=== PATIENT | female | born 1935 | race Caucasian/White ===

== ENCOUNTER 2016-08-16 07:23 | Day surgery (SDC) | payer OTHER, MEDICARE ==
[2016-08-10 12:46] VITALS: BMI 26.9
[2016-08-16] MEDS: TROPICAMIDE 1% OPHTH SOLN 15 ML BOTTLE ONE ×3 (08:45→08:55)
[2016-08-16] MEDS: CYCLOPENTOLATE 2% OPHTH SOLN 2 ML BOTTLE ONE ×3 (08:45→08:55)
[2016-08-16] MEDS: PHENYLEPHRINE 2.5% OPHTH SOLN 15 ML BOTTLE ONE ×3 (08:45→08:55)
[2016-08-16] MEDS: CIPROFLOXACIN 0.3% EYE DROPS 5 ML BOTTLE ONE ×3 (08:45→08:55)
[2016-08-16] MEDS ORDERED: CARBACHOL 0.01% INTRA-OCULAR 1.5 ML VIAL ONE (09:06)
[2016-08-16] MEDS ORDERED: BSS (NA/CA/MG/K) BALANCED SALT SOLUTION OPHTH SOLN 15 ML BOTTLE ONE (09:06)
[2016-08-16] MEDS ORDERED: MIDAZOLAM HCL 2 MG/2 ML SINGLE DOSE VIAL ONE (09:18)
[2016-08-16 10:12] VITALS: TEMP 98.7
--- NOTE | 2016-08-16 10:28 | OP ---
DATE OF PROCEDURE: 08/16/2016 OPERATIVE PROCEDURE: Lens Phacoemulsification with Posterior Chamber Intraocular Lens Placement, Right Eye PREOPERATIVE DIAGNOSIS: Visually Significant Cataract of Right Eye POSTOPERATIVE DIAGNOSIS: Visually Significant Cataract of Right Eye SURGEON: Lionel Jean M.D. ANESTHESIA: [facility] [place] ANESTHESIOLOGIST: PROCEDURE: The patient was brought to the operating room and placed under monitored anesthesia care by Anesthesia. A drop of Tetracaine was then placed over the right eye. The patient was then prepped and draped in the usual sterile manner. A speculum was then placed over the right eye. The eye was then well irrigated with copious amounts of BSS (balanced salt solution). The operating microscope was then moved into position. A paracentesis was performed using a 15 degree blade. At this point 0.5 mL of 1% preservative free-lidocaine was injected into the anterior chamber. Amvisc plus was then injected into the anterior chamber. A clear corneal incision was then formed using a 2.2 mm keratome. A capsulorrhexis was then performed in a continuous circular fashion beginning with a cystotome completed with an Utratas forceps. Hydrodissection was then performed using BSS on a cannula. The phaco probe was then introduced through the corneal wound and the cataract was removed using the phaco chop technique. Approximately 3 seconds of absolute phaco time was used. The remaining cortex was then removed using irrigation and aspiration with an I/A probe. The capsule was then filled with regular Amvisc and the capsule was noted to be intact. A previously selected foldable posterior chamber intraocular lens was then injected into the capsule through the corneal wound using a lens injector. It was then dialed into position using a Sinskey hook. The Amvisc was then removed using irrigation and aspiration. Miostat was then injected through the paracentesis to constrict the pupil. The paracentesis and corneal wound were then hydrated and noted to be water tight. A drop of Maxitrol was then placed over the eye. The speculum was removed and clear shield was taped over the eye. The patient tolerated the procedure well and there were no surgical complications. The patient was asked to follow up in my office the next day. LIONEL JEAN M.D. [id number]
[2016-08-16] MEDS ORDERED: ACETAMINOPHEN 325 MG TABLET (FP) ONE (10:35)
[2016-08-16 10:51] VITALS: BP 139/84; PULSE 82
[2016-08-16] MEDS ORDERED: LACTATED RINGERS SOLUTION 1,000 ML IV SCH (11:00)
[2016-08-16] MEDS ORDERED: ACETAMINOPHEN 325 MG TABLET (FP) PO PRN (14:08)
[2016-08-16] MEDS ORDERED: ONDANSETRON 4 MG/2 ML VIAL IVPUSH PRN (14:09)
== END 2016-08-16 10:45 | disposition home or self-care (01) ==
LOC: FASU 07:23
PROVIDERS: ATTEND Ophthalmology
PROC: 08RJ3JZ Replacement of Right Lens with Synthetic Substitute, Percutaneous Approach (ICD-10-PCS; principal; 2016-08-16 09:48)
DX: H26.8 Other specified cataract (principal)

== ENCOUNTER 2016-10-11 07:05 | Day surgery (SDC) | payer OTHER, MEDICARE ==
[2016-10-06 11:20] VITALS: BMI 26.9
[2016-10-11] MEDS ORDERED: CARBACHOL 0.01% INTRA-OCULAR 1.5 ML VIAL ONE (07:28)
[2016-10-11] MEDS ORDERED: BSS (NA/CA/MG/K) BALANCED SALT SOLUTION OPHTH SOLN 15 ML BOTTLE ONE (07:28)
[2016-10-11] MEDS ORDERED: LIDOCAINE 1% P/F 10 MG/ML VIAL ONE (07:28)
[2016-10-11] MEDS: PHENYLEPHRINE 2.5% OPHTH SOLN 15 ML BOTTLE ONE ×3 (07:35→07:45)
[2016-10-11] MEDS: CIPROFLOXACIN 0.3% EYE DROPS 5 ML BOTTLE ONE ×3 (07:35→07:45)
[2016-10-11] MEDS: TROPICAMIDE 1% OPHTH SOLN 15 ML BOTTLE ONE ×3 (07:35→07:45)
[2016-10-11] MEDS: CYCLOPENTOLATE 2% OPHTH SOLN 2 ML BOTTLE ONE ×3 (07:35→07:45)
[2016-10-11] MEDS ORDERED: MIDAZOLAM HCL 2 MG/2 ML SINGLE DOSE VIAL ONE (08:25)
--- NOTE | 2016-10-11 09:49 | OP ---
DATE OF OPERATION: 10/11/2016 OPERATIVE PROCEDURE: Lens phacoemulsification with posterior chamber intraocular lens placement left eye. PREOPERATIVE DIAGNOSIS: Visually significant cataract of left eye. POSTOPERATIVE DIAGNOSIS: Visually significant cataract of left eye. SURGEON: Lionel Jean M.D. ANESTHESIA: MAC PROCEDURE: The patient was brought to the operating room and placed under monitored anesthesia care by Anesthesia. A drop of tetracaine was then placed over the left eye. The patient was then prepped and draped in the usual sterile manner. A speculum was then placed over the left eye. The eye was then well irrigated with copious amounts of BSS (balanced salt solution). The operating microscope was then moved into position. A paracentesis was performed using a 15 degree blade. At this point 0.5 mL of 1% preservative-free lidocaine was injected into the anterior chamber. Amvisc Plus was then injected into the anterior chamber. A clear corneal incision was then formed using a 2.2 mm keratome. A capsulorrhexis was then performed in a continuous circular fashion beginning with a cystotome and completed with Utrata forceps. Hydrodissection was then performed using BSS on a cannula. The phaco probe was then introduced through the corneal wound and the cataract was removed using the phaco chop technique. Approximately 3 seconds of absolute phaco time was used. The remaining cortex was then removed using irrigation and aspiration with an I/A probe. The capsule was then filled with regular Amvisc and the capsule was noted to be intact. A previously selected foldable posterior chamber intraocular lens was then injected into the capsule through the corneal wound using a lens injector. It was then dialed into position using a Sinskey hook. The Amvisc was then removed using irrigation and aspiration. Miostat was then injected through the paracentesis to constrict the pupil. The paracentesis and corneal wound were then hydrated and noted to be watertight. A drop of Maxitrol was then placed over the eye. The speculum was removed and clear shield was taped over the eye. The patient tolerated the procedure well and there were no surgical complications. The patient was asked to follow up in my office the next day. LIONEL JEAN M.D. [id number]
[2016-10-11 17:50] VITALS: BP 138/76; PULSE 74; TEMP 97.8
== END 2016-10-11 09:35 | disposition home or self-care (01) ==
LOC: FASU 07:05
PROVIDERS: ATTEND Ophthalmology
PROC: 08RK3JZ Replacement of Left Lens with Synthetic Substitute, Percutaneous Approach (ICD-10-PCS; principal; 2016-10-11 08:44)
DX: H26.8 Other specified cataract (principal)

== ENCOUNTER 2016-12-29 14:19 | Inpatient (IN) | payer OTHER, MEDICARE ==
[2016-12-29] MEDS ORDERED: ALBUTEROL SO4 2.5/IPRATROPIUM 0.5 INH SOL 3 ML VIAL.NEB. NEB ONE ×3 (14:43→15:19)
--- NOTE | 2016-12-29 14:45 | PDOC ---
History of Present Illness - General History Source: Patient Exam Limitations: No Limitations - History of Present Illness Initial Comments: 12/29/16 15:01 The patient is a 81 year old female with a significant past medical history of COPD, hypertension, asthma and GERD, who presents to the ED with complaints of shortness of breath and mouth dryness for one day. The patient reports shortness of breath with an associated dry cough. She reports back pain and chest pain associated with cough. She states she has difficulty swallowing secondary to dry mouth. The patient also reports a loss of appetite. The patient reports visiting her PMD over a week ago and just finished 10 days worth of antibiotics for COPD. She also reports started a new pack of steroids today. PMH: COPD, asthma, hypertension, GERD, seasonal allergies, chronic back pain Surgical hx: Cataract removal (2016), Uterine Lift Surgery (over 50 years ago) Social hx:The patient lives at home with her family. Denies smoking, alcohol, or drug use PMD: Dr. Roy. <Florencia Hernandez - Last Filed: 12/29/16 16:04> <Adam Worley - Last Filed: 01/10/17 07:17> - General Chief Complaint: Shortness of Breath Stated Complaint: SOB Time Seen by Provider: 12/29/16 14:27 Past History <Florencia Hernandez - Last Filed: 12/29/16 16:04> - Past Medical History Anemia: No Asthma: Yes Cancer: No Cardiac Disorders: No CVA: No COPD: No CHF: No Dementia: No Diabetes: No GI Disorders: Yes (PATIENT WITH COUGH-NO SPECIFIC REFLUX) Disorders: No HTN: Yes Hypercholesterolemia: No Liver Disease: No Suicide Attempt (Hx): No Seizures: No Thyroid Disease: No - Surgical History Abdominal Surgery: No Appendectomy: No Cardiac Surgery: No Cholecystectomy: No Lung Surgery: No Neurologic Surgery: No Orthopedic Surgery: No - Psycho/Social/Smoking Cessation Hx Anxiety: No Suicidal Ideation: No Smoking Status: No Smoking History: Never smoked Have you smoked in the past 12 months: No Number of Cigarettes Smoked Daily: 0 Hx Alcohol Use: No Drug/Substance Use Hx: No Substance Use Type: None Hx Substance Use Treatment: No <Adam Worley - Last Filed: 01/10/17 07:17> - Past Medical History Allergies/Adverse Reactions: Allergies Allergy/AdvReac Type Severity Reaction Status Date / Time influenza virus vaccine, Allergy Severe Vomiting Verified 10/11/16 07:43 specific [influenza virus vacc,specific] Home Medications: Ambulatory Orders Loratadine [Claritin -] 10 mg PO DAILY 11/08/15 Omeprazole 20 mg PO DAILY tablet 11/27/16 Levofloxacin [Levaquin] 750 mg PO DAILY #5 tab 12/31/16 Review of Systems - Review of Systems Able to Perform ROS?: Yes Comments:: 12/29/16 15:02 CONSTITUTIONAL: + loss of appetite No reported: Fever, Chills, Diaphoresis, Generalized Weakness, Malaise HEENT: +dry mouth, difficulty swallowing No reported: Rhinorrhea, Nasal Congestion, Throat Pain, Throat Swelling, Mouth Swelling, Ear Pain, Eye Pain, Visual Changes CARDIOVASCULAR: No reported: Chest Pain, Syncope, Palpitations, Irregular Heart Rate, Lightheadedness, Peripheral Edema RESPIRATORY: +cough, shortness of breath No reported: SOB with Exertion, Orthopnea, Wheezing, Stridor, Hemoptysis GASTROINTESTINAL: No reported: Abdominal pain, Abdominal Distension, Nausea, Vomiting, Diarrhea, Constipation, Melena, Hematochezia GENITOURINARY: No reported: Dysuria, Frequency, Urgency, Hesitancy, Flank Pain, Genital Pain MUSCULOSKELETAL: +chest pain, back pain No reported: Joint Swelling, Neck Pain SKIN: No reported: Rash, Itching, Pallor HEMEATOLOGIC/IMMUNOLOGIC: No reported: Easy Bleeding, Easy Bruising, Lymphadenopathy, Frequent infections ENDOCRINE: No reported: Unexplained Weight Gain, Unexplained Weight Loss, Heat Intolerance , Cold Intolerance NEUROLOGIC: No reported: Headache, Focal Weakness, Paresthesias, Vertigo, Lightheadedness, Unsteady Gait, Seizure, Mental Status Changes, Incontinence PSYCHIATRIC: No reported: Anxiety, Depression All Other Systems: Reviewed and Negative <Florencia Hernandez - Last Filed: 12/29/16 16:04> *Physical Exam - Physical Exam Comments: 12/29/16 15:03 GENERAL: Well developed, well nourished. Awake and alert. No acute distress. HEENT: Normocephalic, atraumatic. PERRLA, EOMI. No conjunctival pallor. Sclera are non- icteric. Moist mucous membranes. Oropharynx is clear. NECK: Supple. Full ROM. No JVD. Carotid pulses 2+ and symmetric, without bruits. No thyromegaly. No lymphadenopathy. CARDIOVASCULAR: Regular rate and rhythm. No murmurs, rubs, or gallops. Distal pulses are 2+ and symmetric. PULMONARY: + Rales in both bases posteriorly, no wheezes, rhonchi, tachypnea, or observable dyspnea. ABDOMINAL: Soft. Non-tender. Non-distended. No rebound or guarding. No organomegaly. Normoactive bowel sounds. MUSCULOSKELETAL Normal range of motion at all joints. No bony deformities or tenderness. No CVA tenderness. EXTREMITIES: No cyanosis. No clubbing. No edema. No calf tenderness. SKIN: Warm and dry. Normal capillary refill. No rashes. No jaundice. NEUROLOGICAL: Alert, awake, appropriate. Cranial nerves 2-12 intact. No deficits to light touch and temperature in face, upper extremities and lower extremities. No motor deficits in the in face, upper extremities and lower extremities. Normoreflexic in the upper and lower extremities. Normal speech. Toes are down- going bilaterally. Gait is normal without ataxia. PSYCHIATRIC: Cooperative. Good eye contact. Appropriate mood and affect. <Florencia Hernandez - Last Filed: 12/29/16 16:04> ED Treatment Course - LABORATORY CBC & Chemistry Diagram: 12/29/16 14:45 - RADIOLOGY Radiograph Interpretation: 12/29/16 16:04 RAD/CHEST PA & LAT Impression: 2 views of the chest have been submitted. Since 07/13/16, there are progressive bibasilar atelectatic changes with large heart and unfolded aorta. Follow-up recommended. Reported by: Keenan Londono - Medications Given in the ED: ED Medications Discontinued Medications Generic Name Dose Route Start Last Admin Trade Name Freq PRN Reason Stop Dose Admin Albuterol/Ipratropium 1 amp 12/29/16 14:44 12/29/16 14:49 Duoneb - NEB 12/29/16 14:45 1 amp ONCE ONE Administration <Florencia Hernandez - Last Filed: 12/29/16 16:04> - LABORATORY CBC & Chemistry Diagram: 12/31/16 06:15 12/31/16 06:15 <Adam Worley - Last Filed: 01/10/17 07:17> Medical Decision Making - Medical Decision Making 12/29/16 18:40 Chest x-ray shows new bibasilar infiltrates compared to old film 07/13/2016 Patient with cough, shortness of breath, and low O2 saturation of 88-90 on room air, compared to her baseline of 94-95. White blood count is also significantly elevated at 27,000. Lactic acid is negative, and patient does not appear toxic. She is admitted to the hospitalist service for further treatment of her presumed pneumonia. <Adam Worley - Last Filed: 01/10/17 07:17> *DC/Admit/Observation/Transfer - Attestations Scribe Attestion: 12/29/16 15:03 Documentation prepared by Florencia Hernandez, acting as medical technologist chief for Adam Carrasco MD <Florencia Hernandez - Last Filed: 12/29/16 16:04> - Discharge Dispostion Admit: Yes <Adam Worley - Last Filed: 01/10/17 07:17> Diagnosis at time of Disposition: Pneumonia Qualifiers: Pneumonia type: due to unspecified organism Laterality: bilateral Lung location : lower lobe of lung Qualified Code(s): J18.9 - Pneumonia, unspecified organism - Prescriptions
[2016-12-29 15:43] LABS: MCH 29.2 pg (25.7-33.7); MCHC 33.3 g/dl (32.0-36.0); MEAN CELL VOLUME 87.5 fl (80-96); MEAN PLT VOLUME 9.9 fl (7.5-11.1); PLATELET COUNT 196 K/MM3 (134-434); RDW 12.5 % (11.6-15.6); WHITE BLOOD COUNT 27.4 K/mm3 (4.0-10.8)
[2016-12-29 15:51] LABS: CPK(DFH) 41 IU/L (26-140)
[2016-12-29 15:52] LABS: ALBUMIN 3.8 g/dl (3.5-5.0); ALK PHOS 43 U/L (32-92); ANION GAP 9 (8-16); BILIRUBIN,TOTAL 1.1 mg/dl (0.2-1.0); CO2 28 mmol/L (22-28); CREATININE 0.7 mg/dl (0.6-1.3); GLUCOSE,RANDOM 161 mg/dl (74-106); SGOT/AST 30 U/L (10-42); SGPT/ALT 22 U/L (10-40); TOT PROT 6.9 g/dl (6.4-8.3)
[2016-12-29 16:52] LABS: TROPONIN I (DFP) < 0.03 ng/ml (0.03-0.50)
[2016-12-29 18:26] LABS: MCH 29.5 pg (25.7-33.7); MCHC 33.5 g/dl (32.0-36.0); MEAN PLT VOLUME 10.2 fl (7.5-11.1); PLATELET COUNT 183 K/MM3 (134-434); RDW 12.3 % (11.6-15.6)
[2016-12-29 18:27] LABS: PLATELET ESTIMATE ADEQUATE (NORMAL)
[2016-12-29] MEDS ORDERED: CEFTRIAXONE 1 GM in DEXTROSE 5%-WATER - 50 ML IVPB ONE (18:39)
[2016-12-29] MEDS ORDERED: AZITHROMYCIN IVPB 500 MG in DEXTROSE 5%-WATER - 250 ML IVPB ONE (18:40)
[2016-12-29] MEDS ORDERED: cefTRIAXone SODIUM 1 GM VIAL ONE (19:05)
[2016-12-29] MEDS ORDERED: AZITHROMYCIN 500 MG VIAL IVPB ONE (19:05)
[2016-12-29 21:28] VITALS: BMI 25.2
--- NOTE | 2016-12-29 22:02 | HP ---
CHIEF COMPLAINT: cough/chest pain PCP: [facility] HISTORY OF PRESENT ILLNESS: This is an 81 year old female with a past medical history significant for COPD, HTN, Ashtma, GERD who presented with cough, SOB and back/chest pain with cough as per ED note. Pt denies any SOB, just cough and pain. States the pain only occurs when she is coughing. Completed course of antibiotics recently for COPD exacerbation and steroids. ER course was notable for: (1) Ox sat 89-90 RA (2) given ceftriaxone and zithromax (3) Recent Travel: pt denies PAST MEDICAL HISTORY: COPD/asthma HTN GERD chronic back pain PAST SURGICAL HISTORY: cataract removal 2016 uterine lift over 50 years ago Social History: Smoking: pt denies Alcohol: pt denies Drugs: pt denies Family History: mom-ovarian ca sister- colon ca Allergies influenza virus vaccine, specific [influenza virus vacc,specific] Allergy ( Severe, Verified 10/11/16 07:43) Vomiting Home Medications 3 Medication Instructions Recorded Loratadine [Claritin -] 10 mg PO DAILY 11/08/15 Omeprazole 20 mg PO DAILY tablet 11/27/16 Norvasc 2.5mg PO DAILY Albuterol Zoloft 25mg PO DAILY HS REVIEW OF SYSTEMS CONSTITUTIONAL: Absent: fever, chills, diaphoresis, generalized weakness, malaise, loss of appetite, weight change HEENT: Absent: rhinorrhea, nasal congestion, throat pain, throat swelling, difficulty swallowing, mouth swelling, ear pain, eye pain, visual changes CARDIOVASCULAR: Present: chest pain Absent: syncope, palpitations, irregular heart rate, lightheadedness, peripheral edema RESPIRATORY: Present: cough, shortness of breath Absent: dyspnea with exertion, orthopnea, wheezing, stridor, hemoptysis GASTROINTESTINAL: Absent: abdominal pain, abdominal distension, nausea, vomiting, diarrhea, constipation, melena, hematochezia GENITOURINARY: Absent: dysuria, frequency, urgency, hesitancy, hematuria, flank pain, genital pain MUSCULOSKELETAL: Absent: myalgia, arthralgia, joint swelling, back pain, neck pain SKIN: Absent: rash, itching, pallor HEMATOLOGIC/IMMUNOLOGIC: Absent: easy bleeding, easy bruising, lymphadenopathy, frequent infections ENDOCRINE: Absent: unexplained weight gain, unexplained weight loss, heat intolerance, cold intolerance NEUROLOGIC: Absent: headache, focal weakness or paresthesias, dizziness, unsteady gait, seizure, mental status changes, bladder or bowel incontinence PSYCHIATRIC: Absent: anxiety, depression, suicidal or homicidal ideation, hallucinations. PHYSICAL EXAMINATION Vital Signs - 24 hr 3 12/29/16 12/29/16 12/29/16 12/29/16 14:19 15:57 18:25 20:08 Temperature 98.3 F 98 F 98.2 F Pulse Rate 115 H 110 H Pulse Rate [ 99 H 91 H Left] Respiratory 20 17 18 Rate Blood Pressure 150/81 138/65 Blood Pressure 111/64 [Right Arm] O2 Sat by Pulse 90 L 90 L 93 L 98 Oximetry (%) GENERAL: Awake, alert, and fully oriented, in no acute distress. HEAD: Normal with no signs of trauma. EYES: Pupils equal, round and reactive to light, extraocular movements intact, sclera anicteric, conjunctiva clear. No lid lag. EARS, NOSE, THROAT: Ears normal, nares patent, oropharynx clear without exudates. Moist mucous membranes. NECK: Normal range of motion, supple without lymphadenopathy, JVD, or masses. LUNGS: No wheezes, and no crackles. No accessory muscle use. + rhochi L base, diminished R base HEART: Regular rate and rhythm, normal S1 and S2 without murmur, rub or gallop. ABDOMEN: Soft, nontender, not distended, normoactive bowel sounds, no guarding, no rebound, no masses. No hepatomegaly or splenomegaly. MUSCULOSKELETAL: Normal range of motion at all joints. No bony deformities or tenderness. No CVA tenderness. UPPER EXTREMITIES: 2+ pulses, warm, well-perfused. No cyanosis. No clubbing. No peripheral edema. LOWER EXTREMITIES: 2+ pulses, warm, well-perfused. No calf tenderness. No peripheral edema. NEUROLOGICAL: Cranial nerves II-XII intact. Normal speech. Normal gait. PSYCHIATRIC: Cooperative. Good eye contact. Appropriate mood and affect. SKIN: Warm, dry, normal turgor, no rashes or lesions noted, normal capillary refill. Laboratory Results - last 24 hr 3 12/29/16 12/29/16 12/29/16 14:45 14:45 14:45 WBC 27.4 H D RBC 4.52 Hgb 13.2 Hct 39.5 MCV 87.5 MCHC 33.3 RDW 12.5 Plt Count 196 MPV 9.9 Neutrophils % 93.0 H Lymphocytes % 3.0 L D Monocytes % 1.0 L Band Neutrophils 3.0 Platelet Estimate Adequate Sodium 139 Potassium 4.4 Chloride 102 Carbon Dioxide 28 Anion Gap 9 BUN 18 Creatinine 0.7 Creat Clearance w eGFR > 60 Random Glucose 161 H D Lactic Acid Calcium 9.0 Total Bilirubin 1.1 H D AST 30 D ALT 22 D Alkaline Phosphatase 43 Creatine Kinase 41 Troponin I < 0.03 L Total Protein 6.9 Albumin 3.8 3 12/29/16 12/29/16 17:30 18:30 WBC 24.0 H RBC 4.32 Hgb 12.8 Hct 38.0 MCV 88.0 MCHC 33.5 RDW 12.3 Plt Count 183 MPV 10.2 Neutrophils % Y Lymphocytes % Y Monocytes % Band Neutrophils Platelet Estimate Sodium Potassium Chloride Carbon Dioxide Anion Gap BUN Creatinine Creat Clearance w eGFR Random Glucose Lactic Acid 1.695 Calcium Total Bilirubin AST ALT Alkaline Phosphatase Creatine Kinase Troponin I Total Protein Albumin CHEST PA LAT Chest: Shortness of breath. 2 views of the chest have been submitted. Since 07/13/2016, there are progressive bibasilar atelectatic changes with large heart and unfolded aorta. Follow-up recommended. ECG: Sinus tachy rate 102,QTC 450, no acute ST/T wave chanes, cannot r/o inferior infarct, age undetermined ASSESSMENT/PLAN: 81yF with PMH COPD, HTN, Ashtma, GERD, chronic back pain presented with cough with chest and back pain. She is being admitted for pneumonia. Sepsis secondary to community acquired pneumonia - cont ceftriaxone and zofran - monitor CBC, response to antibiotics, ID consult if not improving. COPD exac/hypoxia due to CAP - oxygen 2L NC to maintain sat 90-94 - defer steroids at present as no active wheezing - d/c home albuterol, start duoneb QID Chest pain - likely due to cough although not reproducible - troponin with AM labs Hypertension - cont home amlodipine, BP stable with same. GERD - home omeprazole changed to formulary protonix DVT PPX - heparin 5000u Q8H FEN - defer IVF, appears euvolemic - repeat BMP in am - low sodium diet Dispo: Pt currently requires inpatient management of her emergent condition. Visit type - Emergency Visit Emergency Visit: Yes ED Registration Date: 12/29/16 Care time: The patient presented to the Emergency Department on the above date and was hospitalized for further evaluation of their emergent condition. - New Patient This patient is new to me today: Yes Date on this admission: 12/29/16 - Critical Care Critical Care patient: No
[2016-12-29] MEDS: SERTRALINE HCL 25 MG TABLET (FP) PO SCH (22:28)
[2016-12-30] MEDS: ALBUTEROL SO4 2.5/IPRATROPIUM 0.5 INH SOL 3 ML VIAL.NEB. NEB SCH ×4 (00:07→18:42)
[2016-12-30] MEDS: HEPARIN NA (PORCINE) 5,000 UNITS/ML 1ML VIAL SQ SCH ×3 (02:04→18:42)
[2016-12-30 07:59] LABS: BASOPHIL 1.5 % (0-2.0); EOSINOPHIL 0.5 % (0-4.5); MCHC 33.8 g/dl (32.0-36.0); MEAN CELL VOLUME 88.7 fl (80-96); MEAN PLT VOLUME 9.6 fl (7.5-11.1); NEUTROPHILS 79.5 % (42.8-82.8); PLATELET COUNT 154 K/MM3 (134-434); RDW 12.1 % (11.6-15.6); WHITE BLOOD COUNT 12.4 K/mm3 (4.0-10.8)
[2016-12-30] MEDS ORDERED: CEFTRIAXONE 1 GM in DEXTROSE 5%-WATER - 50 ML IVPB SCH (10:00)
[2016-12-30] MEDS ORDERED: PATIENT'S OWN MEDICATION (NON-FORMULARY) (Omeprazole [Omeprazole] 20 MG) PO SCH (10:00)
[2016-12-30] MEDS ORDERED: AZITHROMYCIN IVPB 500 MG in DEXTROSE 5%-WATER - 250 ML IVPB SCH (10:00)
--- NOTE | 2016-12-30 10:12 | PN ---
Physical Exam: Exam conducted with assistance of [employer] Supervisor #[id number]. SUBJECTIVE: Patient seen and examined. Still complaining of productive cough, chest pain with coughing. States shortness of breath has improved, but still feels that she needs O2. OBJECTIVE: WBC trended down from 24.0 to 12.4. Vital Signs Period Temp Pulse Resp BP Sys/Carr Pulse Ox Last 24 Hr 98.2 F 77 19 137/66 97 GENERAL: The patient is awake, alert, and fully oriented, in no acute distress. EYES: PERRL, extraocular movements intact, sclera anicteric, conjunctiva clear. No ptosis. ENT: Ears normal, nares patent, oropharynx clear without exudates, moist mucous membranes. NECK: Trachea midline, full range of motion, supple. LUNGS: Breath sounds equal, clear to auscultation bilaterally, no wheezes, no crackles, no accessory muscle use. HEART: Regular rate and rhythm, S1, S2 without murmur, rub or gallop. ABDOMEN: Soft, nontender, nondistended, normoactive bowel sounds, no guarding, no rebound, no hepatosplenomegaly, no masses. EXTREMITIES: 2+ pulses, warm, well-perfused, no edema. NEUROLOGICAL: Cranial nerves II through XII grossly intact. Normal speech, gait not observed. PSYCH: Normal mood, normal affect. SKIN: Warm, dry, normal turgor, no rashes or lesions noted Laboratory Results - last 24 hr 12/30/16 07:15 WBC 12.4 H D RBC 3.87 Hgb 11.6 Hct 34.3 MCV 88.7 MCHC 33.8 RDW 12.1 Plt Count 154 MPV 9.6 Neutrophils % 79.5 Lymphocytes % 14.1 D Monocytes % 4.4 D Eosinophils % 0.5 Basophils % 1.5 Active Medications Generic Name Dose Route Start Last Admin Trade Name Freq PRN Reason Stop Dose Admin Albuterol/Ipratropium 1 amp 12/30/16 00:00 12/30/16 05:56 Duoneb - NEB 1 amp QIDR JOSELINE Administration Amlodipine Besylate 2.5 mg 12/30/16 10:00 Norvasc - PO DAILY JOSELINE Azithromycin 500 mg 12/30/16 10:00 Zithromax 500mg Ivpb (Pre-Docked) IVPB DAILY JOSELINE Ceftriaxone Sodium 1 gm 12/30/16 10:00 Rocephin 1gm Ivpb (Pre-Docked) IVPB DAILY JOSELINE Heparin Sodium (Porcine) 5,000 unit 12/30/16 02:00 12/30/16 02:04 Heparin - SQ 5,000 unit Q8H-IV JOSELINE Administration Loratadine 10 mg 12/30/16 10:00 Claritin - PO DAILY JOSELINE Pantoprazole Sodium 20 mg 12/30/16 10:00 Protonix - PO DAILY JOSELINE Sertraline HCl 25 mg 12/29/16 22:00 12/29/16 22:28 Zoloft - PO 25 mg HS JOSELINE Administration ASSESSMENT/PLAN: 81 year old female with CAP and exacerbation of COPD. 1. Sepsis secondary to Community Acquired Pneumonia (tachycardia, leukocytosis) -Continue Ceftriaxone/Azithromycin -May need to broaden if not improving as just completed outpatient course of Cefuroxime -Follow up blood cultures -Follow fever, WBC curve (leukocytosis improving, so far afebrile here) 2. Chest pain -Suspect secondary to coughing -Troponins neg x 2, >12 hrs apart -No EKG changes -Tylenol #3 prn to aid with pain, cough 3. COPD exacerbation -Has improved without steroids here -Continue DuoNebs q6h 4. HTN -BPs at goal -Continue home Norvasc 5. GERD -Patient prefers to take home omeprazole rather than formulary pantoprazole 6. F/E/N -Low sodium diet -Replete lytes as needed 7. Ppx -Sqh 5000 units q8h Dispo: Continues to require inpatient care pending weaning O2. Visit type - Emergency Visit Emergency Visit: Yes ED Registration Date: 12/29/16 Care time: The patient presented to the Emergency Department on the above date and was hospitalized for further evaluation of their emergent condition. - New Patient This patient is new to me today: Yes Date on this admission: 12/30/16 - Critical Care Critical Care patient: No - Discharge Referral Referred to [facility] Med P.C[facility] Yes Physician Referral: Huy Roy MD (Int Med)
[2016-12-30 10:14] LABS: CALCIUM 8.3 mg/dl (8.4-10.2); COCKROFT - GAULT 58.2675; CREATININE 0.7 mg/dl (0.6-1.3); MAGNESIUM 2.1 mg/dL (1.8-2.4); PHOSPHOROUS 3.5 mg/dl (2.5-4.6)
[2016-12-30] MEDS: PANTOPRAZOLE 20 MG TABLET (FP) PO SCH (10:31)
[2016-12-30] MEDS: amLODIPine BESYLATE 2.5 MG TABLET (FP) PO SCH (10:31)
[2016-12-30] MEDS: LORATADINE 10 MG TABLET PO SCH (10:31)
[2016-12-30] MEDS: cefTRIAXone 1 GM/50 ML BAG (PRE-DOCKED) IVPB SCH (10:38)
[2016-12-30] MEDS: AZITHROMYCIN IVPB 500 MG/250 ML D5W PRE-DOCKED IVPB SCH (10:38)
[2016-12-30] MEDS ORDERED: ACETAMINOPHEN WITH CODEINE 300MG/30MG TABLET PO PRN ×2 (10:54→12:20)
--- NOTE | 2016-12-30 16:15 | EKG ---
Test Reason : Blood Pressure : / mmHG Vent. Rate : 102 BPM Atrial Rate : 102 BPM P-R Int : 182 ms QRS Dur : 082 ms QT Int : 346 ms P-R-T Axes : 051 -01 031 degrees QTc Int : 450 ms SINUS TACHYCARDIA CANNOT RULE OUT INFERIOR INFARCT , AGE UNDETERMINED POOR R WAVE PROGRESSION WHEN COMPARED WITH ECG OF 30-MAR-2015 15:59, T WAVE INVERSION NO LONGER EVIDENT IN LATERAL LEADS Confirmed by MD LARRY, MICHELLE ([id number]) on 12/30/2016 4:14:51 PM Referred By: MD GUEVARA Confirmed By:MICHELLE JUAREZ MD
[2016-12-30] MEDS: SERTRALINE HCL 25 MG TABLET (FP) PO SCH (21:50)
[2016-12-31] MEDS: HEPARIN NA (PORCINE) 5,000 UNITS/ML 1ML VIAL SQ SCH ×3 (02:37→17:23)
[2016-12-31] MEDS: ALBUTEROL SO4 2.5/IPRATROPIUM 0.5 INH SOL 3 ML VIAL.NEB. NEB SCH ×5 (02:37→23:47)
[2016-12-31 08:13] LABS: MCH 30.3 pg (25.7-33.7); MCHC 33.8 g/dl (32.0-36.0); MEAN CELL VOLUME 89.4 fl (80-96); MEAN PLT VOLUME 11.1 fl (7.5-11.1); PLATELET COUNT 150 K/MM3 (134-434); RDW 12.3 % (11.6-15.6); WHITE BLOOD COUNT 10.6 K/mm3 (4.0-10.8)
[2016-12-31 08:15] LABS: ANION GAP 5 (8-16); CALCIUM 8.2 mg/dl (8.4-10.2); CO2 27 mmol/L (22-28); CREATININE 0.6 mg/dl (0.6-1.3); GLUCOSE,RANDOM 97 mg/dl (74-106)
--- NOTE | 2016-12-31 09:11 | DS ---
Physical Exam: SUBJECTIVE: Patient seen and examined. Feeling better today, still some cough, but chest pain has resolved. No shortness of breath. OBJECTIVE: WBC has trended down to 10.6 (27.4 on admission). Vital Signs Period Temp Pulse Resp BP Sys/Carr Pulse Ox Last 24 Hr 98.2 F-98.7 F 78-95 16-18 115-148/61-62 93-97 PHYSICAL EXAM GENERAL: The patient is awake, alert, and fully oriented, in no acute distress. HEAD: Normal with no signs of trauma. EYES: PERRL, extraocular movements intact, sclera anicteric, conjunctiva clear. ENT: Ears normal, nares patent, oropharynx clear without exudates, moist mucous membranes. NECK: Trachea midline, full range of motion, supple. LUNGS: Breath sounds equal, clear to auscultation bilaterally, no wheezes, no crackles, no accessory muscle use. HEART: Regular rate and rhythm, S1, S2 without murmur, rub or gallop. ABDOMEN: Soft, nontender, nondistended, normoactive bowel sounds, no guarding, no rebound, no hepatosplenomegaly, no masses. EXTREMITIES: 2+ pulses, warm, well-perfused, no edema. NEUROLOGICAL: Cranial nerves II through XII grossly intact. Normal speech, gait not observed. PSYCH: Normal mood, normal affect. SKIN: Warm, dry, normal turgor, no rashes or lesions noted. LABS Laboratory Results - last 24 hr 12/30/16 12/31/16 12/31/16 07:15 06:15 06:15 WBC 10.6 RBC 3.84 Hgb 11.6 Hct 34.3 MCV 89.4 MCHC 33.8 RDW 12.3 Plt Count 150 MPV 11.1 D Neutrophils % Y Lymphocytes % Y Sodium 135 L 134 L Potassium 3.7 3.7 Chloride 103 102 Carbon Dioxide 28 27 Anion Gap 4 L 5 L BUN 21 H 16 D Creatinine 0.7 0.6 Random Glucose 103 D 97 Calcium 8.3 L 8.2 L Phosphorus 3.5 Magnesium 2.1 Troponin I 0.00 B-Natriuretic Peptide 2222.41 H HOSPITAL COURSE: This is an 81 year old female with a history of asthma/COPD, HTN, and GERD who admitted from the ED on 12/29 with cough, shortness of breath and back/chest pain with cough. Of note, she recently completed a course of prednisone and cefuroxime for similar symptoms. ED course was notable for: WBC: 27.4 CXR with possible bibasilar infiltrates SpO2 89-90% on RA The patient was admitted and started on Ceftriaxone/Azithromycin for CAP. She was given DuoNebs and Tylenol #3. Additional steroids were not given as no wheezing was present. Troponins were negative x 2 >12 hrs apart. BNP was elevated at 2222, but there were no signs of fluid overload on exam. The patient remained afebrile. Blood cultures are negative to date. Today, SpO2 is 94% on RA. The patient denies any shortness of breath or chest pain. She will be discharged with an additional 5 days of treatment with Levaquin ( recently completed course of cephalosporin) and instructions to follow up with Dr. Roy. Return precautions reviewed. Date of Discharge: 12/31/16 Minutes to complete discharge: 35 Discharge Summary Reason For Visit: PNEUMONIA Current Active Problems Pneumonia (Acute) - Home Medications Comprehensive Discharge Medication List: Ambulatory Orders Loratadine [Claritin -] 10 mg PO DAILY 11/08/15 Omeprazole 20 mg PO DAILY tablet 11/27/16 Levofloxacin [Levaquin] 750 mg PO DAILY #5 tab 12/31/16 This patient is new to me today: Yes Date on this admission: 12/31/16 Emergency Visit: Yes ED Registration Date: 12/29/16 Care time: The patient presented to the Emergency Department on the above date and was hospitalized for further evaluation of their emergent condition. Critical Care patient: No - Discharge Referral Referred to [facility] Med [facility] Yes Physician Referral: Huy Roy MD (Int Med)
[2016-12-31] MEDS: AZITHROMYCIN IVPB 500 MG/250 ML D5W PRE-DOCKED IVPB SCH (09:19)
[2016-12-31] MEDS: cefTRIAXone 1 GM/50 ML BAG (PRE-DOCKED) IVPB SCH (09:19)
[2016-12-31] MEDS: amLODIPine BESYLATE 2.5 MG TABLET (FP) PO SCH (09:23)
[2016-12-31] MEDS: LORATADINE 10 MG TABLET PO SCH (09:23)
[2016-12-31] MEDS: PANTOPRAZOLE 20 MG TABLET (FP) PO SCH (09:23)
[2016-12-31] MEDS ORDERED: MECLIZINE HCL 25 MG TABLET (FP) PO ONE (12:07)
--- NOTE | 2016-12-31 12:11 | HOSP ---
Physical Examination Vital Signs: Vital Signs Temperature 98.4 F 12/31/16 06:15 Pulse Rate 101 H 12/31/16 12:05 Respiratory Rate 18 12/31/16 12:05 Blood Pressure 185/87 12/31/16 12:05 O2 Sat by Pulse Oximetry (%) 94 L 12/31/16 06:15 Labs: CBC, BMP 12/31/16 06:15 12/31/16 06:15 Hospitalist Encounter Assessment: Patient prepared for discharge. While sitting in chair, started coughing. Became very dizzy (describes as "room spinning"), near syncopal, developed headache. Assisted back to bed. V/s notable for BP 185/87, P 101. -EKG obtained: NSR, rate of 90, no ST or T wave changes -Will obtain CTH -Will obtain orthostatic v/s -Trial of Meclizine 25mg PO for dizziness Will keep patient in hospital overnight for continued evaluation. CTH: No acute intracranial pathology. Some abnormal findings in the c-spine which daughter states were previously known.
[2016-12-31 14:55] LABS: PLATELET ESTIMATE ADEQUATE (NORMAL)
[2016-12-31] MEDS: SERTRALINE HCL 25 MG TABLET (FP) PO SCH (22:15)
[2017-01-01] MEDS: HEPARIN NA (PORCINE) 5,000 UNITS/ML 1ML VIAL SQ SCH (01:40)
[2017-01-01] MEDS: ALBUTEROL SO4 2.5/IPRATROPIUM 0.5 INH SOL 3 ML VIAL.NEB. NEB SCH (06:22)
[2017-01-01 06:47] VITALS: BP 142/65; PULSE 79; TEMP 97.9
--- NOTE | 2017-01-01 13:57 | EKG ---
Test Reason : Blood Pressure : / mmHG Vent. Rate : 090 BPM Atrial Rate : 090 BPM P-R Int : 184 ms QRS Dur : 088 ms QT Int : 356 ms P-R-T Axes : 061 014 027 degrees QTc Int : 435 ms NORMAL SINUS RHYTHM POOR R WAVE PROGRESSION WHEN COMPARED WITH ECG OF 29-DEC-2016 19:41, NO SIGNIFICANT CHANGE WAS FOUND Confirmed by MD JUAREZ MARJORY ([id number]) on 01/01/2017 1:57:14 PM Referred By: AISHA Confirmed By:MICHELLE JUAREZ MD
== END 2017-01-01 08:50 | disposition home or self-care (01) | DRG 871 ==
LOC: FER 14:19 → FM/S 20:08
PROVIDERS: ADMIT Internal Medicine; ATTEND Nurse Practitioner Family
DX: A41.9 Sepsis, unspecified organism (principal); J18.9 Pneumonia, unspecified organism; J44.1 Chronic obstructive pulmonary disease with (acute) exacerbation; I10 Essential (primary) hypertension; K21.9 Gastro-esophageal reflux disease without esophagitis; R07.9 Chest pain, unspecified
CPT/HCPCS: 36415; 70450-TC; 71020-TC; 80048; 80053; 82550; 83605; 83735; 83880; 84100; 84484; 85025; 87040; 93005; 94640; 99283-25; J1644

== ENCOUNTER 2017-03-12 17:40 | Emergency (ER) | payer OTHER, MEDICARE ==
[2017-03-12 18:01] VITALS: BP 162/62; PULSE 81; TEMP 98.1; BMI 25.7
--- NOTE | 2017-03-12 18:05 | PDOC ---
History of Present Illness - General History Source: Patient Exam Limitations: No Limitations - History of Present Illness Initial Comments: 03/12/17 18:21 The patient is a 81 year old female, with a significant past medical history of hypertension, asthma, chronic cough, and GERD, who presents to the emergency department complaining of dizziness since earlier this morning. As per daughter , the patient was going to put away her nebulizer, when she began to feel dizzy and fell. Daughter denies that the pt reported any head trauma or LOC. Patient s dizziness resolved after the incident, but worsened early in the afternoon. Daughter describes the dizziness as if the room were spinning. Pt has been evaluated in the past for vertigo, but according to daughter, she was not diagnosed with it. 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 Pt denies any fever, chills, headache, ear pain , changes in hearing, or changes in vision. She denies any nausea, vomiting, diarrhea, or constipation. She denies any dysuria, hematuria, frequency, or urgency. She denies any chest pain, shortness, of breath, diaphoresis, or palpitations. Allergies: Influenza virus vaccine Past Surgical History: None reported Social History: Non smoker. No ETOH or drug use. <Keara Randolph - Last Filed: 03/12/17 18:21> <Martir Lawrence - Last Filed: 03/16/17 06:10> - General Chief Complaint: Lightheaded Stated Complaint: DIZZY Time Seen by Provider: 03/12/17 18:03 Past History <Keara Randolph - Last Filed: 03/12/17 18:21> - Past Medical History Anemia: No Asthma: Yes Cancer: No Cardiac Disorders: No CVA: No COPD: No CHF: No Dementia: No Diabetes: No GI Disorders: Yes (PATIENT WITH COUGH-NO SPECIFIC REFLUX) Disorders: No HTN: Yes Hypercholesterolemia: No Liver Disease: No Suicide Attempt (Hx): No Seizures: No Thyroid Disease: No - Surgical History Abdominal Surgery: No Appendectomy: No Cardiac Surgery: No Cholecystectomy: No Lung Surgery: No Neurologic Surgery: No Orthopedic Surgery: No - Psycho/Social/Smoking Cessation Hx Anxiety: No Suicidal Ideation: No Smoking Status: No Smoking History: Never smoked Have you smoked in the past 12 months: No Number of Cigarettes Smoked Daily: 0 Information on smoking cessation initiated: No Hx Alcohol Use: No Drug/Substance Use Hx: No Substance Use Type: None Hx Substance Use Treatment: No <Martir Lawrence - Last Filed: 03/16/17 06:10> - Past Medical History Allergies/Adverse Reactions: Allergies Allergy/AdvReac Type Severity Reaction Status Date / Time influenza virus vaccine, Allergy Severe Vomiting Verified 03/12/17 17:41 specific [influenza virus vacc,specific] Home Medications: Ambulatory Orders Loratadine [Claritin -] 10 mg PO DAILY 11/08/15 Omeprazole 20 mg PO DAILY tablet 11/27/16 Azithromycin [Zithromax 250mg Tablets -] 250 mg PO UTDICT #6 tab 03/12/17 Budesonide/Formeterol Fumarate [SYMBICORT 160/4.5mcg -] 1 inh PO BID 03/12/17 Gabapentin [Neurontin -] 100 mg PO DAILY 03/12/17 Meclizine HCl [Antivert -] 25 mg PO TID PRN #21 tablet 03/12/17 Meloxicam [Mobic] 7.5 mg PO DAILY 03/12/17 Review of Systems - Review of Systems Able to Perform ROS?: Yes Comments:: 03/12/17 18:21 GENERAL/CONSTITUTIONAL: No fever or chills. No weakness. HEAD, EYES, EARS, NOSE AND THROAT: No change in vision. No ear pain or discharge. No sore throat. CARDIOVASCULAR: No chest pain or shortness of breath. RESPIRATORY: Yes: +cough. No wheezing, or hemoptysis. GASTROINTESTINAL: No nausea, vomiting, diarrhea or constipation. GENITOURINARY: No dysuria, frequency, or change in urination. MUSCULOSKELETAL: No joint or muscle swelling or pain. No neck or back pain. SKIN: No rash NEUROLOGIC: Yes: +dizziness, +vertigo. No headache, loss of consciousness, or change in strength/sensation. ENDOCRINE: No increased thirst. No abnormal weight change. HEMATOLOGIC/LYMPHATIC: No anemia, easy bleeding, or history of blood clots. ALLERGIC/IMMUNOLOGIC: No hives or skin allergy. <Keara Randolph - Last Filed: 03/12/17 18:21> *Physical Exam - Vital Signs Last Vital Signs Temp Pulse Resp BP Pulse Ox 98.1 F 81 20 162/62 93 L 07/31/17 17:41 03/12/17 17:41 03/12/17 17:41 03/12/17 17:41 03/12/17 17:41 - Physical Exam Comments: 03/12/17 18:21 GENERAL: Awake, alert, and fully oriented, in no acute distress HEAD: No signs of trauma EYES: Nystagmus. PERRLA, sclera anicteric, conjunctiva clear ENT: Auricles normal inspection, hearing grossly normal, nares patent, oropharynx clear without exudates. Moist mucosa NECK: Normal ROM, supple, no lymphadenopathy, JVD, or masses LUNGS: Breath sounds equal, clear to auscultation bilaterally. No wheezes, and no crackles HEART: Regular rate and rhythm, normal S1 and S2, no murmurs, rubs or gallops ABDOMEN: Soft, nontender, normoactive bowel sounds. No guarding, no rebound. No masses EXTREMITIES: Normal range of motion, no edema. No clubbing or cyanosis. No cords, erythema, or tenderness NEUROLOGICAL: Cranial nerves II through XII grossly intact. Normal speech, normal gait SKIN: Warm, Dry, normal turgor, no rashes or lesions noted. <Keara Randolph - Last Filed: 03/12/17 18:21> - Vital Signs Last Vital Signs Temp Pulse Resp BP Pulse Ox 98.1 F 81 20 162/62 93 L 03/12/17 17:41 03/12/17 17:41 03/12/17 17:41 03/12/17 17:41 03/12/17 17:41 <Martir Lawrence - Last Filed: 03/16/17 06:10> *DC/Admit/Observation/Transfer - Attestations Scribe Attestion: 03/12/17 18:22 Documentation prepared by Keara Randolph, acting as vp medical for Martir Lawrence DO. <Keara Randolph - Last Filed: 03/12/17 18:21> - Attestations Physician Attestion: 03/16/17 06:10 I, Dr. Martir Lawrence, attest that this document has been prepared under my direction and personally reviewed by me in its entirety. I further attest, that it accurately reflects all work, treatment, procedures and medical decision -making performed by me. <Martir Lawrence - Last Filed: 03/16/17 06:10> Diagnosis at time of Disposition: Vertigo, Bronchitis - Discharge Dispostion Disposition: HOME Condition at time of disposition: Stable - Prescriptions Prescriptions: Meclizine HCl [Antivert -] 25 mg PO TID PRN #21 tablet PRN Reason: Vertigo Azithromycin [Zithromax 250mg Tablets -] 250 mg PO UTDICT #6 tab - Referrals Referrals: Huy Roy MD [Staff Physician] - 14 days - Patient Instructions Printed Discharge Instructions: DI for Vertigo Additional Instructions: continue meclizine as needed for vertigo begin Azithromycin; take as directed return to ER if you have worsening dizziness or cough followup with Dr Roy within 2 weeks followup for swallowing evaluation tomorrow as scheduled
[2017-03-12] MEDS ORDERED: MECLIZINE HCL 25 MG TABLET (FP) PO ONE (18:14)
--- NOTE | 2017-03-12 19:51 | PDOC ---
*Physical Exam - Vital Signs Last Vital Signs Temp Pulse Resp BP Pulse Ox 98.1 F 81 20 162/62 93 L 03/12/17 17:41 03/12/17 17:41 03/12/17 17:41 03/12/17 17:41 03/12/17 17:41 ED Treatment Course - Medications Given in the ED: ED Medications Discontinued Medications Generic Name Dose Route Start Last Admin Trade Name Freq PRN Reason Stop Dose Admin Meclizine HCl 25 mg 03/12/17 18:14 03/12/17 18:45 Antivert - PO 03/12/17 18:15 25 mg ONCE ONE Administration 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 - 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: Care of this patient received from Dr. Lawrence. Chest x-ray (interpreted by ) reveals bibasilar atelectasis; infiltrates could not be ruled out. Patient and her son interviewed. Cough has been present for many months without clear etiology. It may be somewhat more severe in the last few days; she denies shortness of breath/fever. Urinalysis shows no evidence of acute UTI or other abnormalities Patient will be discharged with a refill prescription for meclizine (25 mg up to 3 times a day as needed for vertigo) as well as prescription for azithromycin ([id number]). She should taper the azithromycin as prescribed. Patient should follow-up with her general medical doctor, Dr. Roy, within the next week and return to the ER if she has either severe vertigo or severe cough/ shortness of breath/high fever. *DC/Admit/Observation/Transfer Diagnosis at time of Disposition: Vertigo, Bronchitis - Discharge Dispostion Disposition: HOME Condition at time of disposition: Stable - Prescriptions Prescriptions: Meclizine HCl [Antivert -] 25 mg PO TID PRN #21 tablet PRN Reason: Vertigo Azithromycin [Zithromax 250mg Tablets -] 250 mg PO UTDICT #6 tab - Referrals Referrals: Huy Roy MD [Staff Physician] - 14 days - Patient Instructions Printed Discharge Instructions: DI for Vertigo Additional Instructions: continue meclizine as needed for vertigo begin Azithromycin; take as directed return to ER if you have worsening dizziness or cough followup with Dr Roy within 2 weeks followup for swallowing evaluation tomorrow as scheduled
[2017-03-12 20:09] LABS: URINE APPEARANCE Clear; URINE BILIRUBIN Negative (NEGATIVE); URINE GLUCOSE (UA) Negative (NEGATIVE); URINE KETONE Negative (NEGATIVE); URINE LEUK ESTERASE Negative (NEGATIVE); URINE NITRITE Negative (NEGATIVE); URINE PROTEIN Negative (NEGATIVE); URINE UROBILINOGEN 0.2 (0.2-1.0)
[2017-03-12 20:14] LABS: URINE BLOOD Trace-intact (NEGATIVE); URINE COLOR YELLOW
[2017-03-12 21:56] LABS: URINE RBC 0-2 /hpf (0-3); URINE WBC 0-1 (3-5)
[2017-03-12 21:57] LABS: URINE BACTERIA FEW /hpf (NEGATIVE)
== END 2017-03-12 20:55 | disposition home or self-care (01) ==
LOC: FER 17:40
DX: R42 Dizziness and giddiness (principal); J40 Bronchitis, not specified as acute or chronic; I10 Essential (primary) hypertension; J45.909 Unspecified asthma, uncomplicated; R05 Cough; K21.9 Gastro-esophageal reflux disease without esophagitis; Z88.8 Allergy status to other drugs, medicaments and biological substances
CPT/HCPCS: 71020-TC; 81003; 81015; 99282-25

== ENCOUNTER 2017-11-24 09:45 | Emergency (ER) | payer OTHER, MEDICARE ==
[2017-11-24 09:54] VITALS: BMI 26.9
--- NOTE | 2017-11-24 09:55 | PDOC ---
History of Present Illness - General Chief Complaint: Respiratory Stated Complaint: SOB, COUGH, "WAS WHEEZING" Time Seen by Provider: 11/24/17 09:48 - History of Present Illness Initial Comments: 11/24/17 09:55 82yo hungarian speaking female presents ambulatory from home c/o wheezing, sob, and a low pulse ox. Pt with a hx of asthma/copd. States the sob started this AM. States she checked her pulse ox and it was in the low 80s. States she used her albuterol and had some relief of the SOB, but not 100%. States she always has a cough, that is productive of white/clear sputum. No change in cough or sputum production. No cp. No fevers/chills. C/o mild epigastric pain - no radiation. No n/v/d. No dysuria. Last steroid pack was in September. Last hospital admission was last year. Pt denies LE swelling. Hx of vertigo and states she cannot lay flat. 11/24/17 10:00 PMHx: COPD/Asthma, HTN, Chronic back pain, HTN PSHx: cataract sx 2015, uterine lift Allergies: FLU vaccine Social: denies drugs, etoh, smoking Past History - Past Medical History Allergies/Adverse Reactions: Allergies Allergy/AdvReac Type Severity Reaction Status Date / Time influenza virus vaccine, Allergy Severe Vomiting Verified 11/24/17 09:50 specific [influenza virus vacc,specific] Home Medications: Ambulatory Orders Loratadine [Claritin -] 10 mg PO DAILY 11/08/15 Budesonide/Formeterol Fumarate [SYMBICORT 160/4.5mcg -] 1 inh PO BID 03/12/17 Gabapentin [Neurontin -] 100 mg PO DAILY 03/12/17 Meclizine HCl [Antivert -] 25 mg PO TID PRN #21 tablet 03/12/17 Meloxicam [Mobic] 7.5 mg PO DAILY 03/12/17 Azithromycin [Zithromax 250mg Tablets -] 250 mg PO UTDICT #6 tab 11/24/17 Famotidine 20 mg PO DAILY 11/24/17 Pantoprazole Sodium 40 mg PO DAILY 11/24/17 Prednisone [Deltasone] 40 mg PO DAILY #8 tablet 11/24/17 Anemia: No Asthma: Yes Cancer: No Cardiac Disorders: No CVA: No COPD: Yes CHF: No Dementia: No Diabetes: No GI Disorders: Yes Disorders: No HTN: Yes Hypercholesterolemia: No Liver Disease: No Seizures: No Thyroid Disease: No Other medical history: VERTIGO - Surgical History Abdominal Surgery: No Appendectomy: No Cardiac Surgery: No Cholecystectomy: No Lung Surgery: No Neurologic Surgery: No Orthopedic Surgery: No - Suicide/Smoking/Psychosocial Hx Smoking Status: No Smoking History: Never smoked Have you smoked in the past 12 months: No Number of Cigarettes Smoked Daily: 0 Hx Alcohol Use: No Drug/Substance Use Hx: No Substance Use Type: None Hx Substance Use Treatment: No Review of Systems - Review of Systems Able to Perform ROS?: Yes Comments:: 11/24/17 10:01 daughter at the bedside translating Is the patient limited Occitan proficient: Yes Constitutional: No: Chills, Fever HEENTM: No: Nose Congestion, Throat Pain, Throat Swelling Respiratory: Yes: Cough, Shortness of Breath, SOB with Exertion, SOB at Rest, Wheezing, Productive cough Cardiac (ROS): No: Chest Pain, Edema, Irregular Heart Rate, Chest Tightness ABD/GI: Yes: Abdominal cramping. No: Diarrhea, Nausea, Vomiting : No: Burning, Dysuria Musculoskeletal: No: Back Pain Integumentary: No: Rash Neurological: No: Headache, Numbness, Unsteady Gait All Other Systems: Reviewed and Negative *Physical Exam - Vital Signs Last Vital Signs Temp Pulse Resp BP Pulse Ox 97.5 F L 86 20 155/88 95 11/24/17 09:45 11/24/17 09:45 11/24/17 09:45 11/24/17 09:45 11/24/17 09:45 - Physical Exam General Appearance: Yes: Nourished, Appropriately Dressed. No: Apparent Distress HEENT: positive: EOMI, SALO, Normal Voice, Pharynx Normal. negative: Rhinorrhea Neck: positive: Trachea midline, Supple. negative: Rigid Respiratory/Chest: positive: Wheezing. negative: Chest Tender, Respiratory Distress, Accessory Muscle Use, Crackles, Rales, Rhonchi, Stridor Cardiovascular: positive: Regular Rhythm, Regular Rate, S1, S2. negative: Edema Gastrointestinal/Abdominal: positive: Normal Bowel Sounds, Tender (epigastric), Flat, Soft. negative: Guarding, Rebound Musculoskeletal: positive: Normal Inspection, Other (ambulatory with a steady gait). negative: CVA Tenderness Extremity: positive: Normal Capillary Refill, Normal Inspection, Normal Range of Motion. negative: Swelling, Calf Tenderness Integumentary: positive: Normal Color, Dry, Warm Neurologic: positive: talent scout II-XII NML intact, Fully Oriented, Alert, Normal Mood/ Affect, Normal Response, Motor Strength 5/5 Heart Score/ECG Review - ECG Intrepretation Comment:: 11/24/17 10:24 sinus at 93, poor r wave progression, L cuellar axis, q waves inferior leads that are age indeterminate, no acute st/t wave findings, unchanged from prior 12/27 ED Treatment Course - LABORATORY CBC & Chemistry Diagram: 11/24/17 10:00 11/24/17 10:00 Medical Decision Making - Medical Decision Making 11/24/17 10:04 a/p:P 82yo female with wheezing and sob this AM -suspect mild copd exacerbation -will check labs, ekg, cxr -will give neb, solumedrol, zantac for epigastric pain (hx of GERD) -will monitor and reassess -vital signs stable -speaking in full sentences -nontoxic in appearance 11/24/17 11:04 labs reviewed - normal wbc, negative trop 11/24/17 11:24 re-eval: lungs cta pulse ox 96% RA no resp distress poss early infiltrate on cxr - will start abx discussed the plan with the patient pt requesting to go home answered all questions. Discussed all reasons to return to the ED and need for follow up with her PMD. stable for d/c to home *DC/Admit/Observation/Transfer Diagnosis at time of Disposition: COPD (chronic obstructive pulmonary disease), Pneumonia, Shortness of breath - Discharge Dispostion Disposition: HOME Condition at time of disposition: Stable Admit: No - Prescriptions Prescriptions: Azithromycin [Zithromax 250mg Tablets -] 250 mg PO UTDICT #6 tab Prednisone [Deltasone] 40 mg PO DAILY #8 tablet - Referrals Referrals: Huy Roy MD [Primary Care Provider] - - Patient Instructions Printed Discharge Instructions: DI for Chronic Bronchitis, DI for Pneumonia -- Adult Additional Instructions: Please take all medications as prescribed. Please return to the ED with any further concerns or complaints. Please follow up with your PMD on Sunday. Please start the oral steroids tomorrow. Please start the antibiotics tomorrow. - Post Discharge Activity - Attestations Physician Attestion: 11/24/17 11:29 I, Dr. Karen Soto, DO, attest that this document has been prepared under my direction and personally reviewed by me in its entirety. I further attest, that it accurately reflects all work, treatment, procedures and medical decision -making performed by me.
[2017-11-24] MEDS ORDERED: ALBUTEROL SO4 2.5/IPRATROPIUM 0.5 INH SOL 3 ML VIAL.NEB. NEB ONE (09:57)
[2017-11-24] MEDS ORDERED: RANITIDINE HCL 150 MG TABLET (FP) PO ONE (09:57)
[2017-11-24] MEDS ORDERED: methylPREDNISolone NA SUCC 125 MG/2 ML VIAL IVPB ONE (09:57)
[2017-11-24] MEDS ORDERED: RANITIDINE HCL 150 MG TABLET (FP) ONE (10:06)
[2017-11-24] MEDS ORDERED: methylPREDNISolone NA SUCC 125 MG/2 ML VIAL ONE (10:06)
[2017-11-24] MEDS ORDERED: IPRATROPIUM BR 0.02% 0.5 MG/2.5 ML VIAL.NEB. NEB ONE (10:07)
[2017-11-24] MEDS ORDERED: ALBUTEROL SO4 0.083% IH SOL 2.5 MG/3 ML VIAL.NEB. NEB ONE (10:07)
[2017-11-24 10:11] LABS: BASO % 2.5 % (0-2.0); EOS % 1.2 % (0-4.5); HEMATOCRIT 39.9 % (32.4-45.2); HEMOGLOBIN 13.3 GM/dl (10.7-15.3); LYMPH % 13.6 % (8-40); MCHC 33.4 g/dl (32.0-36.0); MEAN PLT VOLUME 7.8 fl (7.5-11.1); MONO % 6.2 % (3.8-10.2); NEUT % 76.5 % (42.8-82.8); PLATELET COUNT 247 K/MM3 (134-434); RBC 4.43 M/mm3 (3.60-5.2); RDW 12.4 % (11.6-15.6); WHITE BLOOD COUNT 10.1 K/mm3 (4.0-10.8)
[2017-11-24 10:41] LABS: ALK PHOS 42 U/L (32-92); ANION GAP 6 (8-16); BILIRUBIN,TOTAL 0.7 mg/dl (0.2-1.0); BLOOD UREA NITROGEN 12 mg/dl (7-18); CALCIUM 8.9 mg/dl (8.4-10.2); CHLORIDE 101 mmol/L (98-107); CO2 32 mmol/L (22-28); CREATININE 0.6 mg/dl (0.6-1.3); GLUCOSE,RANDOM 107 mg/dl (74-106); POTASSIUM 4.1 mmol/L (3.5-5.1); SGOT/AST 19 U/L (10-42); SGPT/ALT 19 U/L (10-40); SODIUM 139 mmol/L (136-145)
[2017-11-24] MEDS ORDERED: AZITHROMYCIN 250 MG TABLET PO ONE (11:22)
[2017-11-24] MEDS ORDERED: AZITHROMYCIN 250 MG TABLET ONE (11:25)
[2017-11-24 11:40] VITALS: BP 145/79; PULSE 76; TEMP 97.8
[2017-11-24 12:43] LABS: LIPASE 105 U/L (73-393)
--- NOTE | 2017-11-26 12:34 | EKG ---
Test Reason : Blood Pressure : / mmHG Vent. Rate : 093 BPM Atrial Rate : 093 BPM P-R Int : 188 ms QRS Dur : 082 ms QT Int : 354 ms P-R-T Axes : 051 -06 028 degrees QTc Int : 440 ms NORMAL SINUS RHYTHM CANNOT RULE OUT INFERIOR INFARCT , AGE UNDETERMINED ABNORMAL ECG WHEN COMPARED WITH ECG OF 31-DEC-2016 12:08, NO SIGNIFICANT CHANGE WAS FOUND Confirmed by SANDRO MCKEON MD ([id number]) on 11/26/2017 12:33:36 PM Referred By: JESSICA NEFF Confirmed By:SANDRO MCKEON MD
== END 2017-11-24 11:35 | disposition home or self-care (01) ==
LOC: FER 09:45
PROC: 3E0337Z Introduction of Electrolytic and Water Balance Substance into Peripheral Vein, Percutaneous Approach (ICD-10-PCS; principal; 2017-11-24)
PROC: 3E033GC Introduction of Other Therapeutic Substance into Peripheral Vein, Percutaneous Approach (ICD-10-PCS; 2017-11-24)
DX: J44.9 Chronic obstructive pulmonary disease, unspecified (principal); J18.9 Pneumonia, unspecified organism; I10 Essential (primary) hypertension
CPT/HCPCS: 36415; 71046-TC-FY; 80053; 82550; 83690; 84484; 85025; 93005; 99284-25

== ENCOUNTER 2018-08-02 13:13 | Emergency (ER) | payer OTHER, MEDICARE ==
[2018-08-02 13:17] VITALS: TEMP 98.7; BMI 26.9
[2018-08-02] MEDS ORDERED: ALBUTEROL SO4 2.5/IPRATROPIUM 0.5 INH SOL 3 ML VIAL.NEB. NEB ONE ×4 (13:27→14:16)
[2018-08-02] MEDS ORDERED: predniSONE 20 MG TABLET (UD) PO ONE (13:32)
--- NOTE | 2018-08-02 13:33 | PDOC ---
History of Present Illness - General Chief Complaint: Lightheaded Stated Complaint: HEADACHE, DIZZY, SOB Time Seen by Provider: 08/02/18 13:15 History Source: Patient - History of Present Illness Initial Comments: 08/02/18 13:33 Patient is 83F with history of COPD/emphysema, HTN, chronic migraines, vertigo here today complaining of 1 day of cough and shortness of breath. Denies chest pain, fevers, chills, nausea, vomiting. Patient endorses dizziness with coughing , head movement, and sudden movement that is relieved with rest. No sick contacts. Did not get flu shot this year. Patient states that she has vocal cord swelling that makes her at higher risk for aspiration pneumonia. Patient endorses ear pain, no discharge. Ear pain and headache is improved from earlier. Past History - Past Medical History Allergies/Adverse Reactions: Allergies Allergy/AdvReac Type Severity Reaction Status Date / Time influenza virus vaccine, Allergy Severe Vomiting Verified 08/02/18 13:14 specific [influenza virus vacc,specific] Home Medications: Ambulatory Orders Budesonide/Formeterol Fumarate [SYMBICORT 160/4.5mcg -] 1 inh PO BID 03/12/17 Pantoprazole Sodium 40 mg PO DAILY 11/24/17 Azithromycin 250 mg PO DAILY #4 tablet 08/02/18 Divalproex *ER* [Depakote *ER* -] 750 mg PO DAILY 08/02/18 Prednisone [Prednisone 50 MG TABLETS] 50 mg PO DAILY #4 tablet 08/02/18 Anemia: No Asthma: Yes Cancer: No Cardiac Disorders: No CVA: No COPD: Yes CHF: No Dementia: No Diabetes: No GI Disorders: Yes Disorders: No HTN: Yes Hypercholesterolemia: No Liver Disease: No Seizures: No Thyroid Disease: No Other medical history: MIGRAINE HEADACHES, VERTIGO - Surgical History Abdominal Surgery: No Appendectomy: No Cardiac Surgery: No Cholecystectomy: No Lung Surgery: No Neurologic Surgery: No Orthopedic Surgery: No - Suicide/Smoking/Psychosocial Hx Smoking Status: No Smoking History: Never smoked Have you smoked in the past 12 months: No Number of Cigarettes Smoked Daily: 0 Information on smoking cessation initiated: No Hx Alcohol Use: No Drug/Substance Use Hx: No Substance Use Type: None Hx Substance Use Treatment: No Review of Systems - Review of Systems Able to Perform ROS?: Yes Comments:: 08/02/18 13:37 GENERAL/CONSTITUTIONAL: No fever or chills. No weakness. HEAD, EYES, EARS, NOSE AND THROAT: No change in vision. +R ear pain. No sore throat. CARDIOVASCULAR: No chest pain +shortness of breath RESPIRATORY: +cough, +wheezing, no hemoptysis. GASTROINTESTINAL: No nausea, vomiting, diarrhea or constipation. GENITOURINARY: No dysuria, frequency, or change in urination. SKIN: No rash NEUROLOGIC: +headache, +vertigo, no loss of consciousness, or change in strength /sensation. ENDOCRINE: No increased thirst. No abnormal weight change HEMATOLOGIC/LYMPHATIC: No anemia, easy bleeding, or history of blood clots. ALLERGIC/IMMUNOLOGIC: No hives or skin allergy. *Physical Exam - Vital Signs Last Vital Signs Temp Pulse Resp BP Pulse Ox 98.7 F 98 H 18 152/89 94 L 08/02/18 13:13 08/02/18 13:13 08/02/18 13:13 08/02/18 13:13 08/02/18 13:13 - Physical Exam Comments: 08/02/18 13:47 GENERAL: Awake, alert, and fully oriented, in no acute distress HEAD: No signs of trauma, normocephalic, atraumatic EYES: PERRLA, EOMI, sclera anicteric, conjunctiva clear ENT: Auricles normal inspection, hearing grossly normal, nares patent, oropharynx clear without exudates. Moist mucosa NECK: Normal ROM, supple, no lymphadenopathy, JVD, or masses LUNGS: No distress, speaks full sentences, scattered wheezes bilaterally HEART: Regular rate and rhythm, normal S1 and S2, no murmurs, rubs or gallops, peripheral pulses normal and equal bilaterally. ABDOMEN: Soft, nontender, normoactive bowel sounds. No guarding, no rebound. No masses EXTREMITIES: Normal inspection, Normal range of motion, no edema. No clubbing or cyanosis. NEUROLOGICAL: Cranial nerves II through XII grossly intact. Normal speech, normal gait, no focal sensorimotor deficits SKIN: Warm, Dry, normal turgor, no rashes or lesions noted. Moderate Sedation - Procedure Monitoring Vital Signs: Procedure Monitoring Vital Signs Temperature 98.7 F 08/02/18 13:13 Pulse Rate 98 H 08/02/18 13:13 Respiratory Rate 18 12/21/18 13:13 Blood Pressure 152/89 12/21/18 13:13 O2 Sat by Pulse Oximetry (%) 94 L 08/02/18 13:13 ED Treatment Course - LABORATORY CBC & Chemistry Diagram: 08/02/18 13:54 08/02/18 13:54 - RADIOLOGY Radiology Studies Ordered: Category Date Time Status CHEST PA & LAT [RAD] Stat Radiology 08/02/18 13:26 Ordered Medical Decision Making - Medical Decision Making 08/02/18 13:47 Patient is 83F with history of COPD, migraines, vertigo here today with cough, shortness of breath. Vitals normal and stable. DDx includes, but is not limited to: bronchitis, copd exacerbation, pneumonia, acs, arrhythmia. Suspect likely mild copd exacerbation with viral syndrome. EKG shows normal sinus rhythm with rate of 93. No st elevations/depressions. Normal axis. Normal intervals. Q waves in III and aVF. No significant t wave inversions. 08/02/18 14:48 CXR shows chronic disease. Patient's lungs now clear. No dizziness. Has PCP follow up. Will discharge to home with PCP follow up, prednisone, azithromycin. Return precautions given. *DC/Admit/Observation/Transfer Diagnosis at time of Disposition: Bronchitis, COPD (chronic obstructive pulmonary disease) - Discharge Dispostion Disposition: HOME Condition at time of disposition: Good Decision to Admit order: No - Prescriptions Prescriptions: Azithromycin 250 mg PO DAILY #4 tablet - Referrals Referrals: Huy Roy MD [Primary Care Provider] - - Patient Instructions Printed Discharge Instructions: DI for Acute Bronchitis Additional Instructions: Please call your primary care doctor today to set up a follow up appointment this week. Please return immediately if you have new, worsening or concerning symptoms, especially fever, increasing shortness of breath, and chest pain. - Post Discharge Activity
[2018-08-02] MEDS ORDERED: MECLIZINE HCL 25 MG TABLET (FP) PO ONE (13:36)
[2018-08-02] MEDS ORDERED: predniSONE 20 MG TABLET (UD) ONE (13:37)
--- NOTE | 2018-08-02 13:43 | PDOC ---
History of Present Illness - General Chief Complaint: Lightheaded Stated Complaint: HEADACHE, DIZZY, SOB Time Seen by Provider: 08/02/18 13:15 History Source: Patient Exam Limitations: No Limitations - History of Present Illness Initial Comments: 08/02/18 13:40 83 year old female with past medical history of COPD, hypertension, migraines, vertigo presents with cough and increasing difficulty breathing since yesterday. The patient developed intermittent clearish productive cough. No fevers or chills. Denies chest pain. States she's been using her albuterol at home. Has noticed that when she also turns her head, she becomes increasing more dizzy just like her previous vertigo. Reports mild right-sided earache. No sick contacts. Past History - Past Medical History Allergies/Adverse Reactions: Allergies Allergy/AdvReac Type Severity Reaction Status Date / Time influenza virus vaccine, Allergy Severe Vomiting Verified 08/02/18 13:14 specific [influenza virus vacc,specific] Home Medications: Ambulatory Orders Budesonide/Formeterol Fumarate [SYMBICORT 160/4.5mcg -] 1 inh PO BID 03/12/17 Pantoprazole Sodium 40 mg PO DAILY 11/24/17 Azithromycin 250 mg PO DAILY #4 tablet 08/02/18 Divalproex *ER* [Depakote *ER* -] 750 mg PO DAILY 08/02/18 Prednisone [Prednisone 50 MG TABLETS] 50 mg PO DAILY #4 tablet 08/02/18 Anemia: No Asthma: Yes Cancer: No Cardiac Disorders: No CVA: No COPD: Yes CHF: No Dementia: No Diabetes: No GI Disorders: Yes Disorders: No HTN: Yes Hypercholesterolemia: No Liver Disease: No Seizures: No Thyroid Disease: No Other medical history: MIGRAINE HEADACHES, VERTIGO - Surgical History Abdominal Surgery: No Appendectomy: No Cardiac Surgery: No Cholecystectomy: No Lung Surgery: No Neurologic Surgery: No Orthopedic Surgery: No - Suicide/Smoking/Psychosocial Hx Smoking Status: No Smoking History: Never smoked Have you smoked in the past 12 months: No Number of Cigarettes Smoked Daily: 0 Information on smoking cessation initiated: No Hx Alcohol Use: No Drug/Substance Use Hx: No Substance Use Type: None Hx Substance Use Treatment: No Review of Systems - Review of Systems Able to Perform ROS?: Yes Comments:: 08/02/18 13:43 GENERAL/CONSTITUTIONAL: [No fever or chills. No weakness. No weight change.] HEAD, EYES, EARS, NOSE AND THROAT: [No change in vision. No discharge. No sore throat.] + Right sided ear pain CARDIOVASCULAR: [No chest pain or shortness of breath.] RESPIRATORY: +SOB, +cough GASTROINTESTINAL: [No nausea, vomiting, diarrhea or constipation. No rectal bleeding.] GENITOURINARY: [No dysuria, frequency, or change in urination.] MUSCULOSKELETAL: [No joint or muscle swelling or pain. No neck or back pain.] SKIN AND BREASTS: [No rash or easy bruising.] NEUROLOGIC: [No headache, vertigo, loss of consciousness, or loss of sensation.] PSYCHIATRIC: [No depression or anxiety.] ENDOCRINE: [No increased thirst. No abnormal weight change.] HEMATOLOGIC/LYMPHATIC: [No anemia, easy bleeding, or history of blood clots.] ALLERGIC/IMMUNOLOGIC: [No hives or skin allergy. No latex allergy.] *Physical Exam - Vital Signs Last Vital Signs Temp Pulse Resp BP Pulse Ox 98.7 F 98 H 18 152/89 94 L 08/02/18 13:13 08/02/18 13:13 08/02/18 13:13 08/02/18 13:13 08/02/18 13:13 - Physical Exam Comments: 08/02/18 13:47 GENERAL: Awake, alert, and fully oriented, in no acute distress HEAD: No signs of trauma EYES: PERRLA, EOMI, sclera anicteric, conjunctiva clear ENT: Auricles normal inspection, hearing grossly normal, nares patent, oropharynx clear without exudates. Moist mucosa. TMs bilaterally clear NECK: Normal ROM, supple LUNGS: Tight breath sounds and feint bilateral expiratory wheezing. HEART: Regular rate and rhythm, normal S1 and S2, no murmurs, rubs or gallops ABDOMEN: Soft, nontender, normoactive bowel sounds. No guarding, no rebound. No masses EXTREMITIES: Normal range of motion, no edema. No clubbing or cyanosis. No cords, erythema, or tenderness NEUROLOGICAL: Cranial nerves II through XII grossly intact. Normal speech, normal gait SKIN: Warm, Dry, normal turgor, no rashes or lesions noted. Moderate Sedation - Procedure Monitoring Vital Signs: Procedure Monitoring Vital Signs Temperature 98.7 F 12/21/18 13:13 Pulse Rate 98 H 08/02/18 13:13 Respiratory Rate 18 08/02/18 13:13 Blood Pressure 152/89 08/02/18 13:13 O2 Sat by Pulse Oximetry (%) 94 L 08/02/18 13:13 Heart Score/ECG Review #1 ECG reviewed & interpreted by me at: 13:45 08/02/18 13:41 NSR 93, Q wave III, avF, normal axis, normal intervals, no std/unruly, QTC 437 msec ED Treatment Course - LABORATORY CBC & Chemistry Diagram: 08/02/18 13:54 08/02/18 13:54 Medical Decision Making - Medical Decision Making 08/02/18 13:47 Vital Signs Temp Pulse Resp BP Pulse Ox 98.7 F 98 H 18 152/89 94 L 08/02/18 13:13 08/02/18 13:13 08/02/18 13:13 08/02/18 13:13 08/02/18 13:13 I suspect the patient likely has bronchitis with mild COPD exacerbation. Patient is breathing comfortably and unlabored. However there are some faint wheezing. We'll give do a nabs and prednisone and reassess. Low threshold to initiate azithromycin. Rule out pneumonia with an x-ray. Patient's tympanic membrane demonstrate no erythema. Reassess. 08/02/18 14:50 CBC, BMP 08/02/18 13:54 08/02/18 13:54 CMP Sodium 138 mmol/L (136-145) 08/02/18 13:54 Potassium 4.4 mmol/L (3.5-5.1) 08/02/18 13:54 Chloride 102 mmol/L (98-107) 08/02/18 13:54 Carbon Dioxide 28 mmol/L (22-28) 08/02/18 13:54 Anion Gap 8 MMOL/L (8-16) 08/02/18 13:54 BUN 17 mg/dl (7-18) 08/02/18 13:54 Creatinine 0.5 mg/dl (0.6-1.3) L 08/02/18 13:54 Creat Clearance w eGFR > 60 (>60) 08/02/18 13:54 Random Glucose 109 mg/dl (74-106) H 08/02/18 13:54 Calcium 8.7 mg/dl (8.4-10.2) 08/02/18 13:54 Magnesium 2.0 mg/dL (1.8-2.4) 08/02/18 13:54 Total Bilirubin 0.4 mg/dl (0.2-1.0) 08/02/18 13:54 AST 19 U/L (10-42) 08/02/18 13:54 ALT 15 U/L (10-40) D 08/02/18 13:54 Alkaline Phosphatase 44 U/L (32-92) 08/02/18 13:54 Troponin I < 0.03 ng/ml (0.00-0.06) 08/02/18 13:54 Total Protein 6.7 g/dl (6.4-8.3) 08/02/18 13:54 Albumin 3.5 g/dl (3.5-5.0) 08/02/18 13:54 Chest xray reviewed by me, pending official radiology read. Unchanged from prior. No infiltrate. Pt feels better with prednisone and nebulizer. Will treat as mild COPD exacerbation with bronchitis. Will discharge with azithromycin and have patient follow up with PMD. *DC/Admit/Observation/Transfer Diagnosis at time of Disposition: Bronchitis COPD (chronic obstructive pulmonary disease) Qualifiers: COPD type: unspecified COPD Qualified Code(s): J44.9 - Chronic obstructive pulmonary disease, unspecified - Discharge Dispostion Disposition: HOME Condition at time of disposition: Good - Prescriptions Prescriptions: Azithromycin 250 mg PO DAILY #4 tablet Prednisone [Prednisone 50 MG TABLETS] 50 mg PO DAILY #4 tablet - Referrals Referrals: Huy Roy MD [Primary Care Provider] - - Patient Instructions Printed Discharge Instructions: DI for Acute Bronchitis Additional Instructions: Please call your primary care doctor today to set up a follow up appointment this week. Please return immediately if you have new, worsening or concerning symptoms, especially fever, increasing shortness of breath, and chest pain. - Post Discharge Activity
[2018-08-02] MEDS ORDERED: MECLIZINE HCL 25 MG TABLET (FP) ONE (14:04)
[2018-08-02 14:13] LABS: PLATELET COUNT 183 K/MM3 (134-434)
[2018-08-02 14:16] LABS: INR 1.13 (0.82-1.09); PROTHROMBIN TIME (PATIENT) 12.6 SEC (10.2-13.0)
[2018-08-02 14:19] LABS: HEMATOCRIT 38.1 % (32.4-45.2); HEMOGLOBIN 12.5 GM/dl (10.7-15.3); MCH 29.8 pg (25.7-33.7); MCHC 32.9 g/dl (32.0-36.0); MEAN CELL VOLUME 90.4 fl (80-96); MEAN PLT VOLUME 9.5 fl (7.5-11.1); RBC 4.21 M/mm3 (3.60-5.2); WHITE BLOOD COUNT 9.3 K/mm3 (4.0-10.8)
[2018-08-02 14:22] LABS: ALBUMIN 3.5 g/dl (3.5-5.0); ALK PHOS 44 U/L (32-92); ANION GAP 8 MMOL/L (8-16); BILIRUBIN,TOTAL 0.4 mg/dl (0.2-1.0); BLOOD UREA NITROGEN 17 mg/dl (7-18); CALCIUM 8.7 mg/dl (8.4-10.2); CHLORIDE 102 mmol/L (98-107); CO2 28 mmol/L (22-28); CREATININE 0.5 mg/dl (0.6-1.3); GLUCOSE,RANDOM 109 mg/dl (74-106); POTASSIUM 4.4 mmol/L (3.5-5.1); SGOT/AST 19 U/L (10-42); SGPT/ALT 15 U/L (10-40); SODIUM 138 mmol/L (136-145); TOT PROT 6.7 g/dl (6.4-8.3)
[2018-08-02 14:37] LABS: PLATELET ESTIMATE ADEQUATE
[2018-08-02] MEDS ORDERED: AZITHROMYCIN 500 MG TABLET PO ONE (14:45)
[2018-08-02] MEDS ORDERED: AZITHROMYCIN 250 MG TABLET ONE (14:53)
[2018-08-02 15:13] VITALS: BP 138/75; PULSE 87
== END 2018-08-02 15:15 | disposition home or self-care (01) ==
LOC: FER 13:13
PROC: 3E0F7GC Introduction of Other Therapeutic Substance into Respiratory Tract, Via Natural or Artificial Opening (ICD-10-PCS; principal; 2018-08-02)
DX: J40 Bronchitis, not specified as acute or chronic (principal); J44.9 Chronic obstructive pulmonary disease, unspecified
CPT/HCPCS: 36415; 71046-TC-FY; 80053; 83735; 84484; 85025; 85610; 87804; 99285-25

== ENCOUNTER 2018-12-12 08:21 | Emergency (ER) | payer OTHER, MEDICARE ==
[2018-12-12] MEDS ORDERED: ALBUTEROL SO4 2.5/IPRATROPIUM 0.5 INH SOL 3 ML VIAL.NEB. NEB ONE ×2 (08:32→08:41)
[2018-12-12 08:39] VITALS: PULSE 87; TEMP 97.6; BMI 26.9
--- NOTE | 2018-12-12 08:41 | PDOC ---
History of Present Illness - General Chief Complaint: Respiratory Stated Complaint: PERSISTANT COUGH FELT SHORT OF BREATH H/O COPD Time Seen by Provider: 12/12/18 08:24 History Source: Patient, Family Exam Limitations: Language Barrier (translation provided through daughter ) - History of Present Illness Initial Comments: 12/12/18 08:35 83y F hx of COPD (not O2 dependant), HTN, presents with complaint of sob/cough for a few days. pt has a chronic cough, however the past few days has been worse than usual with increased cough and feeling alittle sob when walking around. there is increased production of thick whitish sputum. Pt denies any cp , hemoptysis, orthopnea, nausea/vomiting, leg swelling/leg pain, efver/chills. no recent travel or known sick contacts. pt has been using her meds as prescribed. no associated lightheadedness/plapitations. PMD: Dr. Kirill Barreto: Dr. Avila Past History - Past Medical History Allergies/Adverse Reactions: Allergies Allergy/AdvReac Type Severity Reaction Status Date / Time influenza virus vaccine, Allergy Severe Vomiting Verified 08/02/18 13:14 specific [influenza virus vacc,specific] Home Medications: Ambulatory Orders Budesonide/Formeterol Fumarate [SYMBICORT 160/4.5mcg -] 1 inh PO BID 03/12/17 Pantoprazole Sodium 40 mg PO DAILY 11/24/17 Divalproex *ER* [Depakote *ER* -] 750 mg PO DAILY 08/02/18 Prednisone [Prednisone 50 MG TABLETS] 50 mg PO DAILY #4 tablet 08/02/18 Azithromycin [Zithromax 250mg Tablets -] 250 mg PO DAILY #6 tablet 12/12/18 Anemia: No Asthma: Yes Cancer: No Cardiac Disorders: No CVA: No COPD: Yes CHF: No Dementia: No Diabetes: No GI Disorders: Yes Disorders: No HTN: Yes Hypercholesterolemia: No Liver Disease: No Seizures: No Thyroid Disease: No - Surgical History Abdominal Surgery: No Appendectomy: No Cardiac Surgery: No Cholecystectomy: No Lung Surgery: No Neurologic Surgery: No Orthopedic Surgery: No - Suicide/Smoking/Psychosocial Hx Smoking Status: No Smoking History: Never smoked Have you smoked in the past 12 months: No Number of Cigarettes Smoked Daily: 0 Hx Alcohol Use: No Drug/Substance Use Hx: No Substance Use Type: None Hx Substance Use Treatment: No Review of Systems - Review of Systems Able to Perform ROS?: Yes Comments:: 12/12/18 08:39 Constitutional - no reported Fever, Chills, HEENT: no reported vision changes, sore throat Respiratory: + productive cough, sob, no reported hemoptysis Cardiac: no reported chest pain, palpitations, light headedness, leg swelling Abd/GI: no reported abd pain, nausea, vomiting, blood per rectum, melena, diarrhea : no reported dysuria, frequency, discharge Musculskelatal - no reported back pain, joint swelling skin - no reported bruising, erythema, rash neurological: no reported headache, numbness, focal weakness, tingling, ataxia, hematologic: no reported easy bruising, easy bleeding *Physical Exam - Physical Exam Comments: 12/12/18 08:44 GENERAL: The patient is awake, alert, Nontoxic - in no acute distress. HEAD: Normocephalic, atraumatic. EYES: extraocular movements intact, sclera anicteric, conjunctiva clear. ENT: Normal voice, Moist mucous membranes. NECK: Normal range of motion, supple, no jvd LUNGS: Breath sounds equal, clear to auscultation bilaterally. No wheezes, no rhonchi, no rales. no acute respiratory distress HEART: Regular rate and rhythm, normal S1 and S2 without murmur, rub or gallop. ABDOMEN: Soft, nontender, No guarding, no rebound. No CVA tenderness EXTREMITIES: Normal range of motion, trace symmetric edema wo calf tenderness, neg homans sign NEUROLOGICAL: No facial assymetry, Normal speech, moving all 4 ext spontaneousyl and symmetrically PSYCH: Normal mood, normal affect. SKIN: Warm, Dry, normal turgor, ED Treatment Course - RADIOLOGY Radiology Studies Ordered: Category Date Time Status CHEST PA & LAT [RAD] Stat Radiology 12/12/18 08:32 Ordered Medical Decision Making - Medical Decision Making 12/12/18 08:44 likely copd vs bronchitis no acute distress and clear lungs will obtain cxr to r/o infiltrative process duo neb pts sat was reassessed and ranged between 98-95% on RA ekg to screen for cardiac disease/arrythmiea 12/12/18 09:38 The patient's chest x-ray is negative the patient is currently asymptomatic. Patient was ambulated around the emergency department without any shortness of breath or dyspnea on exertion. Suspect bronchitis we'll treat the patient with azithromycin due to history of COPD. Return precautions were discussed I discussed the physical exam findings, ancillary test results and final diagnoses with the patient. I answered all of the patient's questions. The patient was satisfied with the care received and felt comfortable with the discharge plan and treatment plan. The patient will call their primary care physician within 24 hours to arrange follow-up and will return to the Emergency Department with any new, persistent or worsening symptoms. *DC/Admit/Observation/Transfer Diagnosis at time of Disposition: Bronchitis COPD (chronic obstructive pulmonary disease) Qualifiers: COPD type: chronic bronchitis Chronic bronchitis type: simple Qualified Code(s) : J41.0 - Simple chronic bronchitis - Discharge Dispostion Disposition: HOME Condition at time of disposition: Improved Decision to Admit order: No - Prescriptions Prescriptions: Azithromycin [Zithromax 250mg Tablets -] 250 mg PO DAILY #6 tablet - Referrals Referrals: Huy Roy MD [Primary Care Provider] - - Patient Instructions Printed Discharge Instructions: DI for Chronic Bronchitis Additional Instructions: Return to the emergency department immediately with ANY new, persistent or worsening symptoms. You MUST call and follow up with your doctor in 3-4 days for further evaluation of your symptoms. Results were discussed with you. Please make sure your doctor reviews the results of your emergency evaluation. If you had any xrays during your visit, it was read preliminarily by myself, a Radiologist will review it and if there are any additional findings we will call you. Print Language: [place] - Post Discharge Activity
[2018-12-12 09:39] VITALS: BP 143/81
--- NOTE | 2018-12-12 13:42 | EKG ---
Test Reason : Blood Pressure : / mmHG Vent. Rate : 088 BPM Atrial Rate : 088 BPM P-R Int : 188 ms QRS Dur : 088 ms QT Int : 370 ms P-R-T Axes : 061 -03 033 degrees QTc Int : 447 ms NORMAL SINUS RHYTHM CANNOT RULE OUT INFERIOR INFARCT (CITED ON OR BEFORE 24-NOV-2017) ABNORMAL ECG WHEN COMPARED WITH ECG OF 24-NOV-2017 10:13, NO SIGNIFICANT CHANGE WAS FOUND Confirmed by LUCI ASTORGA, DANIEL ([id number]) on 12/12/2018 1:42:37 PM Referred By: LIAM LITTLE Confirmed By:DANIEL VERMA MD
== END 2018-12-12 09:43 | disposition home or self-care (01) ==
LOC: FER 08:21
PROC: 3E0F7GC Introduction of Other Therapeutic Substance into Respiratory Tract, Via Natural or Artificial Opening (ICD-10-PCS; principal; 2018-12-12)
DX: J41.0 Simple chronic bronchitis (principal)
CPT/HCPCS: 71046-TC-FY; 93005; 99282-25

== ENCOUNTER 2019-01-26 15:04 | Inpatient (IN) | payer OTHER, MEDICARE ==
--- NOTE | 2019-01-26 15:19 | PDOC ---
History of Present Illness - General Chief Complaint: Pain Stated Complaint: FELL Time Seen by Provider: 01/26/19 15:06 - History of Present Illness Initial Comments: 01/26/19 15:32 83F with pmh of COPD and HTn presents to the Ed after fall in her home on her left hip. didn't hit her head, no LOC. Wasn't able to stand back up afterwards. She Isn't on any anticoagulant medication. Denies loss of sensation, nausea or vomiting. No neck pain. Left leg is shortened and externally rotated. PCP: Dr. Roy 01/26/19 15:41 Past History - Past Medical History Allergies/Adverse Reactions: Allergies Allergy/AdvReac Type Severity Reaction Status Date / Time influenza virus vaccine, Allergy Severe Vomiting Verified 08/02/18 13:14 specific [influenza virus vacc,specific] Home Medications: Ambulatory Orders Budesonide/Formeterol Fumarate [SYMBICORT 160/4.5mcg -] 1 inh PO BID 03/12/17 Pantoprazole Sodium 40 mg PO DAILY 11/24/17 Divalproex *ER* [Depakote *ER* -] 750 mg PO DAILY 08/02/18 Prednisone [Prednisone 50 MG TABLETS] 50 mg PO DAILY #4 tablet 08/02/18 Azithromycin [Zithromax 250mg Tablets -] 250 mg PO DAILY #6 tablet 12/12/18 Anemia: No Asthma: Yes Cancer: No Cardiac Disorders: No CVA: No COPD: Yes CHF: No Dementia: No Diabetes: No GI Disorders: Yes Disorders: No HTN: Yes Hypercholesterolemia: No Liver Disease: No Seizures: No Thyroid Disease: No - Surgical History Abdominal Surgery: No Appendectomy: No Cardiac Surgery: No Cholecystectomy: No Lung Surgery: No Neurologic Surgery: No Orthopedic Surgery: No - Suicide/Smoking/Psychosocial Hx Smoking Status: No Smoking History: Never smoked Have you smoked in the past 12 months: No Number of Cigarettes Smoked Daily: 0 Hx Alcohol Use: No Drug/Substance Use Hx: No Substance Use Type: None Hx Substance Use Treatment: No Review of Systems - Review of Systems Able to Perform ROS?: Yes Is the patient limited Belarusian proficient: No Constitutional: No: Symptoms Reported HEENTM: No: Symptoms Reported Respiratory: No: Symptoms reported Cardiac (ROS): No: Symptoms Reported ABD/GI: No: Symptoms Reported : No: Symptoms Reported Musculoskeletal: Yes: See HPI Integumentary: No: Symptoms Reported Neurological: No: Symptoms reported All Other Systems: Reviewed and Negative *Physical Exam - Physical Exam General Appearance: Yes: Nourished, Appropriately Dressed, Moderate Distress HEENT: positive: EOMI, SALO, Normal ENT Inspection Respiratory/Chest: positive: Lungs Clear, Normal Breath Sounds. negative: Chest Tender, Respiratory Distress Cardiovascular: positive: Regular Rhythm, Regular Rate, S1, S2 Gastrointestinal/Abdominal: positive: Normal Bowel Sounds, Flat, Soft. negative : Tender Extremity: positive: Other (Left leg shortened and externally rotated. Good pulse. No knee or femur tenderness. ) Integumentary: positive: Normal Color, Dry, Warm, Other (no hematoma) Neurologic: positive: Fully Oriented, Alert, Normal Mood/Affect, Respond to painful stimul. negative: Sensory Deficit ED Treatment Course - LABORATORY CBC & Chemistry Diagram: 01/26/19 16:20 01/26/19 16:20 Medical Decision Making - Medical Decision Making 01/26/19 15:43 83F s/p fall with likely left hip fracture. Will obtain xrays and provide pain relief. 01/26/19 16:25 Fracture of the left humerus neck. Consulted with Dr. Dumont's PA who will see the patient on Sunday morning, asked for NPO after midnight order. \ Archer placement ordered. Patient admitted to hospitalist. *DC/Admit/Observation/Transfer Diagnosis at time of Disposition: Closed left hip fracture - Discharge Dispostion Condition at time of disposition: Good Decision to Admit order: Yes - Referrals Referrals: Huy Roy MD [Primary Care Provider] - - Patient Instructions - Post Discharge Activity
[2019-01-26] MEDS ORDERED: morphine CARPU-JECT 2 MG/1 ML DISP.SYRIN IVPUSH ONE (15:30)
[2019-01-26] MEDS ORDERED: morphine SULFATE 4 MG/ML VIAL ONE (16:35)
[2019-01-26 16:44] LABS: HEMATOCRIT 43.2 % (32.4-45.2); HEMOGLOBIN 14.2 GM/dl (10.7-15.3); MCHC 32.9 g/dl (32.0-36.0); MEAN PLT VOLUME 9.8 fl (7.5-11.1); PLATELET COUNT 221 K/MM3 (134-434); RBC 4.74 M/mm3 (3.60-5.2); RDW 12.8 % (11.6-15.6)
--- NOTE | 2019-01-26 16:50 | PDOC ---
Attending Attestation - Resident Resident Name: Joaquim Fisher - ED Attending Attestation I have performed the following: I have examined & evaluated the patient, The case was reviewed & discussed with the resident, I agree w/resident's findings & plan, Exceptions are as noted - HPI HPI: 01/26/19 16:57 83yo F hx COPD, HTN presents to the ED with L hip pain after a fall 1 hour [employer] Pt was walking down the stairs when she missed the last step, twisting her L leg "awkwardly", then landing on her L hip The fall was witnessed by her son Pt did not hit her head or lose consciousness Denies pain elsewhere Was in her USOH prior to the fall, denies fevers, chills, cp, sob, headache, weakness, numbness, abd pain, N/V/D, urinary sxs Of note, pt takes steroids 3-4 times a week when she has SOB from her COPD. Denies current SOB. - Physicial Exam PE: 01/26/19 17:00 GENERAL: Awake, alert, and fully oriented, in no acute distress HEAD: No signs of trauma EYES: EOMI, sclera anicteric, conjunctiva clear ENT: Oropharynx clear without exudates. Moist mucosa NECK: Normal ROM, supple, no lymphadenopathy, JVD, or masses LUNGS: Breath sounds equal, clear to auscultation bilaterally. No wheezes, and no crackles HEART: Regular rate and rhythm, normal S1 and S2, no murmurs, rubs or gallops ABDOMEN: Soft, nontender, normoactive bowel sounds. No guarding, no rebound. No masses EXTREMITIES: LLE short and externally rotated. +ttp to the L hip. 2+ DP and TP pulses. WWP. No other deformities. NEUROLOGICAL: Normal speech, cranial nerves intact, negative pronator drift, 5/ 5 strength in b/l upper extremities and RLE, normal sensation to light touch in all 4 extremities, normal cerebellar exam, gait deferred SKIN: Warm, Dry, normal turgor, no rashes or lesions noted. - Medical Decision Making 01/26/19 16:45 83yo F hx COPD on steroids frequently, HTN presents to the ED with L hip pain O2 sat 90%-92% on 3L, likely 2/2 COPD. Pt's family reports her oxygen saturation is often low. CXR with stable bibasilar atelectasis similar to CXR from December 12, 2018 +femoral neck fracture on XR Labs wnl, UA wnl Spoke with RAMONA Small, pt will be seen by Dr. Minor/Tim in the AM Plan for IV morphine, slater. Case discussed with Dr. Townsend, pt accepted for admission Case discussed in detail with admitting physician including history, physical exam and ancillary studies. Admitting physician has assumed care for the patient, will follow all pending diagnostics and will complete the evaluation and treatment. *DC/Admit/Observation/Transfer Diagnosis at time of Disposition: Closed left hip fracture - Discharge Dispostion Condition at time of disposition: Good Decision to Admit order: Yes - Referrals - Patient Instructions - Post Discharge Activity - Attestations Physician Attestion: 01/26/19 16:50 I, Dr. Sandra Rodgers MD, attest that this document has been prepared under my direction and personally reviewed by me in its entirety. I further attest, that it accurately reflects all work, treatment, procedures and medical decision -making performed by me.
[2019-01-26 17:03] LABS: ACTIVATED PTT 23.6 SECONDS (25.2-36.5)
[2019-01-26 17:08] LABS: INR 1.05 (0.82-1.09); PROTHROMBIN TIME (PATIENT) 11.7 SEC (10.2-13.0)
[2019-01-26 17:19] LABS: PLATELET ESTIMATE ADEQUATE
[2019-01-26 17:31] LABS: ALBUMIN 3.8 g/dl (3.4-5.0); BILIRUBIN,TOTAL 0.8 mg/dl (0.2-1); CALCIUM 8.6 mg/dl (8.5-10); CREATININE 0.6 mg/dl (0.55-1.3); TOT PROT 6.9 g/dl (6.4-8.2)
[2019-01-26 18:42] LABS: EPITHELIAL CELLS FEW /hpf
--- NOTE | 2019-01-26 20:33 | HP ---
CHIEF COMPLAINT: left hip pain PCP: Dr. Roy HISTORY OF PRESENT ILLNESS: 83yo F s/p mechanical fall onto left hip earlier today in the afternoon. Pt was walking down the stairs when she missed the last step, twisting her L leg "awkwardly", then landing on her L hip. Witnessed by son - no head trauma, no LOC. ER course was notable for: (1) left hip xray (2) (3) Recent Travel: pt denies PAST MEDICAL HISTORY: COPD/asthma HTN GERD chronic back pain PAST SURGICAL HISTORY: cataract removal 2016 uterine lift over 50 years ago Social History: Smoking: pt denies Alcohol: pt denies Drugs: pt denies Family History: mom-ovarian ca sister- colon ca Allergies influenza virus vaccine, specific [influenza virus vacc,specific] Allergy ( Severe, Verified 08/02/18 13:14) Vomiting HOME MEDICATIONS: Home Medications Medication Instructions Recorded Budesonide/Formeterol Fumarate 1 inh PO BID 03/12/17 [SYMBICORT 160/4.5mcg -] Pantoprazole Sodium 40 mg PO DAILY 11/24/17 Divalproex *ER* [Depakote *ER* -] 750 mg PO HS 08/02/18 Sertraline HCl [Zoloft] 25 mg PO HS 01/26/19 REVIEW OF SYSTEMS CONSTITUTIONAL: Absent: fever, chills, diaphoresis, generalized weakness, malaise, loss of appetite, weight change HEENT: Absent: rhinorrhea, nasal congestion, throat pain, throat swelling, difficulty swallowing, mouth swelling, ear pain, eye pain, visual changes CARDIOVASCULAR: Absent: chest pain, syncope, palpitations, irregular heart rate, lightheadedness , peripheral edema RESPIRATORY: Absent: cough, shortness of breath, dyspnea with exertion, orthopnea, wheezing, stridor, hemoptysis GASTROINTESTINAL: Absent: abdominal pain, abdominal distension, nausea, vomiting, diarrhea, constipation, melena, hematochezia GENITOURINARY: Absent: dysuria, frequency, urgency, hesitancy, hematuria, flank pain, genital pain MUSCULOSKELETAL: Absent: joint swelling, back pain, neck pain present- myalgia, arthralgia, SKIN: Absent: rash, itching, pallor HEMATOLOGIC/IMMUNOLOGIC: Absent: easy bleeding, easy bruising, lymphadenopathy, frequent infections ENDOCRINE: Absent: unexplained weight gain, unexplained weight loss, heat intolerance, cold intolerance NEUROLOGIC: Absent: headache, focal weakness or paresthesias, dizziness, unsteady gait, seizure, mental status changes, bladder or bowel incontinence PSYCHIATRIC: Absent: anxiety, depression, suicidal or homicidal ideation, hallucinations. PHYSICAL EXAMINATION Vital Signs - 24 hr 01/26/19 01/26/19 01/26/19 15:05 15:20 18:51 Temperature 98.1 F 98.4 F Pulse Rate 86 104 H 88 Respiratory 18 20 Rate Blood Pressure 168/90 179/88 H O2 Sat by Pulse 90 L 94 L Oximetry (%) 01/26/19 19:54 Temperature Pulse Rate Respiratory 20 Rate Blood Pressure O2 Sat by Pulse 96 Oximetry (%) GENERAL: Awake, alert, and fully oriented, in no acute distress. HEAD: Normal with no signs of trauma. EYES: Pupils equal, round and reactive to light, extraocular movements intact, sclera anicteric, conjunctiva clear. No lid lag. EARS, NOSE, THROAT: Ears normal, nares patent, oropharynx clear without exudates. Moist mucous membranes. NECK: Normal range of motion, supple without lymphadenopathy, JVD, or masses. LUNGS: Breath sounds equal, clear to auscultation bilaterally. No wheezes, and no crackles. No accessory muscle use. HEART: Regular rate and rhythm, normal S1 and S2 without murmur, rub or gallop. ABDOMEN: Soft, nontender, not distended, normoactive bowel sounds, no guarding, no rebound, no masses. MUSCULOSKELETAL: Normal range of motion at all joints. No bony deformities or tenderness. No CVA tenderness. UPPER EXTREMITIES: 2+ pulses, warm, well-perfused. No cyanosis. No clubbing. No peripheral edema. LOWER EXTREMITIES: 2+ pulses, warm, well-perfused. left lower ext ext rotated NEUROLOGICAL: Cranial nerves II-XII intact. Normal speech. PSYCHIATRIC: Cooperative. Good eye contact. Appropriate mood and affect. SKIN: Warm, dry, normal turgor, no rashes or lesions noted, normal capillary refill. Laboratory Results - last 24 hr 01/26/19 01/26/19 01/26/19 16:20 16:20 16:20 WBC 13.0 H RBC 4.74 Hgb 14.2 Hct 43.2 MCV 91.0 MCH 30.0 MCHC 32.9 RDW 12.8 Plt Count 221 MPV 9.8 Absolute Neuts (auto) 12.0 Neutrophils % No Result Required. Neutrophils % (Manual) 89.0 H Lymphocytes % No Result Required. Lymphocytes % (Manual) 7.0 L Monocytes % (Manual) 3 L Eosinophils % (Manual) 1.0 Platelet Estimate Adequate PT with INR 11.7 INR 1.05 PTT (Actin FS) 23.6 L Sodium Cancelled Potassium Cancelled Chloride Cancelled Carbon Dioxide Cancelled Anion Gap Cancelled BUN Cancelled Creatinine Cancelled Est GFR (CKD-EPI)AfAm Cancelled Est GFR (CKD-EPI)NonAf Cancelled Random Glucose Cancelled Calcium Cancelled Total Bilirubin Cancelled AST Cancelled ALT Cancelled Alkaline Phosphatase Cancelled Total Protein Cancelled Albumin Cancelled Urine Color Urine Appearance Urine pH Urine Protein Urine Glucose (UA) Urine Ketones Urine Blood Urine Nitrite Urine Bilirubin Urine Urobilinogen Ur Leukocyte Esterase Urine RBC Urine WBC Ur Transition Epith Cell Blood Type Antibody Screen 01/26/19 01/26/19 01/26/19 16:20 16:30 17:00 WBC RBC Hgb Hct MCV MCH MCHC RDW Plt Count MPV Absolute Neuts (auto) Neutrophils % Neutrophils % (Manual) Lymphocytes % Lymphocytes % (Manual) Monocytes % (Manual) Eosinophils % (Manual) Platelet Estimate PT with INR INR PTT (Actin FS) Sodium 138 Potassium 4.0 Chloride 99 Carbon Dioxide 26 Anion Gap 13 BUN 17.0 Creatinine 0.6 Est GFR (CKD-EPI)AfAm 97.69 Est GFR (CKD-EPI)NonAf 84.29 Random Glucose 123 H Calcium 8.6 Total Bilirubin 0.8 AST 28 ALT 23 Alkaline Phosphatase 40 L Total Protein 6.9 Albumin 3.8 Urine Color Urine Appearance Urine pH Urine Protein Urine Glucose (UA) Urine Ketones Urine Blood Urine Nitrite Urine Bilirubin Urine Urobilinogen Ur Leukocyte Esterase Urine RBC Urine WBC Ur Transition Epith Cell Blood Type Cancelled Cancelled Antibody Screen Cancelled 01/26/19 01/26/19 01/26/19 17:00 17:05 18:15 WBC RBC Hgb Hct MCV MCH MCHC RDW Plt Count MPV Absolute Neuts (auto) Neutrophils % Neutrophils % (Manual) Lymphocytes % Lymphocytes % (Manual) Monocytes % (Manual) Eosinophils % (Manual) Platelet Estimate PT with INR INR PTT (Actin FS) Sodium Potassium Chloride Carbon Dioxide Anion Gap BUN Creatinine Est GFR (CKD-EPI)AfAm Est GFR (CKD-EPI)NonAf Random Glucose Calcium Total Bilirubin AST ALT Alkaline Phosphatase Total Protein Albumin Urine Color Yellow Urine Appearance Clear Urine pH 8.0 Urine Protein Negative Urine Glucose (UA) Negative Urine Ketones Trace Urine Blood Trace-intact Urine Nitrite Negative Urine Bilirubin Negative Urine Urobilinogen 0.2 Ur Leukocyte Esterase 1+ Urine RBC 2-5 Urine WBC 5-10 Ur Transition Epith Cell Few Blood Type A POSITIVE A POSITIVE Antibody Screen Negative imaging reviewed ekg showed old anterior-inferior ischemic changes ASSESSMENT/PLAN: #Left hip neck fracture - nondisplaced -admit to med/surg -bed rest -left leg immobilization -morphine IV for pain control -npo -ortho consult- Dr. Dumont -BGM q6hrs -DVT ppx -heparin sc -echo - old ischemic changes on ekg #COPD -symbicort bid -albuterol neb prn Visit type - Emergency Visit Emergency Visit: Yes ED Registration Date: 01/26/19 Care time: The patient presented to the Emergency Department on the above date and was hospitalized for further evaluation of their emergent condition. - New Patient This patient is new to me today: Yes Date on this admission: 01/26/19 - Critical Care Critical Care patient: No
[2019-01-26] MEDS ORDERED: ALBUTEROL SO4 0.083% IH SOL 2.5 MG/3 ML VIAL.NEB. NEB PRN (20:42)
[2019-01-26] MEDS: morphine CARPU-JECT 2 MG/1 ML DISP.SYRIN IVPUSH PRN (22:25)
[2019-01-26] MEDS: SERTRALINE HCL 25 MG TABLET (FP) PO SCH (22:27)
[2019-01-26] MEDS: HEPARIN NA (PORCINE) 5,000 UNITS/ML 1ML VIAL SQ SCH (22:28)
[2019-01-26] MEDS: BUDESONIDE/FORMETEROL FUMARATE 160/4.5 mcg INHALER IH SCH (22:28)
[2019-01-26] MEDS: DIVALPROEX NA *ER* EXTEND REL 250 MG TABLET.SA PO SCH (22:29)
[2019-01-26] MEDS ORDERED: SODIUM CHLORIDE 1,000 ML IV SCH (23:45)
--- NOTE | 2019-01-27 05:40 | PN ---
Physical Exam: SUBJECTIVE: Patient seen and examined at bedside. Pain in right hip, 7/10, just received morphine. Daughter present. OBJECTIVE: Vital Signs Period Temp Pulse Resp BP Sys/Carr Pulse Ox Last 24 Hr 98.1 F-98.4 F 86-106 18-20 133-179/68-90 90-99 GENERAL: The patient is awake, alert, and fully oriented. Appears uncomfortable. LUNGS: Anterior breath sounds equal, clear to auscultation bilaterally, no wheezes, no crackles, no accessory muscle use. HEART: Regular rate and rhythm, S1, S2 ABDOMEN: Soft, nontender, nondistended : Archer in place LLE: Shortened, externally rotated NEUROLOGICAL: Cranial nerves II through XII grossly intact. Normal speech, gait not observed. Laboratory Results - last 24 hr 01/26/19 01/26/19 01/26/19 16:20 16:20 16:20 WBC 13.0 H RBC 4.74 Hgb 14.2 Hct 43.2 MCV 91.0 MCH 30.0 MCHC 32.9 RDW 12.8 Plt Count 221 MPV 9.8 Absolute Neuts (auto) 12.0 Neutrophils % No Result Required. Neutrophils % (Manual) 89.0 H Lymphocytes % No Result Required. Lymphocytes % (Manual) 7.0 L Monocytes % (Manual) 3 L Eosinophils % (Manual) 1.0 Platelet Estimate Adequate PT with INR 11.7 INR 1.05 PTT (Actin FS) 23.6 L Sodium Cancelled Potassium Cancelled Chloride Cancelled Carbon Dioxide Cancelled Anion Gap Cancelled BUN Cancelled Creatinine Cancelled Est GFR (CKD-EPI)AfAm Cancelled Est GFR (CKD-EPI)NonAf Cancelled POC Glucometer Random Glucose Cancelled Calcium Cancelled Total Bilirubin Cancelled AST Cancelled ALT Cancelled Alkaline Phosphatase Cancelled Total Protein Cancelled Albumin Cancelled Urine Color Urine Appearance Urine pH Urine Protein Urine Glucose (UA) Urine Ketones Urine Blood Urine Nitrite Urine Bilirubin Urine Urobilinogen Ur Leukocyte Esterase Urine RBC Urine WBC Ur Transition Epith Cell Blood Type Antibody Screen 01/26/19 01/26/19 01/26/19 16:20 16:30 17:00 WBC RBC Hgb Hct MCV MCH MCHC RDW Plt Count MPV Absolute Neuts (auto) Neutrophils % Neutrophils % (Manual) Lymphocytes % Lymphocytes % (Manual) Monocytes % (Manual) Eosinophils % (Manual) Platelet Estimate PT with INR INR PTT (Actin FS) Sodium 138 Potassium 4.0 Chloride 99 Carbon Dioxide 26 Anion Gap 13 BUN 17.0 Creatinine 0.6 Est GFR (CKD-EPI)AfAm 97.69 Est GFR (CKD-EPI)NonAf 84.29 POC Glucometer Random Glucose 123 H Calcium 8.6 Total Bilirubin 0.8 AST 28 ALT 23 Alkaline Phosphatase 40 L Total Protein 6.9 Albumin 3.8 Urine Color Urine Appearance Urine pH Urine Protein Urine Glucose (UA) Urine Ketones Urine Blood Urine Nitrite Urine Bilirubin Urine Urobilinogen Ur Leukocyte Esterase Urine RBC Urine WBC Ur Transition Epith Cell Blood Type Cancelled Cancelled Antibody Screen Cancelled 01/26/19 01/26/19 01/26/19 17:00 17:05 18:15 WBC RBC Hgb Hct MCV MCH MCHC RDW Plt Count MPV Absolute Neuts (auto) Neutrophils % Neutrophils % (Manual) Lymphocytes % Lymphocytes % (Manual) Monocytes % (Manual) Eosinophils % (Manual) Platelet Estimate PT with INR INR PTT (Actin FS) Sodium Potassium Chloride Carbon Dioxide Anion Gap BUN Creatinine Est GFR (CKD-EPI)AfAm Est GFR (CKD-EPI)NonAf POC Glucometer Random Glucose Calcium Total Bilirubin AST ALT Alkaline Phosphatase Total Protein Albumin Urine Color Yellow Urine Appearance Clear Urine pH 8.0 Urine Protein Negative Urine Glucose (UA) Negative Urine Ketones Trace Urine Blood Trace-intact Urine Nitrite Negative Urine Bilirubin Negative Urine Urobilinogen 0.2 Ur Leukocyte Esterase 1+ Urine RBC 2-5 Urine WBC 5-10 Ur Transition Epith Cell Few Blood Type A POSITIVE A POSITIVE Antibody Screen Negative 01/26/19 20:56 WBC RBC Hgb Hct MCV MCH MCHC RDW Plt Count MPV Absolute Neuts (auto) Neutrophils % Neutrophils % (Manual) Lymphocytes % Lymphocytes % (Manual) Monocytes % (Manual) Eosinophils % (Manual) Platelet Estimate PT with INR INR PTT (Actin FS) Sodium Potassium Chloride Carbon Dioxide Anion Gap BUN Creatinine Est GFR (CKD-EPI)AfAm Est GFR (CKD-EPI)NonAf POC Glucometer 109 Random Glucose Calcium Total Bilirubin AST ALT Alkaline Phosphatase Total Protein Albumin Urine Color Urine Appearance Urine pH Urine Protein Urine Glucose (UA) Urine Ketones Urine Blood Urine Nitrite Urine Bilirubin Urine Urobilinogen Ur Leukocyte Esterase Urine RBC Urine WBC Ur Transition Epith Cell Blood Type Antibody Screen Active Medications Generic Name Dose Route Start Last Admin Trade Name Freq PRN Reason Stop Dose Admin Albuterol Sulfate 1 amp 01/26/19 20:42 Ventolin 0.083% Nebulizer Soln - NEB Q6H PRN SHORT OF BREATH/WHEEZING Amlodipine Besylate 2.5 mg 01/27/19 10:00 Norvasc - PO DAILY JOSELINE Budesonide/Formoterol Fumarate 2 puff 01/26/19 22:00 01/26/19 22:28 Symbicort 160/4.5mcg - IH 2 puff BID JOSELINE Administration Divalproex Sodium 750 mg 01/26/19 22:00 01/26/19 22:29 Depakote *Er* - PO 750 mg HS JOSELINE Administration Heparin Sodium (Porcine) 5,000 unit 01/26/19 22:00 01/26/19 22:28 Heparin - SQ 5,000 unit TID JOSELINE Administration Sodium Chloride 1,000 mls @ 50 mls/hr 01/26/19 23:45 Normal Saline - IV 01/27/19 23:45 ASDIR JOSELINE Morphine Sulfate 2 mg 01/26/19 20:33 01/26/19 22:25 Morphine Injection - IVPUSH 2 mg Q4H PRN Administration PAIN LEVEL 6-10 Pantoprazole Sodium 40 mg 01/27/19 10:00 Protonix - PO DAILY JOSELINE Sertraline HCl 25 mg 01/26/19 22:00 01/26/19 22:27 Zoloft - PO 25 mg HS JOSELINE Administration ASSESSMENT/PLAN 81 year-old female with a PMH significant for HTN, asthma/COPD, GERD, migraines , and chronic back pain. Admitted for left femoral neck fracture. Left femoral neck fracture --seen and evaluated by ortho, plan is for OR today or tomorrow --IV Tylenol q6h scheduled, morphine PRN; Zofran PRN Pyuria Leukocytosis --elevated WBC with 1+leuk and 5-10 WBCs --urine culture pending --start empiric ceftriaxone (day #1) Hypertension --BP elevated, tachycardic --increase amlodipine to 5mg daily and modify pain regimen as above Asthma/COPD --continue Symbicort, albuterol neb PRN GERD --Protonix Migraines --continue valproic acid, sertraline --valproic acid level in am FEN Fluids: D5NS@83mL/hr Electrolytes: replete as indicated Nutrition: NPO DVT prophylaxis: SCDs only, planned surgery Physical therapy Dispo: continues to require inpatient care. Full code. -- Visit type - Emergency Visit Emergency Visit: Yes ED Registration Date: 01/26/19 Care time: The patient presented to the Emergency Department on the above date and was hospitalized for further evaluation of their emergent condition. - New Patient This patient is new to me today: Yes Date on this admission: 01/27/19 - Critical Care Critical Care patient: No
[2019-01-27] MEDS: HEPARIN NA (PORCINE) 5,000 UNITS/ML 1ML VIAL SQ SCH (06:32)
[2019-01-27 07:53] LABS: HEMATOCRIT 37.9 % (32.4-45.2); HEMOGLOBIN 12.7 GM/dl (10.7-15.3); MCH 30.5 pg (25.7-33.7); MCHC 33.6 g/dl (32.0-36.0); MEAN CELL VOLUME 90.8 fl (80-96); MEAN PLT VOLUME 9.1 fl (7.5-11.1); PLATELET COUNT 195 K/MM3 (134-434); RBC 4.17 M/mm3 (3.60-5.2); RDW 12.1 % (11.6-15.6); WHITE BLOOD COUNT 13.2 K/mm3 (4.0-10.8)
[2019-01-27 07:54] LABS: CALCIUM 8.4 mg/dl (8.5-10); CREATININE 0.6 mg/dl (0.55-1.3); POTASSIUM 3.9 mmol/L (3.5-5.1)
--- NOTE | 2019-01-27 08:20 | CON.ORTH ---
Consult Reason for Consultation:: left hip fx - Past Medical History Cardio/Vascular: Yes: HTN Pulmonary: Yes: Asthma ...: No - Alcohol/Substance Use Hx Alcohol Use: No - Smoking History Smoking history: Never smoked Have you smoked in the past 12 months: No Aproximately how many cigarettes per day: 0 - Social History ADL: Family Assistance History of Recent Travel: No Home Medications - Allergies Allergies/Adverse Reactions: Allergies Allergy/AdvReac Type Severity Reaction Status Date / Time influenza virus vaccine, Allergy Severe Vomiting Verified 08/02/18 13:14 specific [influenza virus vacc,specific] - Home Medications Home Medications: Ambulatory Orders Budesonide/Formeterol Fumarate [SYMBICORT 160/4.5mcg -] 1 inh PO BID 03/12/17 Pantoprazole Sodium 40 mg PO DAILY 11/24/17 Divalproex *ER* [Depakote *ER* -] 750 mg PO HS 08/02/18 Sertraline HCl [Zoloft] 25 mg PO HS 01/26/19 Physical Exam for Ortho Vital Signs: Vital Signs Temperature 98.4 F 01/27/19 06:40 Pulse Rate 111 H 01/27/19 06:40 Respiratory Rate 18 01/27/19 06:40 Blood Pressure 157/71 01/27/19 06:40 O2 Sat by Pulse Oximetry (%) 94 L 01/27/19 06:40 Labs: CBC, BMP 01/27/19 07:03 01/27/19 07:03 INR, PTT INR 1.05 (0.82-1.09) 01/26/19 16:20 - Lower Extremity Hip: Yes: Left, Decreased ROM, Leg Externally Rotated, Leg Shortened, Pain, Swelling, Other (nvi) Imaging - Results X-ray: Report Reviewed, Image Reviewed Assessment/Plan 83F with pmh of COPD and HTn presented to the Ed after fall in her home on her left hip. No head trauma/LOC. Pt c/o pain in left hip. Xrays showed displaced femoral neck fx. a/p- left displaced femoral neck fx Risks and benefits were d/w pt in detail will call daughter to discuss as well OR for left hip lela wither this afternoon/tomorrow surgical clearance NPO d/w Dr. Minor
[2019-01-27] MEDS ORDERED: PT OWN MED DRAWER 7, Y5N ONE ×2 (09:07→21:14)
[2019-01-27] MEDS: morphine CARPU-JECT 2 MG/1 ML DISP.SYRIN IVPUSH PRN ×2 (09:26→13:08)
[2019-01-27] MEDS ORDERED: amLODIPine BESYLATE 2.5 MG TABLET (FP) PO SCH (10:00)
[2019-01-27] MEDS: PANTOPRAZOLE 40 MG TABLET (FP) PO SCH (10:16)
[2019-01-27] MEDS: BUDESONIDE/FORMETEROL FUMARATE 160/4.5 mcg INHALER IH SCH ×2 (10:16→21:17)
[2019-01-27] MEDS ORDERED: ONDANSETRON 4 MG/2 ML VIAL IVPUSH PRN ×2 (14:41→15:16)
[2019-01-27] MEDS ORDERED: amLODIPine BESYLATE 2.5 MG TABLET (FP) PO ONE (14:45)
[2019-01-27] MEDS: CEFTRIAXONE 1 G/50 ML PREMIX 50 ML IVPB SCH (14:47)
[2019-01-27] MEDS ORDERED: ceFAZolin SODIUM 1 GM VIAL ONE (14:50)
[2019-01-27] MEDS ORDERED: DEXTROSE 5%-NORMAL SALINE 1,000 ML IV SCH (15:00)
[2019-01-27] MEDS ORDERED: MAGNESIUM HYDROX 2400MG/30ML ORAL SUSPENSION 30 ML CUP PO PRN (15:16)
[2019-01-27] MEDS ORDERED: MAG HYDROX/AL HYDROX/SIMETH 30 ML UNIT-DOSE CUP PO PRN (15:16)
[2019-01-27] MEDS ORDERED: ALBUTEROL SO4 0.083% IH SOL 2.5 MG/3 ML VIAL.NEB. NEB ONE (15:16)
--- NOTE | 2019-01-27 15:18 | EKG ---
Test Reason : Blood Pressure : / mmHG Vent. Rate : 113 BPM Atrial Rate : 113 BPM P-R Int : 184 ms QRS Dur : 082 ms QT Int : 320 ms P-R-T Axes : 051 -18 035 degrees QTc Int : 438 ms SINUS TACHYCARDIA CANNOT RULE OUT INFERIOR INFARCT (CITED ON OR BEFORE 24-NOV-2017) CANNOT RULE OUT ANTERIOR INFARCT , AGE UNDETERMINED WITH POOR R PROGRESSION ABNORMAL ECG WHEN COMPARED WITH ECG OF 12-DEC-2018 09:06, VENT. RATE HAS INCREASED Confirmed by ARIANNA KATE MD ([id number]) on 01/27/2019 3:18:19 PM Referred By: Confirmed By:ARIANNA KATE MD
[2019-01-27] MEDS ORDERED: CEFAZOLIN 1 GM in DEXTROSE 5%-WATER - 50 ML IVPB SCH (15:30)
--- NOTE | 2019-01-27 15:37 | ECHO ---
Name: MAGALI SOLANO Exam:Adult Echocardiogram Study Date: 01/27/2019 01:48 PM Age: 83 yrs Reason For Study: old ischemic changes on ekg Height: 62 in Weight: 159 lb BSA: 1.7 m2 MMode/2D Measurements & Calculations IVSd: 1.2 cm Ao root diam: 2.8 cm LVIDd: 4.1 cm LA dimension: 2.7 cm LVIDs: 2.4 cm LVPWd: 1.2 cm EDV(Teich): 73.5 ml ESV(Teich): 19.3 ml Doppler Measurements & Calculations Ao V2 max: 168.5 cm/sec LV V1 max P.9 mmHg Ao max P.4 mmHg LV V1 max: 99.0 cm/sec TR max kb: 254.5 cm/sec PA V2 max: 111.2 cm/sec TR max P.9 mmHg PA max P.9 mmHg PI end-d kb: 82.4 cm/sec Procedure A complete two-dimensional transthoracic echocardiogram was performed (2D, M-mode, Doppler and color flow Doppler). Left Ventricle The left ventricle is normal in size. There is mild concentric left ventricular hypertrophy. Left jojo tricular systolic function is normal. Ejection Fraction = 60-65%. No regional wall motion abnormalities noted. Right Ventricle The right ventricle is normal size. The right ventricular systolic function is normal. Atria The left atrial size is normal. Right atrial size is normal. Mitral Valve The mitral valve is normal in structure and function. There is mild mitral regurgitation. Tricuspid Valve The tricuspid valve is normal in structure and function. No tricuspid regurgitation. Aortic Valve The aortic valve is normal in structure and function. Moderate aortic regurgitation. Pulmonic Valve The pulmonic valve is not well visualized. Great Vessels The aortic root is normal size. Pericardium/Pleura There is no pericardial effusion. Interpretation Summary The left ventricle is normal in size. There is mild concentric left ventricular hypertrophy. Left ventricular systolic function is normal. No regional wall motion abnormalities noted. Ejection Fraction = 60-65%. The right ventricular systolic function is normal. The left atrial size is normal. Right atrial size is normal. There is mild mitral regurgitation. Moderate aortic regurgitation. There is no pericardial effusion. Previous study is not available for comparison Waldo Hobson MD 01/27/2019 03:36 PM
--- NOTE | 2019-01-27 16:37 | PN ---
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 (short form) - Note 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: Pt was scheduled for a hip hemiarthroplasty. Upon arrival to PACU, patient was actively wheezing (as per daughter, albuterol was withheld on floors) with an SpO2 of mid to high 80s. After albuterol nebulizer treatment, SpO2 increased to 90-92%, but still with active wheezing bilaterally. Complicating the picture slightly was her Heparin 5000units SC TID dose, last at 730am. After speaking with surgeon, it was agreed that we should delay the surgery and consult pulmonology to see/optimize the patient prior to the procedure, given her active wheezing and SpO2 in the high 80s/low90s. She will be tentatively scheduled for surgery tomorrow, assuming an improvement in her condition.
[2019-01-27] MEDS: ACETAMINOPHEN 1000 MG/100 ML VIAL (NON FORMULARY) IVPB SCH ×2 (16:54→21:15)
[2019-01-27] MEDS ORDERED: ALBUTEROL SO4 0.083% IH SOL 2.5 MG/3 ML VIAL.NEB. NEB PRN (17:27)
[2019-01-27] MEDS ORDERED: FUROSEMIDE 40 MG/4 ML INJECTABLE VIAL IVPUSH ONE (17:30)
--- NOTE | 2019-01-27 17:37 | CON.PULM ---
Consult Consult Specialty:: PULMONARY Referred by:: SOLO Reason for Consultation:: COUGH/SOB/CHEST CONGESTION - History of Present Illness Chief Complaint: COUGH/CHEST CONGESTION History of Present Illness: 83 FEMALE S/P FALL W FEMUR FX NEEDS REPAIR. H/O COPD,CHRONIC COUGH,HTN, CHRONIC BACK PAIN AND GERD. ASKED TO EVAL 2/2 CHEST CONGESTION. - History Source History Provided By: Patient, Family Member, Medical Record Limitations to Obtaining History: Language Barrier - Past Medical History [employer]: No: Alzheimer's Cardio/Vascular: Yes: HTN. No: AFIB Pulmonary: Yes: Asthma, COPD Gastrointestinal: Yes: GERD Hepatobiliary: No: Cirrhosis Renal/: No: Renal Failure Reproductive: Yes: Postmenopausal ...: No Heme/Onc: No: Anemia Psych: No: Addictions Musculoskeletal: Yes: Chronic low back pain Endocrine: No: Diabetes Mellitus - Past Surgical History Additional Surgical History: UTERINE LIFT/CATARACT - Alcohol/Substance Use Hx Alcohol Use: No History of Substance Use: reports: None - Smoking History Smoking history: Never smoked Have you smoked in the past 12 months: No Aproximately how many cigarettes per day: 0 - Social History ADL: Family Assistance Place of : Other History of Recent Travel: No Home Medications - Allergies Allergies/Adverse Reactions: Allergies Allergy/AdvReac Type Severity Reaction Status Date / Time influenza virus vaccine, Allergy Severe Vomiting Verified 08/02/18 13:14 specific [influenza virus vacc,specific] - Home Medications Home Medications: Ambulatory Orders Budesonide/Formeterol Fumarate [SYMBICORT 160/4.5mcg -] 1 inh PO BID 03/12/17 Pantoprazole Sodium 40 mg PO DAILY 11/24/17 Divalproex *ER* [Depakote *ER* -] 750 mg PO HS 08/02/18 Sertraline HCl [Zoloft] 25 mg PO HS 01/26/19 Family Disease History - Family Disease History Family History: Unremarkable Review of Systems - Review of Systems Constitutional: denies: Fever Eyes: denies: Blurred Vision HENT: denies: Difficult Swallowing Neck: denies: Decreased ROM Cardiovascular: denies: Chest Pain Respiratory: reports: Cough, SOB on Exertion. denies: Hemoptysis Gastrointestinal: denies: Abdominal Pain Genitourinary: denies: Burning Musculoskeletal: reports: Joint Pain Physical Exam Vital Sings: Vital Signs Temperature 98.6 F 01/27/19 16:41 Pulse Rate 113 H 01/27/19 16:41 Respiratory Rate 18 01/27/19 16:41 Blood Pressure 142/65 01/27/19 16:41 O2 Sat by Pulse Oximetry (%) 96 01/27/19 16:40 Constitutional: Yes: Anxious Eyes: Yes: EOM Intact HENT: Yes: Normocephalic Neck: Yes: Trachea Midline Cardiovascular: Yes: Regular Rate and Rhythm, S1, S2 Respiratory: Yes: Rhonchi Gastrointestinal: Yes: Normal Bowel Sounds Extremities: Yes: External Rotation Neurological: Yes: Alert Labs: CBC, BMP 01/27/19 07:03 01/27/19 07:03 REST REVIEWED Imaging - Results Chest X-ray: Report Reviewed, Image Reviewed Other: Report Reviewed (ECHO) Problem List - Problems (1) Closed left hip fracture Code(s): S72.002A - FRACTURE OF UNSP PART OF NECK OF LEFT FEMUR, INIT (2) Shortness of breath Code(s): R06.02 - SHORTNESS OF BREATH (3) Asthma Code(s): J45.909 - UNSPECIFIED ASTHMA, UNCOMPLICATED (4) COPD (chronic obstructive pulmonary disease) Code(s): J44.9 - CHRONIC OBSTRUCTIVE PULMONARY DISEASE, UNSPECIFIED Qualifiers: COPD type: chronic bronchitis Chronic bronchitis type: simple Qualified Code(s): J41.0 - Simple chronic bronchitis Assessment/Plan CXR APPEARS WITH MILD VOLUME OVERLOAD SUPERIMPOSED UPON HER UNDERLYING BRONCHOSPASTIC DISEASE MECHANICAL FALL WITH LEFT HIP FX REQUIRES REPAIR HTN/GERD/COPD/CHRONIC COUGH/?CHRONIC ASPIRATION WILL REDUCE IV FLUIDS ONE DOSE 20 MG FUROSEMIDE BRONCHODILATORS/STEROIDS/O2 SUPPLEMENTATION WILL NEED TO BE RE-EVALUATED IN AM PRIOR TO ANY PLANNED SURGERY Leonarda JEFFRIES MD
[2019-01-27] MEDS: methylPREDNISolone NA SUCC 40 MG/1 ML VIAL IVPUSH SCH (18:21)
[2019-01-27] MEDS: ALBUTEROL SO4 2.5/IPRATROPIUM 0.5 INH SOL 3 ML VIAL.NEB. NEB SCH ×2 (18:21→21:16)
[2019-01-27] MEDS: DEXTROSE 5%-NORMAL SALINE 1,000 ML IV SCH (18:22)
[2019-01-27] MEDS ORDERED: ALBUTEROL SO4 2.5/IPRATROPIUM 0.5 INH SOL 3 ML VIAL.NEB. NEB SCH (20:00)
[2019-01-27] MEDS ORDERED: methylPREDNISolone NA SUCC 40 MG/1 ML VIAL IVPUSH SCH (21:00)
[2019-01-27] MEDS: SERTRALINE HCL 25 MG TABLET (FP) PO SCH (21:17)
[2019-01-27] MEDS: DIVALPROEX NA *ER* EXTEND REL 250 MG TABLET.SA PO SCH (21:17)
[2019-01-27] MEDS ORDERED: SENNOSIDES/DOCUSATE COMBO (SENNA PLUS) TABLET (UD) PO SCH (22:00)
[2019-01-28] MEDS: ALBUTEROL SO4 2.5/IPRATROPIUM 0.5 INH SOL 3 ML VIAL.NEB. NEB SCH ×6 (00:37→21:23)
[2019-01-28] MEDS: methylPREDNISolone NA SUCC 40 MG/1 ML VIAL IVPUSH SCH ×3 (01:22→18:10)
[2019-01-28] MEDS: ACETAMINOPHEN 1000 MG/100 ML VIAL (NON FORMULARY) IVPB SCH ×2 (02:15→09:16)
[2019-01-28] MEDS ORDERED: ASPIRIN 325 MG TABLET PO SCH (08:00)
[2019-01-28 08:23] LABS: ALBUMIN 3.1 g/dl (3.4-5.0); BILIRUBIN,TOTAL 0.6 mg/dl (0.2-1); CALCIUM 8.4 mg/dl (8.5-10); CREATININE 0.6 mg/dl (0.55-1.3); HEMATOCRIT 38.6 % (32.4-45.2); HEMOGLOBIN 12.6 GM/dl (10.7-15.3); MAGNESIUM 2.1 mg/dL (1.8-2.4); MCHC 32.7 g/dl (32.0-36.0); MEAN PLT VOLUME 9.4 fl (7.5-11.1); PLATELET COUNT 168 K/MM3 (134-434); POTASSIUM 3.8 mmol/L (3.5-5.1); RBC 4.19 M/mm3 (3.60-5.2); TOT PROT 6.3 g/dl (6.4-8.2); WHITE BLOOD COUNT 11.4 K/mm3 (4.0-10.8)
[2019-01-28] MEDS ORDERED: PT OWN MED DRAWER 7, Y5N ONE ×3 (09:03→21:17)
[2019-01-28] MEDS: CEFTRIAXONE 1 G/50 ML PREMIX 50 ML IVPB SCH (09:24)
[2019-01-28] MEDS: PANTOPRAZOLE 40 MG TABLET (FP) PO SCH (09:24)
[2019-01-28] MEDS: BUDESONIDE/FORMETEROL FUMARATE 160/4.5 mcg INHALER IH SCH ×2 (09:25→21:24)
[2019-01-28] MEDS ORDERED: amLODIPine BESYLATE 2.5 MG TABLET (FP) PO SCH (10:00)
[2019-01-28] MEDS ORDERED: MULTIVITAMINS (DAILY MVI) TABLET (FP) PO SCH (10:00)
--- NOTE | 2019-01-28 10:00 | PN ---
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, Physician History of Present Illness: PULMONARY ALERT,FEELING BETTER,-SOB,- CONGESTION,O2 SAT 92% ON RA - Current Medication List Current Medications: Active Medications Al Hydroxide/Mg Hydroxide (Mylanta Oral Suspension -) 30 ml PO Q4H PRN PRN Reason: DYSPEPSIA Albuterol Sulfate (Ventolin 0.083% Nebulizer Soln -) 1 amp NEB Q1H PRN PRN Reason: SHORT OF BREATH/WHEEZING Albuterol/Ipratropium (Duoneb -) 1 amp NEB Q4H [facility] Last Admin: 01/28/19 09:23 Dose: 1 amp Amlodipine Besylate (Norvasc -) 5 mg PO DAILY [facility] Last Admin: 01/28/19 09:20 Dose: 5 mg Budesonide/Formoterol Fumarate (Symbicort 160/4.5mcg -) 2 puff IH BID [facility] Last Admin: 01/28/19 09:25 Dose: 2 puff Divalproex Sodium (Depakote *Er* -) 750 mg PO HS [facility] Last Admin: 01/27/19 21:17 Dose: 750 mg Ceftriaxone Sodium (Ceftriaxone 1 Gm-D5w Bag) 50 mls @ 100 mls/hr IVPB DAILY [facility]; Protocol Last Admin: 01/28/19 09:24 Dose: 100 mls/hr Dextrose/Sodium Chloride (D5-Ns -) 1,000 mls @ 42 mls/hr IV ASDIR [facility] Last Admin: 01/27/19 18:22 Dose: 42 mls/hr Magnesium Hydroxide (Milk Of Magnesia -) 30 ml PO PRN PRN PRN Reason: CONSTIPATION Methylprednisolone Sodium Succinate (Solu-Medrol -) 40 mg IVPUSH Q8H-IV JOSELINE Last Admin: 01/28/19 09:24 Dose: 40 mg Morphine Sulfate (Morphine Injection -) 2 mg IVPUSH Q4H PRN PRN Reason: PAIN LEVEL 6-10 Last Admin: 01/27/19 13:08 Dose: 2 mg Ondansetron HCl (Zofran Injection) 4 mg IVPUSH Q4H PRN PRN Reason: NAUSEA AND/OR VOMITING Pantoprazole Sodium (Protonix -) 40 mg PO DAILY [facility] Last Admin: 01/28/19 09:24 Dose: Not Given Sertraline HCl (Zoloft -) 25 mg PO HS [facility] Last Admin: 01/27/19 21:17 Dose: 25 mg - Objective Vital Signs: Vital Signs Temperature 98.5 F 01/28/19 09:27 Pulse Rate 97 H 01/28/19 09:27 Respiratory Rate 18 01/28/19 09:27 Blood Pressure 143/63 01/28/19 09:27 O2 Sat by Pulse Oximetry (%) 97 01/28/19 08:42 Constitutional: Yes: Well Nourished, Calm Eyes: Yes: WNL HENT: Yes: WNL Neck: Yes: WNL Cardiovascular: Yes: Regular Rate and Rhythm, S1, S2 Respiratory: Yes: Rales (CRACKLES LEFT BASE( CHRONIC PER PTS DAUGHTER),- WHEEZES) Gastrointestinal: Yes: Normal Bowel Sounds, Soft Extremities: Yes: External Rotation Edema: No Labs: CBC, BMP 01/28/19 07:29 01/28/19 07:29 INR, PTT INR 1.05 (0.82-1.09) 01/26/19 16:20 Assessment/Plan Problem List - Problems (1) Closed left hip fracture Code(s): S72.002A - FRACTURE OF UNSP PART OF NECK OF LEFT FEMUR, INIT (2) Shortness of breath Code(s): R06.02 - SHORTNESS OF BREATH (3) Asthma Code(s): J45.909 - UNSPECIFIED ASTHMA, UNCOMPLICATED (4) COPD (chronic obstructive pulmonary disease) Code(s): J44.9 - CHRONIC OBSTRUCTIVE PULMONARY DISEASE, UNSPECIFIED Qualifiers: COPD type: chronic bronchitis Chronic bronchitis type: simple Qualified Code(s): J41.0 - Simple chronic bronchitis Assessment/Plan CXR APPEARS WITH MILD VOLUME OVERLOAD SUPERIMPOSED UPON HER UNDERLYING BRONCHOSPASTIC DISEASE MECHANICAL FALL WITH LEFT HIP FX REQUIRES REPAIR HTN GERD COPD/ CHRONIC COUGH ?CHRONIC ASPIRATION CONTINUE BRONCHODILATORS , GIVE STAT TREATMENT DATASTAGE ARCHITECT TO OR CONTINUE STEROIDS X 24HRS,GIVE STAT DOSE 40MG 0N CALL TO OR O2 SUPPLEMENTATION NO PULMONARY CONTRAINDICATIONS TO SURGERY AT THIS TIME INCENTIVE SPIROMETER POST-OP DR SOTO
[2019-01-28] MEDS ORDERED: ALBUTEROL SO4 2.5/IPRATROPIUM 0.5 INH SOL 3 ML VIAL.NEB. NEB SCH (10:15)
[2019-01-28] MEDS ORDERED: methylPREDNISolone NA SUCC 40 MG/1 ML VIAL IVPUSH SCH (10:15)
--- NOTE | 2019-01-28 12:22 | PN ---
Physical Exam: SUBJECTIVE: Patient seen and examined at bedside. Pain under better control. Daughter present. Waiting to be called to OR. OBJECTIVE: Vital Signs Period Temp Pulse Resp BP Sys/Carr Pulse Ox Last 24 Hr 97.5 F-98.7 F 96-113 18-20 131-164/47-77 94-97 GENERAL: The patient is awake, alert, and fully oriented. Appears comfortable. LUNGS: Anterior breath sounds equal, clear to auscultation bilaterally, no wheezes, no crackles, no accessory muscle use. HEART: Regular rate and rhythm, S1, S2 ABDOMEN: Soft, nontender, nondistended : Archer in place LLE: Shortened, externally rotated NEUROLOGICAL: Cranial nerves II through XII grossly intact. Normal speech, gait not observed. Laboratory Results - last 24 hr 01/28/19 01/28/19 01/28/19 07:29 07:29 07:29 WBC 11.4 H RBC 4.19 Hgb 12.6 Hct 38.6 MCV 92.0 MCH 30.0 MCHC 32.7 RDW 12.0 Plt Count 168 MPV 9.4 Absolute Neuts (auto) 10.8 Neutrophils % Pot Room Tapper Neutrophils % (Manual) 94.0 H* Lymphocytes % Pot Room Tapper Lymphocytes % (Manual) 4.0 L Monocytes % Pot Room Tapper Monocytes % (Manual) 2 L Eosinophils % Pot Room Tapper Basophils % Pot Room Tapper Sodium 142 Potassium 3.8 Chloride 102 Carbon Dioxide 28 Anion Gap 12 BUN 18.0 Creatinine 0.6 Est GFR (CKD-EPI)AfAm 97.69 Est GFR (CKD-EPI)NonAf 84.29 Random Glucose 184 H Calcium 8.4 L Magnesium 2.1 Total Bilirubin 0.6 AST 20 ALT 18 Alkaline Phosphatase 36 L Total Protein 6.3 L Albumin 3.1 L Valproic Acid 57.7 Active Medications Generic Name Dose Route Start Last Admin Trade Name Freq PRN Reason Stop Dose Admin Al Hydroxide/Mg Hydroxide 30 ml 01/27/19 15:16 Mylanta Oral Suspension - PO Q4H PRN DYSPEPSIA Albuterol Sulfate 1 amp 01/27/19 17:27 Ventolin 0.083% Nebulizer Soln - NEB Q1H PRN SHORT OF BREATH/WHEEZING Albuterol/Ipratropium 1 amp 01/27/19 17:30 01/28/19 09:23 Duoneb - NEB 1 amp Q4H JOSELINE Administration Albuterol/Ipratropium 1 amp 01/28/19 10:15 Duoneb - NEB 01/29/19 10:14 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 [facility] Amlodipine Besylate 5 mg 01/28/19 10:00 01/28/19 09:20 Norvasc - PO 5 mg DAILY JOSELINE Administration Budesonide/Formoterol Fumarate 2 puff 01/26/19 22:00 01/28/19 09:25 Symbicort 160/4.5mcg - IH 2 puff BID JOSELINE Administration Divalproex Sodium 750 mg 01/26/19 22:00 01/27/19 21:17 Depakote *Er* - PO 750 mg HS JOSELINE Administration Ceftriaxone Sodium 50 mls @ 100 mls/hr 01/27/19 14:45 01/28/19 09:24 Ceftriaxone 1 Gm-D5w Bag IVPB 100 mls/hr DAILY JOSELINE Administration Protocol Dextrose/Sodium Chloride 1,000 mls @ 42 mls/hr 01/27/19 17:30 01/27/19 18:22 D5-Ns - IV 42 mls/hr ASDIR JOSELINE Administration Magnesium Hydroxide 30 ml 01/27/19 15:16 Milk Of Magnesia - PO PRN PRN CONSTIPATION Methylprednisolone Sodium Succinate 40 mg 01/27/19 18:00 01/28/19 09:24 Solu-Medrol - IVPUSH 40 mg Q8H-IV JOSELINE Administration Methylprednisolone Sodium Succinate 40 mg 01/28/19 10:15 Solu-Medrol - IVPUSH 01/29/19 10:14 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 Admitted for left femoral neck fracture. Left femoral neck fracture Asthma/COPD --taken to OR yesterday but was wheezing, anesthesia requested pulmonary evaluation which was done --no wheezing on today's exam, satting 97% on 2L --continue duonebs q4h and electronic calibration technician to OR --continue Symbicort --continue solumedrol 40mg q8h and 40mg IVP electronic calibration technician to OR --IV Tylenol q6h scheduled, morphine PRN; Zofran PRN --waiting for OR call Pyuria Leukocytosis --WBC trending down, 1+leuk and 5-10 WBCs --continue ceftriaxone (day #2) Hypertension --BP under better control on increased amlodipine 5mg daily GERD --Protonix Migraines --continue valproic acid, level therapeutic --continue sertraline FEN Fluids: D5NS@42mL/hr Electrolytes: replete as indicated Nutrition: regular diet, thick liquids; NPO after midnight DVT prophylaxis: SCDs only, planned surgery Physical therapy Dispo: continues to require inpatient care. Full code. -- Visit type - Emergency Visit Emergency Visit: Yes ED Registration Date: 01/26/19 Care time: The patient presented to the Emergency Department on the above date and was hospitalized for further evaluation of their emergent condition. - New Patient This patient is new to me today: No - Critical Care Critical Care patient: No
[2019-01-28] MEDS ORDERED: ALBUTEROL SO4 2.5/IPRATROPIUM 0.5 INH SOL 3 ML VIAL.NEB. NEB ONE (12:45)
[2019-01-28] MEDS ORDERED: methylPREDNISolone NA SUCC 40 MG/1 ML VIAL IVPUSH ONE (12:45)
[2019-01-28] MEDS ORDERED: MUPIROCIN 2% TOPICAL OINTMENT 22 GM TUBE TP SCH (15:15)
[2019-01-28 16:22] VITALS: BMI 28.9
[2019-01-28] MEDS: DEXTROSE 5%-NORMAL SALINE 1,000 ML IV SCH (18:11)
[2019-01-28] MEDS: SERTRALINE HCL 25 MG TABLET (FP) PO SCH (21:23)
[2019-01-28] MEDS: DIVALPROEX NA *ER* EXTEND REL 250 MG TABLET.SA PO SCH (21:24)
[2019-01-29] MEDS: ALBUTEROL SO4 2.5/IPRATROPIUM 0.5 INH SOL 3 ML VIAL.NEB. NEB SCH ×6 (01:40→21:34)
[2019-01-29] MEDS: methylPREDNISolone NA SUCC 40 MG/1 ML VIAL IVPUSH SCH ×4 (01:40→17:22)
[2019-01-29] MEDS ORDERED: BUPIVACAINE HCL/PF 0.5% (5MG/ML) 10 ML VIAL ONE (07:17)
[2019-01-29] MEDS ORDERED: ePHEDrine SULFATE 50 MG/1 ML AMPULE ONE (07:21)
[2019-01-29] MEDS ORDERED: SUCCINYLCHOLINE CHLORIDE 200 MG/10 ML VIAL ONE (07:21)
[2019-01-29] MEDS ORDERED: PHENYLEPHRINE HCL 10 MG/1 ML SINGLE DOSE VIAL ONE (07:21)
--- NOTE | 2019-01-29 07:41 | PN ---
Physical Exam: SUBJECTIVE: Patient seen and examined. Going to OR this morning. OBJECTIVE: Vital Signs Period Temp Pulse Resp BP Sys/Carr Pulse Ox Last 24 Hr 98.0 F-98.5 F 97-120 18-20 143-171/63-87 94-97 GENERAL: The patient is awake, alert, and fully oriented. Appears comfortable. LUNGS: Anterior breath sounds equal, clear to auscultation bilaterally, no wheezes, no crackles, no accessory muscle use. HEART: Regular rate and rhythm, S1, S2 ABDOMEN: Soft, nontender, nondistended : Archer in place LLE: Shortened, externally rotated NEUROLOGICAL: Cranial nerves II through XII grossly intact. Normal speech, gait not observed. Laboratory Results - last 24 hr 01/28/19 01/28/19 01/28/19 07:29 07:29 07:29 WBC 11.4 H RBC 4.19 Hgb 12.6 Hct 38.6 MCV 92.0 MCH 30.0 MCHC 32.7 RDW 12.0 Plt Count 168 MPV 9.4 Absolute Neuts (auto) 10.8 Neutrophils % Subeditor Neutrophils % (Manual) 94.0 H* Lymphocytes % Subeditor Lymphocytes % (Manual) 4.0 L Monocytes % Subeditor Monocytes % (Manual) 2 L Eosinophils % Subeditor Basophils % Subeditor Sodium 142 Potassium 3.8 Chloride 102 Carbon Dioxide 28 Anion Gap 12 BUN 18.0 Creatinine 0.6 Est GFR (CKD-EPI)AfAm 97.69 Est GFR (CKD-EPI)NonAf 84.29 Random Glucose 184 H Calcium 8.4 L Magnesium 2.1 Total Bilirubin 0.6 AST 20 ALT 18 Alkaline Phosphatase 36 L Total Protein 6.3 L Albumin 3.1 L Valproic Acid 57.7 Active Medications Generic Name Dose Route Start Last Admin Trade Name Freq PRN Reason Stop Dose Admin Al Hydroxide/Mg Hydroxide 30 ml 01/27/19 15:16 Mylanta Oral Suspension - PO Q4H PRN DYSPEPSIA Albuterol Sulfate 1 amp 01/27/19 17:27 Ventolin 0.083% Nebulizer Soln - NEB Q1H PRN SHORT OF BREATH/WHEEZING Albuterol/Ipratropium 1 amp 01/27/19 17:30 01/29/19 06:56 Duoneb - NEB 1 amp Q4H JOSELINE Administration Albuterol/Ipratropium 1 amp 01/28/19 12:45 Duoneb - NEB 01/28/19 12:46 ONCE ONE Amlodipine Besylate 5 mg 01/28/19 10:00 01/28/19 09:20 Norvasc - PO 5 mg DAILY JOSELINE Administration Budesonide/Formoterol Fumarate 2 puff 01/26/19 22:00 01/28/19 21:24 Symbicort 160/4.5mcg - IH 2 puff BID JOSELINE Administration Divalproex Sodium 750 mg 01/26/19 22:00 01/28/19 21:24 Depakote *Er* - PO 750 mg HS JOSELINE Administration Ceftriaxone Sodium 50 mls @ 100 mls/hr 01/27/19 14:45 01/28/19 09:24 Ceftriaxone 1 Gm-D5w Bag IVPB 100 mls/hr DAILY JOSELINE Administration Protocol Dextrose/Sodium Chloride 1,000 mls @ 42 mls/hr 01/27/19 17:30 01/28/19 18:11 D5-Ns - IV 42 mls/hr ASDIR JOSELINE Administration Magnesium Hydroxide 30 ml 01/27/19 15:16 Milk Of Magnesia - PO PRN PRN CONSTIPATION Methylprednisolone Sodium Succinate 40 mg 01/27/19 18:00 01/29/19 06:57 Solu-Medrol - IVPUSH 40 mg Q8H-IV JOSELINE Administration Methylprednisolone Sodium Succinate 40 mg 01/28/19 12:45 Solu-Medrol - IVPUSH 01/28/19 12:46 ONCE ONE Morphine Sulfate 2 mg 01/26/19 20:33 01/27/19 13:08 Morphine Injection - IVPUSH 2 mg Q4H PRN Administration PAIN LEVEL 6-10 Mupirocin 1 applic 01/28/19 15:15 01/28/19 15:46 Bactroban 2% Ointment - TP 1 applic DAILY JOSELINE Administration Ondansetron HCl 4 mg 01/27/19 14:41 Zofran Injection IVPUSH Q4H PRN NAUSEA AND/OR VOMITING Pantoprazole Sodium 40 mg 01/27/19 10:00 01/28/19 09:24 Protonix - PO Not Given DAILY JOSELINE Sertraline HCl 25 mg 01/26/19 22:00 01/28/19 21:23 Zoloft - PO 25 mg HS JOSELINE Administration ASSESSMENT/PLAN: 81 year-old female with a PMH significant for HTN, asthma/COPD, GERD, migraines , and chronic back pain. Admitted for left femoral neck fracture. Left femoral neck fracture Asthma/COPD --taken to OR this morning --continue duonebs q4h --continue Symbicort --continue solumedrol 40mg q8h --IV Tylenol q6h scheduled, morphine PRN; Zofran PRN Pyuria Leukocytosis --WBC trending down, 1+leuk and 5-10 WBCs --urine culture negative --continue ceftriaxone (day #3- last dose) Hypertension --BP under better control on increased amlodipine 5mg daily GERD --Protonix Migraines --continue valproic acid, level therapeutic --continue sertraline FEN Fluids: D5NS@42mL/hr Electrolytes: replete as indicated Nutrition: regular diet, thick liquids DVT prophylaxis: SCDs only, planned surgery Physical therapy Dispo: continues to require inpatient care. Full code. -- Visit type - Emergency Visit Emergency Visit: Yes ED Registration Date: 01/26/19 Care time: The patient presented to the Emergency Department on the above date and was hospitalized for further evaluation of their emergent condition. - New Patient This patient is new to me today: No - Critical Care Critical Care patient: No
[2019-01-29] MEDS ORDERED: ceFAZolin SODIUM 1 GM VIAL ONE ×2 (07:43→08:25)
[2019-01-29] MEDS ORDERED: PROPOFOL 20 ML ONE (08:08)
[2019-01-29] MEDS ORDERED: ESMOLOL HCL 100,000 MCG/10 ML VIAL ONE (08:26)
[2019-01-29] MEDS ORDERED: VANCOMYCIN 1,000 MG VIAL (RESTRICTED TO ID ONLY) ONE ×2 (08:49→08:50)
--- NOTE | 2019-01-29 09:14 | OP ---
Operative Note - Note: Operative Date: 01/29/19 (beto) Pre-Operative Diagnosis: left femoral neck fx Operation: left hip hemiarthroplasty Post-Operative Diagnosis: Same as Pre-op Surgeon: Kem Dumont Customer Solutions Coordinator: Huy Small Anesthesiologist/TEMPORARY ADMINISTRATIVE ASSISTANT: Stephanie Mauro Anesthesia: Spinal, Local Specimens Removed: femoral head Estimated Blood Loss (mls): 50 Operative Report Dictated: Yes
[2019-01-29] MEDS ORDERED: ALBUTEROL SO4 2.5/IPRATROPIUM 0.5 INH SOL 3 ML VIAL.NEB. NEB ONE (09:39)
[2019-01-29] MEDS ORDERED: MAG HYDROX/AL HYDROX/SIMETH 30 ML UNIT-DOSE CUP PO PRN (09:39)
[2019-01-29] MEDS ORDERED: morphine CARPU-JECT 2 MG/1 ML DISP.SYRIN IVPUSH PRN (09:39)
[2019-01-29] MEDS ORDERED: methylPREDNISolone NA SUCC 40 MG/1 ML VIAL IVPUSH ONE (09:39)
[2019-01-29] MEDS ORDERED: MAGNESIUM HYDROX 2400MG/30ML ORAL SUSPENSION 30 ML CUP PO PRN (09:39)
[2019-01-29] MEDS ORDERED: ALBUTEROL SO4 0.083% IH SOL 2.5 MG/3 ML VIAL.NEB. NEB PRN (09:39)
[2019-01-29] MEDS ORDERED: ONDANSETRON 4 MG/2 ML VIAL IVPUSH PRN (09:39)
[2019-01-29] MEDS ORDERED: CEFTRIAXONE 1 G/50 ML PREMIX 50 ML IVPB SCH (10:00)
[2019-01-29] MEDS: DEXTROSE 5%-NORMAL SALINE 1,000 ML IV SCH ×2 (10:30→11:17)
[2019-01-29] MEDS: MUPIROCIN 2% TOPICAL OINTMENT 22 GM TUBE TP SCH (11:16)
[2019-01-29] MEDS: BUDESONIDE/FORMETEROL FUMARATE 160/4.5 mcg INHALER IH SCH ×2 (11:16→21:35)
[2019-01-29] MEDS: PANTOPRAZOLE 40 MG TABLET (FP) PO SCH (11:16)
[2019-01-29] MEDS: amLODIPine BESYLATE 5 MG TABLET (FP) PO SCH (11:16)
[2019-01-29 12:58] LABS: HEMATOCRIT 37.7 % (32.4-45.2); HEMOGLOBIN 12.3 GM/dl (10.7-15.3); MCH 29.9 pg (25.7-33.7); MCHC 32.7 g/dl (32.0-36.0); MEAN CELL VOLUME 91.4 fl (80-96); MEAN PLT VOLUME 9.7 fl (7.5-11.1); PLATELET COUNT 187 K/MM3 (134-434); RBC 4.13 M/mm3 (3.60-5.2); RDW 12.1 % (11.6-15.6); WHITE BLOOD COUNT 21.8 K/mm3 (4.0-10.8)
--- NOTE | 2019-01-29 13:03 | PN ---
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 (short form) - Note 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: PULMONARY POST-OP TODAY VSS/AFEBRILE AWAKE/ALERT ANICTERIC CHEST CLEAR S1S2 BS+ S/P LEFT HIP LARY-ARTHROPLASTY MEDS/NOTES REVIEWED PULMONARY STATUS STABLE POST-OP WOULD TAPER STEROIDS CONTINUE O2 CONTINUE BRONCHODILATORS DVT PROPHYLAXSIS Leonarda JEFFRIES MD Problem List - Problems (1) Closed left hip fracture Code(s): S72.002A - FRACTURE OF UNSP PART OF NECK OF LEFT FEMUR, INIT (2) Shortness of breath Code(s): R06.02 - SHORTNESS OF BREATH (3) Asthma Code(s): J45.909 - UNSPECIFIED ASTHMA, UNCOMPLICATED (4) COPD (chronic obstructive pulmonary disease) Code(s): J44.9 - CHRONIC OBSTRUCTIVE PULMONARY DISEASE, UNSPECIFIED Qualifiers: COPD type: chronic bronchitis Chronic bronchitis type: simple Qualified Code(s): J41.0 - Simple chronic bronchitis
[2019-01-29] MEDS ORDERED: ACETAMINOPHEN 1000 MG/100 ML VIAL (NON FORMULARY) IVPB ONE (15:00)
[2019-01-29] MEDS ORDERED: CEFAZOLIN 1 GM/D5W 1 GM/50 ML BAG IVPB SCH (16:00)
[2019-01-29] MEDS: CEFAZOLIN 1 GM/D5W 1 GM/50 ML BAG IVPB SCH ×2 (16:36→23:56)
[2019-01-29] MEDS ORDERED: PT OWN MED DRAWER 7, Y5N ONE (21:33)
[2019-01-29] MEDS: SERTRALINE HCL 25 MG TABLET (FP) PO SCH (21:34)
[2019-01-29] MEDS: DIVALPROEX NA *ER* EXTEND REL 250 MG TABLET.SA PO SCH (21:35)
[2019-01-30] MEDS: ALBUTEROL SO4 2.5/IPRATROPIUM 0.5 INH SOL 3 ML VIAL.NEB. NEB SCH ×6 (01:25→21:27)
[2019-01-30] MEDS: methylPREDNISolone NA SUCC 40 MG/1 ML VIAL IVPUSH SCH ×3 (01:25→17:53)
[2019-01-30 07:23] LABS: HEMATOCRIT 34.9 % (32.4-45.2); HEMOGLOBIN 11.8 GM/dl (10.7-15.3); MCH 30.8 pg (25.7-33.7); MCHC 33.8 g/dl (32.0-36.0); MEAN CELL VOLUME 91.2 fl (80-96); MEAN PLT VOLUME 9.3 fl (7.5-11.1); PLATELET COUNT 161 K/MM3 (134-434); RBC 3.83 M/mm3 (3.60-5.2)
[2019-01-30 07:36] LABS: CALCIUM 8.2 mg/dl (8.5-10); CREATININE 0.5 mg/dl (0.55-1.3); POTASSIUM 3.9 mmol/L (3.5-5.1)
[2019-01-30] MEDS ORDERED: amLODIPine BESYLATE 5 MG TABLET (FP) PO ONE (07:45)
[2019-01-30] MEDS: ASPIRIN 325 MG TABLET PO SCH (07:59)
[2019-01-30] MEDS ORDERED: ASPIRIN 325 MG TABLET PO SCH (08:00)
--- NOTE | 2019-01-30 08:34 | SPEC ---
DATE OF OPERATION: 01/29/2019 PREOPERATIVE DIAGNOSIS: Displaced left femoral neck fracture. POSTOPERATIVE DIAGNOSIS: Displaced left femoral neck fracture. PROCEDURE: Left hip hemiarthroplasty. SURGICAL ATTENDING: Kme Dumont MD TAXICAB DISPATCHER: RAMONA Mo ANESTHESIA: Regional and spinal. CLOSURE: A No. 5 Accolade II femoral stem with a standard 45 bipolar head, No. 1 Vicryl for capsule and fascia, 0 and 2-0 subcutaneous and 3-0 Monocryl subcuticular, with skin glue for skin. ESTIMATED BLOOD LOSS: Less than 100 mL. COMPLICATIONS: None. CONDITION: To recovery room in stable condition. DESCRIPTION OF OPERATIVE PROCEDURE: The patient was taken to the operating room on January 29, 2019. Spinal anesthesia was administered by the anesthesiologist. IV antibiotic was administered prophylactically prior to the case. The patient was placed in the lateral decubitus position with all prominences well padded. The left hip area was prepped and draped in the usual sterile fashion. A 10- to 12-cm longitudinal incision over the posterolateral aspect of the greater trochanter Hemostasis was achieved using Bovie cautery. Sharp dissection was carried down to the level of the fascia, which was opened the entire length of the incision. The fibers of the gluteus kareem were spread in the direction of origin, exposing the greater trochanter. A Charnley retractor was placed in this layer and care was taken not to injure the sciatic nerve. The short external rotators were detached from their insertion to the greater trochanter and peeled off the capsule. A T-capsulotomy was then performed with the "T" extending down to the level of the labrum but not cutting the labrum. The femoral head was removed from the acetabulum by use of a corkscrew. It was measured to decide the appropriate size of the acetabular component. A trial reduction with the appropriate size acetabulum achieved good suction fit. Next, our attention was directed to the femur. The proximal femur was prepared using a box chisel, serial broaches and awls until the appropriate size broach achieved a good fit and fill with the appropriate version. Trial reduction with the bipolar revealed excellent stability. It was stable at 90 degrees of flexion and marked adduction. There was a positive hang test, negative telescoping and good stability in external rotation and extension. The trial component was removed. A real Accolade II stem and bipolar were then malleted into place and cold welded together. The hip was then reduced. Range of motion, stability and limb lengths were as described previously. The incision was copiously irrigated with antibiotic. Vancomycin powder was then placed into the hip joint. The capsule was then closed using 0 Vicryl suture. The fascia was then closed using no. 1 Vicryl, 0 and 2-0 subcutaneous, and 3-0 Monocryl subcuticular with skin glue for the skin. A sterile pressure dressing was applied. The patient was placed in the supine position with bilateral SCDs and an abduction pillow, and x-rays revealed excellent position of the components. The patient was transferred to recovery in stable condition. There were no complications. Estimated blood loss was less than 100 mL. Katherine MONTES DE [id number]
--- NOTE | 2019-01-30 09:03 | PN ---
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 (short form) - Note 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: Ortho Pt seen and examined s/p left hip lela pod #1 Selected Entries 01/30/19 06:00 Temperature 98.8 F Pulse Rate 115 H Respiratory 18 Rate Blood Pressure 179/89 H Laboratory Tests 01/30/19 07:13 WBC 18.0 H Hgb 11.8 Hct 34.9 Plt Count 161 dressing c/d/i, calf soft, nt nvi a/p PT hip precautions dvt ppx pain control d/c planning
[2019-01-30] MEDS ORDERED: methylPREDNISolone NA SUCC 40 MG/1 ML VIAL IVPUSH SCH ×2 (10:00→15:00)
--- NOTE | 2019-01-30 10:49 | PN ---
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, Physician History of Present Illness: PULMONARY ALERT,POST -OP DAY 1,C/O INCREASED SOB,CHEST CONGESTION - Current Medication List Current Medications: Active Medications Al Hydroxide/Mg Hydroxide (Mylanta Oral Suspension -) 30 ml PO Q4H PRN PRN Reason: DYSPEPSIA Albuterol Sulfate (Ventolin 0.083% Nebulizer Soln -) 1 amp NEB Q1H PRN PRN Reason: SHORT OF BREATH/WHEEZING Albuterol/Ipratropium (Duoneb -) 1 amp NEB Q4H [facility] Last Admin: 01/30/19 09:02 Dose: 1 amp Amlodipine Besylate (Norvasc -) 5 mg PO DAILY [facility] Last Admin: 01/29/19 11:16 Dose: 5 mg Aspirin (Asa -) 325 mg PO DAILY@0800 [facility] Last Admin: 01/30/19 07:59 Dose: 325 mg Budesonide/Formoterol Fumarate (Symbicort 160/4.5mcg -) 2 puff IH BID [facility] Last Admin: 01/29/19 21:35 Dose: 2 puff Divalproex Sodium (Depakote *Er* -) 750 mg PO HS [facility] Last Admin: 01/29/19 21:35 Dose: 750 mg Dextrose/Sodium Chloride (D5-Ns -) 1,000 mls @ 42 mls/hr IV ASDIR [facility] Last Admin: 01/29/19 11:17 Dose: 42 mls/hr Magnesium Hydroxide (Milk Of Magnesia -) 30 ml PO PRN PRN PRN Reason: CONSTIPATION Methylprednisolone Sodium Succinate (Solu-Medrol -) 40 mg IVPUSH Q12H [facility] Morphine Sulfate (Morphine Injection -) 2 mg IVPUSH Q4H PRN PRN Reason: PAIN LEVEL 6-10 Last Admin: 01/29/19 14:12 Dose: 2 mg Mupirocin (Bactroban 2% Ointment -) 1 applic TP DAILY [facility] Last Admin: 01/29/19 11:16 Dose: 1 tube Ondansetron HCl (Zofran Injection) 4 mg IVPUSH Q4H PRN PRN Reason: NAUSEA AND/OR VOMITING Oxycodone HCl (Roxicodone -) 5 mg PO Q4H PRN PRN Reason: PAIN LEVEL 6-10 Pantoprazole Sodium (Protonix -) 40 mg PO DAILY [facility] Last Admin: 01/29/19 11:16 Dose: 40 mg Sertraline HCl (Zoloft -) 25 mg PO HS [facility] Last Admin: 01/29/19 21:34 Dose: 25 mg - Objective Vital Signs: Vital Signs Temperature 98.5 F 01/30/19 09:00 Pulse Rate 118 H 01/30/19 09:00 Respiratory Rate 20 01/30/19 09:00 Blood Pressure 157/20 L 01/30/19 09:00 O2 Sat by Pulse Oximetry (%) 93 L 01/30/19 02:00 Constitutional: Yes: Well Nourished, Calm Eyes: Yes: WNL HENT: Yes: WNL Neck: Yes: WNL Cardiovascular: Yes: Tachycardia, S1, S2 Respiratory: Yes: Rhonchi (SCATTERED EUGENE WHEEZES AND RHONCHI) Gastrointestinal: Yes: Normal Bowel Sounds, Soft Extremities: Yes: WNL Edema: No Labs: CBC, BMP 01/30/19 07:13 01/30/19 07:13 INR, PTT INR 1.05 (0.82-1.09) 01/26/19 16:20 Assessment/Plan Problem List - Problems (1) Closed left hip fracture Code(s): S72.002A - FRACTURE OF UNSP PART OF NECK OF LEFT FEMUR, INIT (2) Shortness of breath Code(s): R06.02 - SHORTNESS OF BREATH (3) Asthma Code(s): J45.909 - UNSPECIFIED ASTHMA, UNCOMPLICATED (4) COPD (chronic obstructive pulmonary disease) Code(s): J44.9 - CHRONIC OBSTRUCTIVE PULMONARY DISEASE, UNSPECIFIED Qualifiers: COPD type: chronic bronchitis Chronic bronchitis type: simple Qualified Code(s): J41.0 - Simple chronic bronchitis Assessment/Plan CXR APPEARS WITH MILD VOLUME OVERLOAD SUPERIMPOSED UPON HER UNDERLYING BRONCHOSPASTIC DISEASE MECHANICAL FALL WITH LEFT HIP FX S/P REPAIR POD 1 HTN GERD COPD CHRONIC COUGH ?CHRONIC ASPIRATION BRONCHODILATORS STEROIDS WILL INCREASE TO Q6H O2 SUPPLEMENTATION INCENTIVE SPIROMETER D-DIMER IF ELEVATED CHEST CTA STAT PORT CHEST X-RAY DVT PROPHYLAXIS DR SOTO
[2019-01-30] MEDS: oxyCODONE HCL 5 MG TABLET PO PRN ×2 (11:17→16:10)
[2019-01-30] MEDS: PANTOPRAZOLE 40 MG TABLET (FP) PO SCH (11:19)
[2019-01-30] MEDS: amLODIPine BESYLATE 5 MG TABLET (FP) PO SCH (11:20)
[2019-01-30] MEDS: BUDESONIDE/FORMETEROL FUMARATE 160/4.5 mcg INHALER IH SCH ×2 (11:33→21:49)
[2019-01-30] MEDS: MUPIROCIN 2% TOPICAL OINTMENT 22 GM TUBE TP SCH (11:34)
--- NOTE | 2019-01-30 13:20 | PN ---
Physical Exam: SUBJECTIVE: Patient seen and examined oob to chair. Daughter present. Patient states feels better, no longer feels SOB. Denies chest pain, palpitations. Left hip pain is better, pain well-managed. Has a headache, given Tylenol. OBJECTIVE: Vital Signs Period Temp Pulse Resp BP Sys/Carr Pulse Ox Last 24 Hr 98.1 F-98.9 F 114-121 18-20 147-179/20-89 93-96 GENERAL: The patient is awake, alert, and fully oriented. Appears comfortable. LUNGS: Bibasilar crackles R>L, diminished breath sounds HEART: Regular rate and rhythm, S1, S2 ABDOMEN: Soft, nontender, nondistended : Archer in place LLE: 2+ DP pulses, warm, well-perfused; left hip surgical dressing c/d/i, no surrounding erythema, warmth, fluctuance NEUROLOGICAL: Cranial nerves II through XII grossly intact. Normal speech, gait not observed. Laboratory Results - last 24 hr 01/29/19 01/30/19 01/30/19 12:23 07:13 07:13 WBC 18.0 H RBC 3.83 Hgb 11.8 Hct 34.9 MCV 91.2 MCH 30.8 MCHC 33.8 RDW 12.0 Plt Count 161 MPV 9.3 Neutrophils % (Manual) 94.0 H* Lymphocytes % (Manual) 1.0 L Monocytes % (Manual) 5 Sodium 143 Potassium 3.9 Chloride 106 Carbon Dioxide 29 Anion Gap 8 BUN 20.0 H Creatinine 0.5 L Est GFR (CKD-EPI)AfAm 103.73 Est GFR (CKD-EPI)NonAf 89.50 Random Glucose 167 H Calcium 8.2 L Active Medications Generic Name Dose Route Start Last Admin Trade Name Freq PRN Reason Stop Dose Admin Al Hydroxide/Mg Hydroxide 30 ml 01/29/19 09:39 Mylanta Oral Suspension - PO Q4H PRN DYSPEPSIA Albuterol Sulfate 1 amp 01/29/19 09:39 Ventolin 0.083% Nebulizer Soln - NEB Q1H PRN SHORT OF BREATH/WHEEZING Albuterol/Ipratropium 1 amp 01/29/19 13:30 01/30/19 12:37 Duoneb - NEB 1 amp Q4H JOSELINE Administration Amlodipine Besylate 5 mg 01/29/19 10:00 01/30/19 11:20 Norvasc - PO 5 mg DAILY JOSELINE Administration Aspirin 325 mg 01/30/19 08:00 01/30/19 07:59 Asa - PO 325 mg DAILY@0800 JOSELINE Administration Budesonide/Formoterol Fumarate 2 puff 01/29/19 10:00 01/30/19 11:33 Symbicort 160/4.5mcg - IH 2 puff BID JOSELINE Administration Divalproex Sodium 750 mg 01/29/19 22:00 01/29/19 21:35 Depakote *Er* - PO 750 mg HS JOSELINE Administration Dextrose/Sodium Chloride 1,000 mls @ 42 mls/hr 01/29/19 09:39 01/29/19 11:17 D5-Ns - IV 42 mls/hr ASDIR JOSELINE Administration Magnesium Hydroxide 30 ml 01/29/19 09:39 Milk Of Magnesia - PO PRN PRN CONSTIPATION Methylprednisolone Sodium Succinate 40 mg 01/30/19 12:00 01/30/19 12:39 Solu-Medrol - IVPUSH 40 mg Q6H JOSELINE Administration Morphine Sulfate 2 mg 01/29/19 09:39 01/29/19 14:12 Morphine Injection - IVPUSH 2 mg Q4H PRN Administration PAIN LEVEL 6-10 Mupirocin 1 applic 01/29/19 10:00 01/30/19 11:34 Bactroban 2% Ointment - TP 1 applic DAILY JOSELINE Administration Ondansetron HCl 4 mg 01/29/19 09:39 Zofran Injection IVPUSH Q4H PRN NAUSEA AND/OR VOMITING Oxycodone HCl 5 mg 01/29/19 14:37 01/30/19 11:17 Roxicodone - PO 5 mg Q4H PRN Administration PAIN LEVEL 6-10 Pantoprazole Sodium 40 mg 01/29/19 10:00 01/30/19 11:19 Protonix - PO 40 mg DAILY JOSELINE Administration Sertraline HCl 25 mg 01/29/19 22:00 01/29/19 21:34 Zoloft - PO 25 mg HS JOSELINE Administration ASSESSMENT/PLAN 81 year-old female with a PMH significant for HTN, asthma/COPD, GERD, migraines , and chronic back pain. Admitted for left femoral neck fracture. Left femoral neck fracture s/p left hip hemiarthroplasty 6/19 --POD #1 --perioperative antibiotics per surgery --pain management per surgery --ASA 325mg daily --protonix --bowel regimen --incentive spirometry Asthma/COPD --continue duonebs --continue Symbicort --continue solumedrol 40mg q8h --CTA pending --pulmonary following Pyuria --urine culture negative --received 2 doses of ceftriaxone empirically, and then 2 doses cefazolin aileen-operatively --no further antibiotics Hypertension --BP under better control on increased amlodipine 5mg daily GERD --Protonix Migraines --continue valproic acid, level therapeutic --continue sertraline FEN Fluids: PO intake adequate Electrolytes: replete as indicated Nutrition: regular diet, thick liquids DVT prophylaxis: OOB, ambulation, SCDs, TEDs, ASA 325mg daily Physical therapy Dispo: continues to require inpatient care. Full code. Visit type - Emergency Visit Emergency Visit: Yes ED Registration Date: 01/26/19 Care time: The patient presented to the Emergency Department on the above date and was hospitalized for further evaluation of their emergent condition. - New Patient This patient is new to me today: No - Critical Care Critical Care patient: No
[2019-01-30] MEDS ORDERED: ENOXAPARIN NA (PORCINE) 40 MG/0.4 ML DISP.SYRIN SQ SCH (15:00)
--- NOTE | 2019-01-30 15:45 | PN ---
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 (short form) - Note 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: 83F POD1 s/p hemiarthroplasty under spinal anesthetic. Pt has required treatment for her COPD, but is doing well. No anesthetic complications reported. Continue current regimen.
[2019-01-30] MEDS: DEXTROSE 5%-NORMAL SALINE 1,000 ML IV SCH (16:46)
[2019-01-30] MEDS ORDERED: PT OWN MED DRAWER 7, Y5N ONE (21:17)
[2019-01-30] MEDS: SERTRALINE HCL 25 MG TABLET (FP) PO SCH (21:30)
[2019-01-30] MEDS: DIVALPROEX NA *ER* EXTEND REL 250 MG TABLET.SA PO SCH (21:30)
[2019-01-31] MEDS: methylPREDNISolone NA SUCC 40 MG/1 ML VIAL IVPUSH SCH ×2 (00:54→05:31)
[2019-01-31] MEDS: ALBUTEROL SO4 2.5/IPRATROPIUM 0.5 INH SOL 3 ML VIAL.NEB. NEB SCH ×4 (01:11→15:03)
[2019-01-31 07:45] LABS: HEMATOCRIT 34.7 % (32.4-45.2); HEMOGLOBIN 11.7 GM/dl (10.7-15.3); MCH 30.8 pg (25.7-33.7); MCHC 33.7 g/dl (32.0-36.0); MEAN CELL VOLUME 91.3 fl (80-96); MEAN PLT VOLUME 9.6 fl (7.5-11.1); PLATELET COUNT 153 K/MM3 (134-434)
--- NOTE | 2019-01-31 08:25 | DS ---
Physical Exam: SUBJECTIVE: Patient seen and examined OBJECTIVE: Vital Signs Period Temp Pulse Resp BP Sys/Carr Pulse Ox Last 24 Hr 97.8 F-99.1 F 110-119 18-20 132-168/20-84 93-97 PHYSICAL EXAM GENERAL: The patient is awake, alert, and fully oriented, in no acute distress. HEAD: Normal with no signs of trauma. EYES: PERRL, extraocular movements intact, sclera anicteric, conjunctiva clear. ENT: Ears normal, nares patent, oropharynx clear without exudates, moist mucous membranes. NECK: Trachea midline, full range of motion, supple. LUNGS: Breath sounds equal, clear to auscultation bilaterally, no wheezes, no crackles, no accessory muscle use. HEART: Regular rate and rhythm, S1, S2 without murmur, rub or gallop. ABDOMEN: Soft, nontender, nondistended, normoactive bowel sounds, no guarding, no rebound, no hepatosplenomegaly, no masses. EXTREMITIES: 2+ pulses, warm, well-perfused, no edema. NEUROLOGICAL: Cranial nerves II through XII grossly intact. Normal speech, gait not observed. PSYCH: Normal mood, normal affect. SKIN: Warm, dry, normal turgor, no rashes or lesions noted. LABS Laboratory Results - last 24 hr 01/30/19 01/31/19 11:01 07:14 WBC 18.0 H RBC 3.80 Hgb 11.7 Hct 34.7 MCV 91.3 MCH 30.8 MCHC 33.7 RDW 12.0 Plt Count 153 MPV 9.6 D-Dimer [id number] H HOSPITAL COURSE: Date of Admission:01/26/19 Date of Discharge: 01/31/19 Discharge Summary Reason For Visit: CLOSED FRACTURE OF LEFT HIP Current Active Problems Closed left hip fracture (Acute) Condition: Good - Instructions - Home Medications Comprehensive Discharge Medication List: Ambulatory Orders Budesonide/Formeterol Fumarate [SYMBICORT 160/4.5mcg -] 1 inh PO BID 03/12/17 Pantoprazole Sodium 40 mg PO DAILY 11/24/17 Divalproex *ER* [Depakote *ER* -] 750 mg PO HS 08/02/18 Sertraline HCl [Zoloft] 25 mg PO HS 01/26/19
--- NOTE | 2019-01-31 09:20 | PN ---
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 (short form) - Note 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: Ortho Pt seen and examined s/p left hip lela pod #2 Selected Entries 01/31/19 05:00 Temperature 99.1 F Pulse Rate 116 H Respiratory 20 Rate Blood Pressure 168/84 Laboratory Tests 01/31/19 07:14 WBC 18.0 H Hgb 11.7 Hct 34.7 Plt Count 153 dressing c/d/i, calf soft, nt nvi a/p PT hip precautions dvt ppx pain control d/c planning
--- NOTE | 2019-01-31 09:31 | PN ---
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, Physician History of Present Illness: PULMOARY ALERT,LESS CONGESTED,CHEST CTA -PE,-INFILTRARES - Current Medication List Current Medications: Active Medications Al Hydroxide/Mg Hydroxide (Mylanta Oral Suspension -) 30 ml PO Q4H PRN PRN Reason: DYSPEPSIA Albuterol Sulfate (Ventolin 0.083% Nebulizer Soln -) 1 amp NEB Q1H PRN PRN Reason: SHORT OF BREATH/WHEEZING Albuterol/Ipratropium (Duoneb -) 1 amp NEB Q4H [facility] Last Admin: 01/31/19 05:31 Dose: 1 amp Amlodipine Besylate (Norvasc -) 5 mg PO DAILY [facility] Last Admin: 01/30/19 11:20 Dose: 5 mg Aspirin (Asa -) 325 mg PO DAILY@0800 [facility] Last Admin: 01/30/19 07:59 Dose: 325 mg Budesonide/Formoterol Fumarate (Symbicort 160/4.5mcg -) 2 puff IH BID [facility] Last Admin: 01/30/19 21:49 Dose: 2 puff Divalproex Sodium (Depakote *Er* -) 750 mg PO [facility] Last Admin: 01/30/19 21:30 Dose: 750 mg Magnesium Hydroxide (Milk Of Magnesia -) 30 ml PO PRN PRN PRN Reason: CONSTIPATION Methylprednisolone Sodium Succinate (Solu-Medrol -) 40 mg IVPUSH Q6H [facility] Last Admin: 01/31/19 05:31 Dose: 40 mg Mupirocin (Bactroban 2% Ointment -) 1 applic TP DAILY [facility] Last Admin: 01/30/19 11:34 Dose: 1 applic Ondansetron HCl (Zofran Injection) 4 mg IVPUSH Q4H PRN PRN Reason: NAUSEA AND/OR VOMITING Oxycodone HCl (Roxicodone -) 5 mg PO Q4H PRN PRN Reason: PAIN LEVEL 6-10 Last Admin: 01/30/19 16:10 Dose: 5 mg Pantoprazole Sodium (Protonix -) 40 mg PO DAILY [facility] Last Admin: 01/30/19 11:19 Dose: 40 mg Sertraline HCl (Zoloft -) 25 mg PO [facility] Last Admin: 01/30/19 21:30 Dose: 25 mg - Objective Vital Signs: Vital Signs Temperature 99.1 F 01/31/19 05:00 Pulse Rate 116 H 01/31/19 05:00 Respiratory Rate 20 01/31/19 05:00 Blood Pressure 168/84 01/31/19 05:00 O2 Sat by Pulse Oximetry (%) 95 01/31/19 05:00 Constitutional: Yes: Well Nourished, Calm Eyes: Yes: WNL HENT: Yes: WNL Neck: Yes: WNL Cardiovascular: Yes: Regular Rate and Rhythm, S1, S2 Respiratory: Yes: Rhonchi (LESS WHEEZES AND RHONCHI) Gastrointestinal: Yes: Normal Bowel Sounds, Soft Extremities: Yes: WNL Edema: No Labs: CBC, BMP 01/31/19 07:14 Assessment/Plan Problem List - Problems (1) Closed left hip fracture Code(s): S72.002A - FRACTURE OF UNSP PART OF NECK OF LEFT FEMUR, INIT (2) Shortness of breath Code(s): R06.02 - SHORTNESS OF BREATH (3) Asthma Code(s): J45.909 - UNSPECIFIED ASTHMA, UNCOMPLICATED (4) COPD (chronic obstructive pulmonary disease) Code(s): J44.9 - CHRONIC OBSTRUCTIVE PULMONARY DISEASE, UNSPECIFIED Qualifiers: COPD type: chronic bronchitis Chronic bronchitis type: simple Qualified Code(s): J41.0 - Simple chronic bronchitis Assessment/Plan CXR APPEARS WITH MILD VOLUME OVERLOAD SUPERIMPOSED UPON HER UNDERLYING BRONCHOSPASTIC DISEASE MECHANICAL FALL WITH LEFT HIP FX S/P REPAIR POD 1 HTN GERD COPD CHRONIC COUGH ?CHRONIC ASPIRATION BRONCHODILATORS CONTINUE STEROIDS O2 SUPPLEMENTATION INCENTIVE SPIROMETER DVT PROPHYLAXIS DR SOTO
[2019-01-31] MEDS: oxyCODONE HCL 5 MG TABLET PO PRN ×2 (10:14→15:03)
[2019-01-31] MEDS: PANTOPRAZOLE 40 MG TABLET (FP) PO SCH (10:15)
[2019-01-31] MEDS: amLODIPine BESYLATE 5 MG TABLET (FP) PO SCH (10:15)
[2019-01-31] MEDS: ASPIRIN 325 MG TABLET PO SCH (10:16)
[2019-01-31] MEDS: BUDESONIDE/FORMETEROL FUMARATE 160/4.5 mcg INHALER IH SCH (10:17)
--- NOTE | 2019-01-31 11:22 | DS ---
Physical Exam: SUBJECTIVE: Patient seen and examined oob to chair. Feels better, denies SOB. Pain is well-managed. Daughter present. Wants to go to [facility]. OBJECTIVE: Vital Signs Period Temp Pulse Resp BP Sys/Carr Pulse Ox Last 24 Hr 97.8 F-99.1 F 110-119 18-20 132-168/63-84 93-97 PHYSICAL EXAM GENERAL: The patient is awake, alert, and fully oriented. Appears comfortable. LUNGS: CTA HEART: Regular rate and rhythm, S1, S2 ABDOMEN: Soft, nontender, nondistended LLE: 2+ DP pulses, warm, well-perfused; left hip surgical dressing c/d/i, no surrounding erythema, warmth, fluctuance NEUROLOGICAL: Cranial nerves II through XII grossly intact. Normal speech, gait not observed. LABS Laboratory Results - last 24 hr 01/30/19 01/31/19 11:01 07:14 WBC 18.0 H RBC 3.80 Hgb 11.7 Hct 34.7 MCV 91.3 MCH 30.8 MCHC 33.7 RDW 12.0 Plt Count 153 MPV 9.6 D-Dimer 5312 H HOSPITAL COURSE: Date of Admission:01/26/19 Date of Discharge: 01/31/19 Pre hospital course 83 year-old female fell onto left hip earlier today in the afternoon. Pt was walking down the stairs when she missed the last step, twisting her L leg "awkwardly", then landing on her L hip. Witnessed by son - no head trauma, no LOC. Subsequent hospital course Left femoral neck fracture s/p left hip hemiarthroplasty 01/29 --POD #5 --perioperative antibiotics per surgery --pain management per surgery --ASA 325mg daily --protonix --bowel regimen --incentive spirometry Asthma/COPD --treated with IV steroids, duonebs, Symbicort --01/30 CTA: negative for PE; bilateral upper and lower field atelectasis; no infiltrate or pleural effusion Pyuria --urine culture negative --received 2 doses of ceftriaxone empirically, and then 2 doses cefazolin aileen-operatively --no further antibiotics Hypertension --BP under better control on increased amlodipine 5mg daily GERD --Protonix Migraines --continued valproic acid, level therapeutic --continued sertraline Minutes to complete discharge: 35 Discharge Summary Reason For Visit: CLOSED FRACTURE OF LEFT HIP Current Active Problems Closed left hip fracture (Acute) Condition: Improved - Instructions Diet, Activity, Other Instructions: Post-op Instructions-Total Hip Replacement Call the office for a follow-up appointment in 1 week - [phone] Aspirin 325mg daily for 6 weeks. Apply Graduated Compression Stockings (TEDs) to both lower extremities- remove daily for hygiene ONLY Apply Sequential Compression Device (SCDs) to both Lower extremities remove for PT and hygiene ONLY Apply cold packs to affected area for 15 minutes every 2 hours. Physical Therapist will come to your home for the first 5 days. You will be set up with outpatient PT at your first post-operative visit. Patient may ambulate as tolerated-encourage self care (at least every 2-3 hours while awake) with walker or cane Maintain Aquacel (waterproof) dressing to operative wound (will be removed by surgeon at first office visit) Shower with Aquacel dressing in place-if Aquacel integrity compromised, remove and apply dry sterile dressing and notify Orthopedist. DO NOT SHOWER unless Orthopedists approves without Aquacel dressing CONTACT THE OFFICE FOR ANY CHANGE IN YOUR CONDITION (for example-fever greater than 102 degrees, excessive bleeding from operative site, purulent drainage, severe swelling or pain) GO TO THE EMERGENCY ROOM IF THERE IS A MEDICAL EMERGENCY Hip Precautions: * Keep a rolled towel under affected heel while in bed or chair (to keep knee in extension) * Dependent upon approach: * Posterior - do not cross legs; do not sit on low chairs or toilets. * If you have any questions, please do not hesitate to call the office - [phone]. Patient is being discharged to your facility on prednisone PO 20mg, 3 pills Sat & Sun; 2 pills Mon & Tues; 1 pill Wed & Thurs; 1/2 pill Fri & Sat She is to be on aspirin 325mg daily x 6 weeks post-surgery. Referrals: Kem Dumont MD [Staff Physician] - Disposition: RETIREMENT FACILITY - Home Medications Comprehensive Discharge Medication List: Ambulatory Orders Budesonide/Formeterol Fumarate [SYMBICORT 160/4.5mcg -] 1 inh PO BID 03/12/17 Pantoprazole Sodium 40 mg PO DAILY 11/24/17 Divalproex *ER* [Depakote *ER* -] 750 mg PO HS 08/02/18 Sertraline HCl [Zoloft] 25 mg PO HS 01/26/19 This patient is new to me today: No Emergency Visit: No Critical Care patient: No - Discharge Referral Referred to [facility] No
[2019-01-31 14:21] VITALS: BP 130/60; PULSE 109; TEMP 98.4
--- NOTE | 2019-01-31 16:33 | PATH ---
Surgical Pathology Report Patient Name: MAGALI SOLANO Med. Rec. #: [id number] /Age/Gender: 1935 (Age: 83) / F Account: [id number] Location: [facility] MED-SURG Taken: 01/29/2019 Received: 01/29/2019 Reported: 01/31/2019 Physicians: Kem Dumont M.D. Specimen(s) Received LEFT FEMORAL HEAD Clinical History Closed fracture of left hip Final Diagnosis BONE, FEMORAL HEAD, LEFT, HEMIARTHROPLASTY: BONE WITH INTERSTITIAL HEMORRHAGE CONSISTENT WITH FRACTURE. Electronically Signed Nicol Saab M.D. Gross Description Received in formalin labeled "left femoral head," is a 4.4 x 4.3 x 3.4 cm femoral head with no femoral neck attached. The margin of resection is red-brown, jagged and hemorrhagic. No areas of eburnation are identified. The articular surface is villar-yellow and focally granular. The underlying trabecular bone is yellow, hard and focally hemorrhagic. Separately received within the same container is a 3.0 x 2.6 x 2.0 cm hemorrhagic portion of bone, consistent with a portion of femoral neck. Engineering Mechanic sections are submitted in one cassette, following decalcification. /01/30/201901/30/2019
== END 2019-01-31 17:03 | DRG 470 ==
LOC: SUPCPDRO 15:04 → FER 15:04 → FM/S 16:50
PROVIDERS: ADMIT Internal Medicine; ATTEND Nurse Practitioner Acute Care
PROC: 0SRS0JA Replacement of Left Hip Joint, Femoral Surface with Synthetic Substitute, Uncemented, Open Approach (ICD-10-PCS; principal; 2019-01-29 08:37)
DX: S72.012A Unspecified intracapsular fracture of left femur, initial encounter for closed fracture (principal); J98.11 Atelectasis; J44.9 Chronic obstructive pulmonary disease, unspecified; K21.9 Gastro-esophageal reflux disease without esophagitis; J45.909 Unspecified asthma, uncomplicated; I10 Essential (primary) hypertension; D72.829 Elevated white blood cell count, unspecified; W19.XXXA Unspecified fall, initial encounter; Y93.9 Activity, unspecified; Y92.89 Other specified places as the place of occurrence of the external cause; Y99.9 Unspecified external cause status
CPT/HCPCS: 36415; 71045-TC-FY; 71275-TC; 73502-TC-LT-FY; 73523-TC-FY; 73552-TC-LT-FY; 73560-TC-LT-FY; 80048; 80053; 80164; 81003; 81015; 82962; 83735; 85025; 85027; 85379; 85610; 85730; 86850; 86900; 86901; 87086; 88305-TC; 88311-TC; 93005; 93306-TC; 94640; 94760; 97116-GP; 97162-GP; 99283-25; J0131; J1644; J7030

== ENCOUNTER 2019-02-03 00:20 | Inpatient (IN) | payer OTHER, MEDICARE ==
[2019-02-03] MEDS ORDERED: ALBUTEROL SO4 2.5/IPRATROPIUM 0.5 INH SOL 3 ML VIAL.NEB. NEB ONE ×2 (00:25→01:17)
--- NOTE | 2019-02-03 00:33 | PDOC ---
History of Present Illness - General Chief Complaint: Shortness of Breath Stated Complaint: BIBA, SOB Time Seen by Provider: 02/03/19 00:24 - History of Present Illness Initial Comments: 02/03/19 02:44 83 years old past medical history significant for hypertension COPD presents to the emergency department with respiratory distress from [facility]. Patient is status post left hip hemiarthroscopy status post left femoral neck fracture 619. Patient had some respiratory symptoms during her stay in at [facility] [place] had an elevated d-dimer but a negative CTA while at [facility] states that she was not receiving adequate COPD treatments Presents with now 2 day history of progressively worsening shortness of breath cough wheezing. Patient also with some right-sided chest discomfort which she feels is muscular related to coughing and increased work of breathing. Symptoms are moderate persistent constant progressively worsening with no exacerbating or alleviating factors. Past History - Past Medical History Allergies/Adverse Reactions: Allergies Allergy/AdvReac Type Severity Reaction Status Date / Time influenza virus vaccine, Allergy Severe Vomiting Verified 08/02/18 13:14 specific [influenza virus vacc,specific] Home Medications: Ambulatory Orders Budesonide/Formeterol Fumarate [SYMBICORT 160/4.5mcg -] 1 inh PO BID 03/12/17 Pantoprazole Sodium 40 mg PO DAILY 11/24/17 Divalproex *ER* [Depakote *ER* -] 750 mg PO HS 08/02/18 Sertraline HCl [Zoloft] 25 mg PO HS 01/26/19 Aspirin [ASA -] 325 mg PO DAILY tablet 01/31/19 Prednisone [Deltasone] 20 mg PO ASDIR #13 tablet 01/31/19 Anemia: No Asthma: Yes Cancer: Yes Cardiac Disorders: No CVA: No COPD: Yes CHF: No Dementia: No Diabetes: No GI Disorders: Yes Disorders: No HTN: Yes Hypercholesterolemia: No Liver Disease: No Seizures: No Thyroid Disease: No - Surgical History Abdominal Surgery: No Appendectomy: No Cardiac Surgery: No Cholecystectomy: No Lung Surgery: No Neurologic Surgery: No Orthopedic Surgery: No - Suicide/Smoking/Psychosocial Hx Smoking Status: No Smoking History: Unknown if ever smoked Have you smoked in the past 12 months: No Number of Cigarettes Smoked Daily: 0 Information on smoking cessation initiated: No Hx Alcohol Use: No Drug/Substance Use Hx: No Substance Use Type: None Hx Substance Use Treatment: No Review of Systems - Review of Systems Comments:: 02/03/19 02:44 ROS: A complete review of 10 out of 10 review of systems is taken and is negative apart from what is previously mentioned below and in the HPI. *Physical Exam - Vital Signs Last Vital Signs Temp Pulse Resp BP Pulse Ox 98.3 F 126 H 22 H 128/72 93 L 02/03/19 00:22 02/03/19 00:22 02/03/19 00:22 02/03/19 00:22 02/03/19 00:22 - Physical Exam Comments: 02/03/19 02:44 Vitals: Triage Vital signs reviewed General Appearance: no acute distress, well nourished well developed, Head: Atraumatic, Neck: Supple;No Nucal rigidity Chest Wall: Nontender Cardiac: Tachycardic. Lungs: Tachypnea, crackles to right lung base, bilateral mild wheezing, Abdomen: Soft, non distended, normal bowel sounds, non tender to palpation Extremities: Left hip status post hemiarthroscopy. No significant lower extremity swelling. Psych: normal mood, normal affect Heart Score/ECG Review - ECG Impressions Comment:: 02/03/19 02:46 EKG performed at 1:01 AM demonstrates sinus tachycardia no ST elevations or T- wave inversions. Interpreted by me. ED Treatment Course - LABORATORY CBC & Chemistry Diagram: 02/03/19 00:29 02/03/19 00:29 - RADIOLOGY Radiology Studies Ordered: Category Date Time Status CHEST X-RAY PORTABLE* [RAD] Stat Radiology 02/03/19 00:24 Ordered Medical Decision Making - Medical Decision Making 02/03/19 02:47 Patient with moderate respiratory distress chest x-ray demonstrates likely new right lower lobe infiltrate Given tachycardia hypoxia and tachypnea recent hospitalization we'll observe for hospital-acquired pneumonia we'll treat with vancomycin and Zosyn pulmonary has been consult we'll admit for further management. *DC/Admit/Observation/Transfer Diagnosis at time of Disposition: Pneumonia Qualifiers: Pneumonia type: due to unspecified organism Laterality: right Lung location: lower lobe of lung Qualified Code(s): J18.1 - Lobar pneumonia, unspecified organism - Discharge Dispostion Condition at time of disposition: Fair Decision to Admit order: Yes - Referrals Referrals: Huy Roy MD [Primary Care Provider] - - Patient Instructions - Post Discharge Activity
[2019-02-03] MEDS ORDERED: ACETAMINOPHEN 1000 MG/100 ML VIAL (NON FORMULARY) IVPB ONE (01:17)
[2019-02-03] MEDS ORDERED: methylPREDNISolone NA SUCC 125 MG/2 ML VIAL IVPUSH ONE (01:45)
[2019-02-03] MEDS ORDERED: methylPREDNISolone NA SUCC 125 MG/2 ML VIAL ONE (02:00)
[2019-02-03 02:01] LABS: BASO % 0.4 % (0-2.0); EOS % 0.1 % (0-4.5); HEMATOCRIT 37.1 % (32.4-45.2); HEMOGLOBIN 12.1 GM/dL (10.7-15.3); LYMPH % 3.7 % (8-40); MCH 29.9 pg (25.7-33.7); MCHC 32.6 g/dl (32.0-36.0); MEAN CELL VOLUME 91.8 fl (80-96); MEAN PLT VOLUME 11.3 fl (7.5-11.1); MONO % 8.6 % (3.8-10.2); NEUT % 87.2 % (42.8-82.8); PLATELET COUNT 170 K/MM3 (134-434); RBC 4.04 M/mm3 (3.60-5.2); RDW 13.5 % (11.6-15.6); WHITE BLOOD COUNT 17.9 K/mm3 (4.0-10.0)
[2019-02-03 02:16] LABS: INR 1.09 (0.83-1.09); PROTHROMBIN TIME (PATIENT) 12.9 SEC (9.7-13.0)
[2019-02-03 02:18] LABS: ACTIVATED PTT 20.2 SECONDS (25.2-36.5)
[2019-02-03 02:32] LABS: ALBUMIN 2.6 g/dl (3.4-5.0); ALK PHOS 55 U/L (45-117); ANION GAP 5 MMOL/L (8-16); BILIRUBIN,TOTAL 0.5 mg/dL (0.2-1); BLOOD UREA NITROGEN 27.4 mg/dL (7-18); CALCIUM 8.6 mg/dL (8.5-10.1); CHLORIDE 101 mmol/L (98-107); CO2 35 mmol/L (21-32); CREATININE 0.6 mg/dL (0.55-1.3); GLUCOSE,RANDOM 194 mg/dL (74-106); SGOT/AST 15 U/L (15-37); SGPT/ALT 39 U/L (13-61); SODIUM 141 mmol/L (136-145); TOT PROT 6.4 g/dl (6.4-8.2)
[2019-02-03] MEDS ORDERED: VANCOMYCIN 1,000 MG in DEXTROSE 5%-WATER - 250 ML IVPB ONE (02:34)
[2019-02-03] MEDS ORDERED: PIPERACILLIN/TAZOB 3.375 GM 3.375 GM in DEXTROSE 5%-WATER - 50 ML IVPB ONE (02:34)
[2019-02-03] MEDS ORDERED: PIPERACILLIN/TAZOBACTAM 3.375 GM VIAL IVPB ONE ×4 (02:41→17:21)
[2019-02-03] MEDS ORDERED: SODIUM CHLORIDE 0.9% 1000 ML INFUS.BAG IV ONE (03:01)
[2019-02-03] MEDS ORDERED: VANCOMYCIN 1,000 MG VIAL (RESTRICTED TO ID ONLY) ONE (03:20)
[2019-02-03 03:28] LABS: PLATELET ESTIMATE ADEQUATE
--- NOTE | 2019-02-03 07:44 | HP ---
CHIEF COMPLAINT: I have pneumonia. PCP: HISTORY OF PRESENT ILLNESS: 81 year-old female with a PMH significant for HTN, asthma/COPD, GERD, migraines , and chronic back pain. Hospitalized at [place] from 01/26-01/31/19 for left hip fracture s/p left hip hemiarthroplasty. Discharged to [facility]. Daughter reports patient did not get her regular nebulizer treatments at [facility] and the oxygen concentrator in her room was not working properly. Her mother was satting 77% so she had her brought back to ED. ER course was notable for: (1) WBC 17.9, BP 161/77, p 121 (2) Lactic acid 2.4-->1.5 (3) Vanc x 1; Zosyn x 1; NS x 1L Recent Travel: No PAST MEDICAL HISTORY: Hypertension Asthma/COPD GERD Migraines PAST SURGICAL HISTORY: Left hip hemiarthroplasty 01/29/19 Social History: Smoking: denies Alcohol: denies Drugs: denies Family History: Mother ovarian cancer; sister colon cancer Allergies influenza virus vaccine, specific [influenza virus vacc,specific] Allergy ( Severe, Verified 08/02/18 13:14) Vomiting HOME MEDICATIONS: Home Medications Medication Instructions Recorded Budesonide/Formeterol Fumarate 1 inh PO BID 03/12/17 [SYMBICORT 160/4.5mcg -] Pantoprazole Sodium 40 mg PO DAILY 11/24/17 Divalproex *ER* [Depakote *ER* -] 750 mg PO HS 08/02/18 Sertraline HCl [Zoloft] 25 mg PO HS 01/26/19 Aspirin [ASA -] 325 mg PO DAILY tablet 01/31/19 Prednisone [Deltasone] 20 mg PO ASDIR #13 tablet 01/31/19 REVIEW OF SYSTEMS CONSTITUTIONAL: Absent: fever, chills, diaphoresis, generalized weakness, malaise, loss of appetite, weight change HEENT: Absent: rhinorrhea, nasal congestion, throat pain, throat swelling, difficulty swallowing, mouth swelling, ear pain, eye pain, visual changes CARDIOVASCULAR: Absent: chest pain, syncope, palpitations, irregular heart rate, lightheadedness , peripheral edema RESPIRATORY: +SOB, wheezing Absent: cough, shortness of breath, dyspnea with exertion, orthopnea, wheezing, stridor, hemoptysis GASTROINTESTINAL: Absent: abdominal pain, abdominal distension, nausea, vomiting, diarrhea, constipation, melena, hematochezia GENITOURINARY: Absent: dysuria, frequency, urgency, hesitancy, hematuria, flank pain, genital pain MUSCULOSKELETAL: Absent: myalgia, arthralgia, joint swelling, back pain, neck pain SKIN: Absent: rash, itching, pallor HEMATOLOGIC/IMMUNOLOGIC: Absent: easy bleeding, easy bruising, lymphadenopathy, frequent infections ENDOCRINE: Absent: unexplained weight gain, unexplained weight loss, heat intolerance, cold intolerance NEUROLOGIC: Absent: headache, focal weakness or paresthesias, dizziness, unsteady gait, seizure, mental status changes, bladder or bowel incontinence PSYCHIATRIC: Absent: anxiety, depression, suicidal or homicidal ideation, hallucinations. PHYSICAL EXAMINATION Vital Signs - 24 hr 02/03/19 02/03/19 02/03/19 00:22 00:25 01:00 Temperature 98.3 F 99.1 F Pulse Rate 126 H 115 H Pulse Rate [ Right Radial] Respiratory 22 H Rate Blood Pressure 128/72 Blood Pressure [Left Arm] O2 Sat by Pulse 93 L 92 L Oximetry (%) 02/03/19 02/03/19 02/03/19 04:18 05:15 06:59 Temperature 99 F 99 F 98.7 F Pulse Rate 123 H Pulse Rate [ 126 H Right Radial] Respiratory 21 H 21 H 19 Rate Blood Pressure 149/63 Blood Pressure 155/77 [Left Arm] O2 Sat by Pulse 95 95 90 L Oximetry (%) GENERAL: The patient is awake, alert, and fully oriented. Weak. LUNGS: Diffuse wheezing, diminished breath sounds at the bases HEART: Regular rate and rhythm, S1, S2 ABDOMEN: Soft, nontender, nondistended LLE: 2+ DP pulses, warm, well-perfused; left hip surgical dressing c/d/i, ecchymosis extended distally down the leg NEUROLOGICAL: Cranial nerves II through XII grossly intact. Normal speech, gait not observed. Laboratory Results - last 24 hr 02/03/19 02/03/19 02/03/19 00:29 00:29 00:29 WBC 17.9 H RBC 4.04 Hgb 12.1 Hct 37.1 MCV 91.8 MCH 29.9 MCHC 32.6 RDW 13.5 Plt Count 170 MPV 11.3 H D Absolute Neuts (auto) 15.6 H Total Counted 100 Neutrophils % 87.2 H Neutrophils % (Manual) 70.0 Band Neutrophils % 11.0 Lymphocytes % 3.7 L D Lymphocytes % (Manual) 7.0 L Monocytes % 8.6 D Monocytes % (Manual) 12 H Eosinophils % 0.1 D Basophils % 0.4 D Nucleated RBC % 0 Platelet Estimate Adequate Platelet Comment No clotting detected PT with INR 12.90 INR 1.09 PTT (Actin FS) 20.2 L Sodium 141 Potassium 4.0 Chloride 101 Carbon Dioxide 35 H Anion Gap 5 L BUN 27.4 H Creatinine 0.6 Est GFR (CKD-EPI)AfAm 97.69 Est GFR (CKD-EPI)NonAf 84.29 Random Glucose 194 H Lactic Acid Calcium 8.6 Total Bilirubin 0.5 AST 15 ALT 39 Alkaline Phosphatase 55 Troponin I < 0.02 Total Protein 6.4 Albumin 2.6 L 02/03/19 02/03/19 02/03/19 00:29 00:29 04:00 WBC RBC Hgb Hct MCV MCH MCHC RDW Plt Count MPV Absolute Neuts (auto) Total Counted Neutrophils % Neutrophils % (Manual) Band Neutrophils % Lymphocytes % Lymphocytes % (Manual) Monocytes % Monocytes % (Manual) Eosinophils % Basophils % Nucleated RBC % Platelet Estimate Platelet Comment PT with INR INR PTT (Actin FS) Sodium Potassium Chloride Carbon Dioxide Anion Gap BUN Creatinine Est GFR (CKD-EPI)AfAm Est GFR (CKD-EPI)NonAf Random Glucose Lactic Acid 2.4 H* 1.5 Calcium Total Bilirubin AST ALT Alkaline Phosphatase Troponin I Cancelled Total Protein Albumin ASSESSMENT/PLAN 81 year-old female with a PMH significant for HTN, asthma/COPD, GERD, migraines , and chronic back pain. Hospitalized at [place] from 01/26-01/31/19 for left hip fracture s/p left hip hemiarthroplasty. Severe sepsis of uncertain etiology --WBC 17.9k, p 121, lactic acid 2.4 --urine, blood, sputum cultures ordered --CXR unremarkable, CT chest pending --continue empiric Zosyn; NS x 1L given in ED, will give 500cc bolus now Acute on chronic hypoxic respiratory failure Acute on chronic COPD r/o pneumonia, aspiration? --dropped O2 sats to 80s on 2L NC; put on venti mask, titrate to 94% --serum bicarb elevated; ABG pending --continue duonebs, Symbicort, solumedrol --titrate O2 94% Left femoral neck fracture s/p left hip hemiarthroplasty 01/29 --hematoma extending distally, not seen on discharge on 01/31 --CT LLE pending Hypertension --continue amlodipine 5mg GERD --Protonix Migraines --continue valproic acid, level therapeutic --continue sertraline FEN Fluids: Fluid resucitated 1.5L; NS @ 50mL/hr Electrolytes: replete as indicated Nutrition: dysphagia, thick; observed eating breakfast this morning coughing , speech and swallow ordered DVT prophylaxis: OOB, ambulation, SCDs, ASA 325mg daily Physical therapy Dispo: continues to require inpatient care. Full code. Visit type - Emergency Visit Emergency Visit: Yes ED Registration Date: 02/03/19 Care time: The patient presented to the Emergency Department on the above date and was hospitalized for further evaluation of their emergent condition. - New Patient This patient is new to me today: Yes Date on this admission: 02/03/19 - Critical Care Critical Care patient: Yes Total Critical Care Time (in minutes): 45 Critical Care Statement: The care of this patient involved high complexity decision making to prevent further life threatening deterioration of the patient 's condition and/or to evaluate & treat vital organ system(s) failure or risk of failure.
[2019-02-03] MEDS: ALBUTEROL SO4 2.5/IPRATROPIUM 0.5 INH SOL 3 ML VIAL.NEB. NEB SCH ×4 (09:00→21:24)
[2019-02-03] MEDS ORDERED: PT OWN MED DRAWER 7, Y5N ONE ×2 (09:30→21:14)
[2019-02-03] MEDS ORDERED: amLODIPine BESYLATE 2.5 MG TABLET (FP) PO SCH (10:00)
[2019-02-03] MEDS: ASPIRIN 325 MG TABLET PO SCH (10:23)
[2019-02-03] MEDS: PANTOPRAZOLE 40 MG TABLET (FP) PO SCH (10:23)
[2019-02-03] MEDS: BUDESONIDE/FORMETEROL FUMARATE 160/4.5 mcg INHALER IH SCH ×2 (10:24→21:24)
[2019-02-03] MEDS: methylPREDNISolone NA SUCC 40 MG/1 ML VIAL IVPUSH SCH ×4 (10:24→21:24)
--- NOTE | 2019-02-03 10:39 | EKG ---
Test Reason : Blood Pressure : / mmHG Vent. Rate : 121 BPM Atrial Rate : 121 BPM P-R Int : 160 ms QRS Dur : 080 ms QT Int : 290 ms P-R-T Axes : 064 025 050 degrees QTc Int : 411 ms SINUS TACHYCARDIA POSSIBLE LEFT ATRIAL ENLARGEMENT BORDERLINE ECG WHEN COMPARED WITH ECG OF 26-JAN-2019 17:55, NO SIGNIFICANT CHANGE WAS FOUND Confirmed by ARIANNA KATE MD ([id number]) on 02/03/2019 10:39:20 AM Referred By: DR OHARA Confirmed By:ARIANNA KATE MD
[2019-02-03] MEDS ORDERED: SODIUM CHLORIDE 500 ML IV STA (11:22)
[2019-02-03] MEDS ORDERED: PIPERACILLIN/TAZOB 3.375 GM 3.375 GM in DEXTROSE 5%-WATER - 50 ML IVPB SCH (11:45)
--- NOTE | 2019-02-03 12:01 | CON.ID ---
Consult - Past Medical History Cardio/Vascular: Yes: HTN. No: AFIB Pulmonary: Yes: Asthma, COPD Gastrointestinal: Yes: GERD Musculoskeletal: Yes: Chronic low back pain - Alcohol/Substance Use Hx Alcohol Use: No History of Substance Use: reports: None - Smoking History Smoking history: Unknown if ever smoked Have you smoked in the past 12 months: No Aproximately how many cigarettes per day: 0 - Social History ADL: Family Assistance History of Recent Travel: No Home Medications - Allergies Allergies/Adverse Reactions: Allergies Allergy/AdvReac Type Severity Reaction Status Date / Time influenza virus vaccine, Allergy Severe Vomiting Verified 08/02/18 13:14 specific [influenza virus vacc,specific] - Home Medications Home Medications: Ambulatory Orders Budesonide/Formeterol Fumarate [SYMBICORT 160/4.5mcg -] 1 inh PO BID 03/12/17 Pantoprazole Sodium 40 mg PO DAILY 11/24/17 Divalproex *ER* [Depakote *ER* -] 750 mg PO HS 08/02/18 Sertraline HCl [Zoloft] 25 mg PO HS 01/26/19 Aspirin [ASA -] 325 mg PO DAILY tablet 01/31/19 Prednisone [Deltasone] 20 mg PO ASDIR #13 tablet 01/31/19 Physical Exam Vital Signs: Vital Signs Temperature 98.7 F 02/03/19 10:00 Pulse Rate 121 H 02/03/19 10:00 Respiratory Rate 19 02/03/19 10:00 Blood Pressure 161/77 02/03/19 10:00 O2 Sat by Pulse Oximetry (%) 94 L 02/03/19 10:00 Labs: CBC, BMP 02/03/19 00:29 02/03/19 00:29
[2019-02-03] MEDS ORDERED: DEXTROSE 5%-WATER - 50 ML IVPB ONE ×3 (12:06→17:22)
[2019-02-03] MEDS: PIPERACILLIN/TAZOB 3.375 GM 3.375 GM in DEXTROSE 5%-WATER - 50 ML IVPB SCH ×2 (12:44→17:53)
--- NOTE | 2019-02-03 12:56 | CONSULT ---
Admitting History and Physical - Primary Care Physician PCP: Denise Talavera - Admission History of Present Illness: 81 year-old female with a PMH significant for HTN, asthma/COPD, GERD, migraines , and chronic back pain. Hospitalized at [place] from 01/26-01/31/19 for left hip fracture s/p left hip hemiarthroplasty. Severe sepsis -w/u in progress Per nursing, PATIENT 02 SATURATION 87% ON 3LNC, VENTI MASK 50% O2 SATURATION 94% Selected Entries 02/03/19 02/03/19 02/03/19 00:22 01:00 04:18 Breakfast Diet Tolerated Temperature 98.3 F 99.1 F 99 F 02/03/19 02/03/19 02/03/19 05:15 06:59 09:17 Breakfast 75% Diet Tolerated Well Temperature 99 F 98.7 F 02/03/19 10:00 Breakfast Diet Tolerated Temperature 98.7 F Laboratory Tests 02/03/19 00:29 WBC 17.9 H - Past Medical History Cardiovascular: Yes: HTN. No: AFIB Pulmonary: Yes: Asthma, COPD Gastrointestinal: Yes: GERD Musculoskeletal: Yes: Chronic low back pain - Advance Directives Advance Directives: Yes: DNR - Smoking History Smoking history: Unknown if ever smoked Have you smoked in the past 12 months: No Aproximately how many cigarettes per day: 0 - Alcohol/Substance Use Hx Alcohol Use: No History of Substance Use: reports: None - Social History ADL: Family Assistance History of Recent Travel: No History - Admission Reason For Visit: BIBA, SOB - Hearing Hearing: Normal Hearing Aide: No With Patient: No Speech Evaluation - Communication Primary Language: PALAUAN - Swallow Evaluation/Bedside Assessment Current Nutritional Intake: Dysphagia Minced, [place] Textured Liquids
[2019-02-03] MEDS ORDERED: SODIUM CHLORIDE 1,000 ML IV SCH (13:00)
--- NOTE | 2019-02-03 13:48 | EKG ---
Test Reason : Blood Pressure : / mmHG Vent. Rate : 108 BPM Atrial Rate : 108 BPM P-R Int : 168 ms QRS Dur : 078 ms QT Int : 316 ms P-R-T Axes : 058 008 040 degrees QTc Int : 423 ms SINUS TACHYCARDIA POSSIBLE LEFT ATRIAL ENLARGEMENT POSSIBLE ANTERIOR INFARCT , AGE UNDETERMINED ABNORMAL ECG WHEN COMPARED WITH ECG OF 03-FEB-2019 01:01, NO SIGNIFICANT CHANGE WAS FOUND Confirmed by ARIANNA KATE MD ([id number]) on 02/03/2019 1:47:44 PM Referred By: Rikki GUADARRAMA Confirmed By:ARIANNA KATE MD
[2019-02-03 14:08] LABS: ARTERIAL BLOOD GAS BASE EXCESS 8.1 meq/l (-2-2); ARTERIAL BLOOD GAS PCO2 47.9 mmHg (35-45); ARTERIAL BLOOD GAS PO2 80.5 mmHg (80-105); ARTERIAL BLOOD GAS pH 7.45 (7.35-7.45)
[2019-02-03 14:09] LABS: ALLENS TEST POSITIVE
--- NOTE | 2019-02-03 15:49 | CONSULT ---
Admitting History and Physical - Primary Care Physician PCP: Denise Talavera - Admission History of Present Illness: Per EMR- 81 year-old female with a PMH significant for HTN, asthma/COPD, GERD, migraines , and chronic back pain. Hospitalized at [place] from 01/26-01/31/19 for left hip fracture s/p left hip hemiarthroplasty. Discharged to [facility]. Daughter reports patient did not get her regular nebulizer treatments at [facility] and the oxygen concentrator in her room was not working properly. Her mother was satting 77% so she had her brought back to ED. Pt known to me from 06/19/18 out pt MBS. At that time, pt was referred to me by Dr. Espinosa, GI,with persistent cough while eating. The swallow reflex was brisk , with silent aspiration on honey thick liquid on a tsn with head flexed. Aspiration was eliminated with BREATH-HOLD technique with effortful swallow. I recommended- ENT to visualize vocal cords, discuss DNR/DNI, soft food, honey thick liquid on a tsp with head flexed,with BREATH-HOLD technique with effortful swallow. Pt/family reported excellent improvement with less congestion , cough, no recurrent PNA/ bronchitis,and pt is now DNR/DNI per EMR. Pt reports not eating much at [facility] as she disliked the food, drinking her own thickened liquids, not brushing her teeth during her stay there. History Source: Patient, Family Member Limitations to Obtaining History: Language Barrier - Past Medical History Cardiovascular: Yes: HTN. No: AFIB Pulmonary: Yes: Asthma, COPD Gastrointestinal: Yes: GERD Musculoskeletal: Yes: Chronic low back pain - Advance Directives Advance Directives: Yes: DNR - Smoking History Smoking history: Unknown if ever smoked Have you smoked in the past 12 months: No Aproximately how many cigarettes per day: 0 - Alcohol/Substance Use Hx Alcohol Use: No History of Substance Use: reports: None - Social History ADL: Family Assistance History of Recent Travel: No History - Admission Reason For Visit: BIBA, SOB - Diagnostics X-ray: Report Reviewed CT Scan: Pending - General Mental Status: Alert and Oriented, Awake and Alert, Able to Follow Commands Attention: Intact Ability to Follow Directions: Excellent Head/Neck Control: WFL - Hearing Hearing: Normal Hearing Aide: No With Patient: No Speech Evaluation - Communication Primary Language: CHADIAN Communication: Yes: Within Normal Limits Oral Expression Ability: Yes: Mild Impairment - Speech Production Able to Make Needs Known: Yes: WNL Intelligibility: Yes: Mildly Impaired - Speech Characteristics Voice Loudness: Normal Voice Pitch: Yes: Pitch Breaks Voice Phonatory-based Quality: Yes: Hoarse, Dysphonia Speech Clarity: < 75% Nasal Resonance: Normal Articulation: Yes: Precise - Language/Auditory Comprehension Follows: Yes: 2 Stage Simple Commands - Language/Verbal Expression Able to Respond to Simple Queries: Yes: WNL Able to Communicate Wants and Needs: Yes: WNL Functional Communication Status: Yes: WNL - Swallow Evaluation/Bedside Assessment Current Nutritional Intake: [place] Textured Liquids, Other (chopped) Oral Secretions: Yes: WFL Tracheostomy Present: No Patient on Ventilator: No Dentition: Yes: Adequate Facial Symmetry at Rest: Symmetrical Facial Symmetry on Retraction: Symmetrical Against Resistance Opening: Normal Against Resistance Closing: Normal Pucker Lips: Normal Smile: Normal Lingual Movement: Normal, Symmetric Lingual Speed of Movement: Normal Lingual Movement Strgth Against Opposition: Normal Lingual Movement Characteristics: Normal Velopharyngeal Movement: Normal Laryngeal Elevation: WFL Laryngeal Movement: Able to Palpate Rate of Intake: WFL Bolus Size: Small Labial Seal: WFL Chewing: WFL Oral Prep Time: WFL A-P Transit: WFL Pocketing: None Timing of Swallow: WFL Coughing/Throat Clear: No Change in Voice: Yes (intermittent wetness) Recommendations - Speech Evaluation, Impression/Plan Impression: MBS 06/19/18 swallow reflex was brisk, with silent aspiration on honey thick liquid on a tsn with head flexed. Aspiration was eliminated with BREATH-HOLD technique with effortful swallow. Dysphonic voice, intermittent vocal wetness with honey thick liquid. Pt follows recommendations and attempts to comply,however, silent aspiration can not be r/o at bedside. - Disposition Discharge to: Home with Assist - Dysphagia Impressions/Plan Swallowing Skills: Impaired Dysphagia Impressions: Moderate Impairment, Severe Impairment, Risk of Aspiration *Silent aspiration: cannot be R/O at bedside Dysphagia Treatment Plan: Small Bites, Chin Tuck/Down, Safe Rate, 1/2 tsp. at a time, Elevate HOB during feed, Other (BREATH-HOLD technique with effortful swallow.) Recommendations: Modified Barium Swallow (repeat at [facility], upon d/c), Other ( mouth care before meals.) - Recommendations Diet Consistency: Regular (soft) Medication Administration: Crushed with applesauce Liquids: Honey Thick, Pudding Thick Supplement: Magic Cup, Ensure Pudding
--- NOTE | 2019-02-03 17:54 | PN ---
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 (short form) - Note 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: PULMONARY CONSULTATION DICTATED 02/03/19 IMP ACUTE RESPIRATORY DISTRESS/HYPOXEMIA PNEUMONIA/ATELECTASIS ? ASPIRATION ASTHMA/COPD EXACERBATION RECENT HIP FX/S/P REPAIR HTN ELEVATED LACTATE LEVEL PLAN ABX SUPPLEMENTAL O2 STEROIDS INHALED BRONCHODILATORS SPUTUM C+S DVT PROPHYLAXIS INCENTIVE SPIROMETER DR SOTO Problem List - Problems (1) Pneumonia Code(s): J18.9 - PNEUMONIA, UNSPECIFIED ORGANISM Qualifiers: Pneumonia type: due to unspecified organism Laterality: right Lung location: lower lobe of lung Qualified Code(s): J18.1 - Lobar pneumonia, unspecified organism (2) Bronchitis Code(s): J40 - BRONCHITIS, NOT SPECIFIED ACUTE OR CHRONIC (3) Closed left hip fracture Code(s): S72.002A - FRACTURE OF UNSP PART OF NECK OF LEFT FEMUR, INIT (4) Shortness of breath Code(s): R06.02 - SHORTNESS OF BREATH (5) Asthma Code(s): J45.909 - UNSPECIFIED ASTHMA, UNCOMPLICATED (6) GERD (gastroesophageal reflux disease) Code(s): K21.9 - GASTRO-ESOPHAGEAL REFLUX DISEASE WITHOUT ESOPHAGITIS (7) Acute on chronic respiratory failure with hypoxemia Code(s): J96.21 - ACUTE AND CHRONIC RESPIRATORY FAILURE WITH HYPOXIA
[2019-02-03] MEDS: SERTRALINE HCL 25 MG TABLET (FP) PO SCH (21:23)
[2019-02-03] MEDS: DIVALPROEX NA *ER* EXTEND REL 250 MG TABLET.SA PO SCH (21:23)
--- NOTE | 2019-02-03 22:06 | CONS ---
PULMONARY CONSULTATION DATE OF CONSULTATION: 02/03/2019 REFERRING PROVIDER: Denise Talavera NP The patient is an 81-year-old white female known to me in previous hospitalization with past medical history of chronic asthma, hypertension, GERD, migraines, chronic back pain, recently hospitalized at [facility] on January 26 to January 31 secondary to a left hip fracture status post left hip hemiarthroplasty. Previous hospitalization was complicated by shortness of breath and chest congestion, treated with steroids, inhaled bronchodilators with good clinical response, was transferred to [facility] post discharge. Patient apparently did not receive her [facility]bul[facility] apparentlyShe was noted apparently at the shelter tohave an O2 saturation of 77%. At which time, she was brought back to the emergency room. Patient in the ER underwent a CT scan of the chest which revealed bibasilar consolidations, possible infiltrates, versus atelectasis. She was admitted to the floor, started on inhaled bronchodilators, IV steroids as well as antibiotic therapy to cover hospital-acquired pneumonia. Patient is a nonsmoker. There is no history of occupational exposure to chemicals or fumes. PAST MEDICAL HISTORY: Again includes asthma, COPD on O2 at home; migraines; GERD; chronic back pain; recent left hip fracture status post left hip hemiarthroplasty. SOCIAL HISTORY: Nonsmoker. No EtOH. No occupational exposures. CURRENT MEDICATIONS: Include Symbicort, Solu-Medrol, Zosyn, Depakote, Zoloft, DuoNeb, Norvasc, normal saline, lactated Ringer's, aspirin, and Protonix. PHYSICAL EXAMINATION: General: The patient is an elderly white female, well developed, well nourished , awake, alert, in no acute respiratory distress. Vital Signs: She is currently afebrile. Blood pressure is 155/70. Respiratory rate is 20, and O2 saturation is 96% on 40% Ventimask. HEENT: Exam is normocephalic, atraumatic. Neck: Supple. Heart: Regular. S1, S2. Chest: Diffuse bilateral wheezes and rhonchi. Abdomen: Soft. Bowel sounds are positive. Extremities: No cyanosis or edema. LABORATORY DATA: WBC 17.9, hemoglobin 12.1, hematocrit 37.1, and platelet count of 170,000. INR is 1.09. Blood gas showed pH of 7.45, pCO2 of 47, a pO2 of 80, a bicarbonate of 33, and a saturation of 96; that is on unknown quantity of oxygen. Chemistries: BUN is 27, creatinine 0.6. Initial lactate level was 2.4, currently repeat 1.5. Chest CT as noted earlier. IMPRESSION: [id number] hypoxemic respiratory failure secondary to: 1. pneumonia/atelectasis . 2. Bibasilar atelectasis. 3. Asthma/chronic obstructive pulmonary disease exacerbation. 4. Recent hip fracture status post repair. 5. Hypertension. PLAN: Antibiotics, supplemental O2, IV steroids, inhaled bronchodilators, sputum C&S, DVT prophylaxis, incentive spirometer, followup chest x-rays. SHOAIB SOTO M.D. [id number] MTDD
[2019-02-04] MEDS ORDERED: PIPERACILLIN/TAZOBACTAM 3.375 GM VIAL IVPB ONE ×3 (03:12→17:43)
[2019-02-04] MEDS ORDERED: DEXTROSE 5%-WATER - 50 ML IVPB ONE ×3 (03:12→17:43)
[2019-02-04] MEDS: methylPREDNISolone NA SUCC 40 MG/1 ML VIAL IVPUSH SCH ×4 (03:34→21:08)
[2019-02-04] MEDS: PIPERACILLIN/TAZOB 3.375 GM 3.375 GM in DEXTROSE 5%-WATER - 50 ML IVPB SCH ×3 (03:34→18:01)
[2019-02-04 08:19] LABS: BASO % 0.3 % (0-2.0); HEMATOCRIT 29.7 % (32.4-45.2); LYMPH % 3.4 % (8-40); MCH 30.7 pg (25.7-33.7); MCHC 33.8 g/dl (32.0-36.0); MEAN CELL VOLUME 90.8 fl (80-96); MEAN PLT VOLUME 9.7 fl (7.5-11.1); MONO % 5.5 % (3.8-10.2); NEUT % 90.8 % (42.8-82.8); PLATELET COUNT 216 K/MM3 (134-434); RBC 3.27 M/mm3 (3.60-5.2); RDW 12.2 % (11.6-15.6)
[2019-02-04 08:24] LABS: CALCIUM 7.9 mg/dl (8.5-10); CREATININE 0.5 mg/dl (0.55-1.3); POTASSIUM 4.2 mmol/L (3.5-5.1)
[2019-02-04] MEDS: ALBUTEROL SO4 2.5/IPRATROPIUM 0.5 INH SOL 3 ML VIAL.NEB. NEB SCH ×4 (08:32→21:09)
[2019-02-04] MEDS ORDERED: PIPERACILLIN/TAZOB 3.375 GM 3.375 GM in DEXTROSE 5%-WATER - 50 ML IVPB SCH (10:00)
--- NOTE | 2019-02-04 10:05 | PN ---
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, RN POST PARTUM - Note 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: Selected Entries 02/03/19 02/03/19 02/03/19 00:22 01:00 04:18 Breakfast Diet Tolerated Supper Temperature 98.3 F 99.1 F 99 F 02/03/19 02/03/19 02/03/19 05:15 06:59 09:17 Breakfast 75% Diet Tolerated Supper Temperature 99 F 98.7 F 02/03/19 02/03/19 02/03/19 10:00 14:06 17:00 Breakfast Diet Tolerated Supper 25% Temperature 98.7 F 98.6 F 02/03/19 02/03/19 02/04/19 18:00 22:00 01:44 Breakfast Diet Tolerated Supper Temperature 97.6 F 98.1 F 99.5 F 02/04/19 02/04/19 06:00 09:25 Breakfast 50% Diet Tolerated Fair Supper Temperature 98.5 F Laboratory Tests 02/03/19 02/04/19 00:29 07:37 WBC 17.9 H 16.0 H Case reviewed with SURGICAL SUPERVISOR,Pulmonary,surgeon. CT chest noted. Pt feeling a little better today, on nasal o2, not dyspneic, has cough. Reviewed swallowing technigue of BREATH-HOLD, SWALLOW HARD with each trial. On honey thick liquids that she voluntarily adds thickener to which is really pudding thick. Monitor for dehydration. MBS when appropriate at [facility].
--- NOTE | 2019-02-04 10:08 | PN ---
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, Physician History of Present Illness: pulmonary alert,feeling better,less congested - Current Medication List Current Medications: Active Medications Acetaminophen (Tylenol -) 650 mg PO Q6H PRN PRN Reason: PAIN OR FEVER Albuterol/Ipratropium (Duoneb -) 1 amp NEB RQID [facility] Last Admin: 02/04/19 08:32 Dose: 1 amp Amlodipine Besylate (Norvasc -) 5 mg PO DAILY JOSELINE Aspirin (Asa -) 325 mg PO DAILY [facility] Last Admin: 02/03/19 10:23 Dose: 325 mg Budesonide/Formoterol Fumarate (Symbicort 160/4.5mcg -) 1 puff IH BID JOSELINE Last Admin: 02/03/19 21:24 Dose: 1 puff Divalproex Sodium (Depakote *Er* -) 750 mg PO HS [facility] Last Admin: 02/03/19 21:23 Dose: 750 mg Piperacillin Sod/Tazobactam (Sod 3.375 gm/ Dextrose) 50 mls @ 100 mls/hr IVPB Q8H-IV JOSELINE; Protocol Last Admin: 02/04/19 03:34 Dose: 100 mls/hr Sodium Chloride (Normal Saline -) 1,000 mls @ 50 mls/hr IV ASDIR JOSELINE Stop: 02/04/19 12:47 Last Admin: 02/03/19 12:56 Dose: 50 mls/hr Methylprednisolone Sodium Succinate (Solu-Medrol -) 40 mg IVPUSH Q6H-IV JOSELINE Last Admin: 02/04/19 08:32 Dose: 40 mg Pantoprazole Sodium (Protonix -) 40 mg PO DAILY [facility] Last Admin: 02/03/19 10:23 Dose: 40 mg Sertraline HCl (Zoloft -) 25 mg PO HS [facility] Last Admin: 02/03/19 21:23 Dose: 25 mg - Objective Vital Signs: Vital Signs Temperature 98.5 F 02/04/19 06:00 Pulse Rate 103 H 02/04/19 06:00 Respiratory Rate 18 02/04/19 09:00 Blood Pressure 145/67 02/04/19 06:00 O2 Sat by Pulse Oximetry (%) 90 L 02/04/19 09:00 Constitutional: Yes: Well Nourished, Calm Eyes: Yes: WNL HENT: Yes: WNL Neck: Yes: WNL Cardiovascular: Yes: Regular Rate and Rhythm, S1, S2 Respiratory: Yes: Rhonchi, Wheezes (less wheezes and rhonchi bilaterally) Gastrointestinal: Yes: Normal Bowel Sounds, Soft Extremities: Yes: WNL Edema: No Labs: CBC, BMP 02/04/19 07:37 02/04/19 07:37 INR, PTT INR 1.09 (0.83-1.09) 02/03/19 00:29 Problem List - Problems (1) Pneumonia Code(s): J18.9 - PNEUMONIA, UNSPECIFIED ORGANISM Qualifiers: Pneumonia type: due to unspecified organism Laterality: right Lung location: lower lobe of lung Qualified Code(s): J18.1 - Lobar pneumonia, unspecified organism (2) Bronchitis Code(s): J40 - BRONCHITIS, NOT SPECIFIED ACUTE OR CHRONIC (3) Closed left hip fracture Code(s): S72.002A - FRACTURE OF UNSP PART OF NECK OF LEFT FEMUR, INIT (4) Shortness of breath Code(s): R06.02 - SHORTNESS OF BREATH (5) Asthma Code(s): J45.909 - UNSPECIFIED ASTHMA, UNCOMPLICATED (6) GERD (gastroesophageal reflux disease) Code(s): K21.9 - GASTRO-ESOPHAGEAL REFLUX DISEASE WITHOUT ESOPHAGITIS (7) Acute on chronic respiratory failure with hypoxemia Code(s): J96.21 - ACUTE AND CHRONIC RESPIRATORY FAILURE WITH HYPOXIA Assessment/Plan IMP ACUTE RESPIRATORY DISTRESS/HYPOXEMIA PNEUMONIA/ATELECTASIS ASTHMA/COPD EXACERBATION RECENT HIP FX/S/P REPAIR HTN ELEVATED LACTATE LEVEL PLAN CONTINUE ABX SUPPLEMENTAL O2 STEROIDS SAME DOSE INHALED BRONCHODILATORS SPUTUM C+S DVT PROPHYLAXIS INCENTIVE SPIROMETER DR SOTO Problem List - Problems (1) Pneumonia Code(s): J18.9 - PNEUMONIA, UNSPECIFIED ORGANISM Qualifiers: Pneumonia type: due to unspecified organism Laterality: right Lung location: lower lobe of lung Qualified Code(s): J18.1 - Lobar pneumonia, unspecified organism (2) Bronchitis Code(s): J40 - BRONCHITIS, NOT SPECIFIED ACUTE OR CHRONIC (3) Closed left hip fracture Code(s): S72.002A - FRACTURE OF UNSP PART OF NECK OF LEFT FEMUR, INIT (4) Shortness of breath Code(s): R06.02 - SHORTNESS OF BREATH (5) Asthma Code(s): J45.909 - UNSPECIFIED ASTHMA, UNCOMPLICATED (6) GERD (gastroesophageal reflux disease) Code(s): K21.9 - GASTRO-ESOPHAGEAL REFLUX DISEASE WITHOUT ESOPHAGITIS (7) Acute on chronic respiratory failure with hypoxemia Code(s): J96.21 - ACUTE AND CHRONIC RESPIRATORY FAILURE WITH HYPOXIA
[2019-02-04] MEDS ORDERED: PT OWN MED DRAWER 7, Y5N ONE ×3 (10:26→21:06)
[2019-02-04] MEDS: PANTOPRAZOLE 40 MG TABLET (FP) PO SCH (10:36)
[2019-02-04] MEDS: ASPIRIN 325 MG TABLET PO SCH (10:36)
[2019-02-04] MEDS: BUDESONIDE/FORMETEROL FUMARATE 160/4.5 mcg INHALER IH SCH ×2 (10:36→21:08)
[2019-02-04] MEDS: amLODIPine BESYLATE 5 MG TABLET (FP) PO SCH (10:36)
[2019-02-04 11:31] LABS: EPITHELIAL CELLS 1+ /hpf
--- NOTE | 2019-02-04 13:28 | PN ---
Physical Exam: SUBJECTIVE: Patient seen and examined. Breathing is slightly better. OBJECTIVE: Vital Signs Period Temp Pulse Resp BP Sys/Carr Pulse Ox Last 24 Hr 97.6 F-99.5 F 94-112 16-20 114-155/50-80 90-95 GENERAL: The patient is awake, alert, and fully oriented. Weak. LUNGS: Diffuse wheezing, diminished breath sounds at the bases HEART: Regular rate and rhythm, S1, S2 ABDOMEN: Soft, nontender, nondistended LLE: 2+ DP pulses, warm, well-perfused; left hip surgical dressing c/d/i, ecchymosis extended distally down the leg NEUROLOGICAL: Cranial nerves II through XII grossly intact. Normal speech, gait not observed. Laboratory Results - last 24 hr 02/03/19 02/03/19 02/04/19 10:58 12:55 07:37 WBC 16.0 H RBC 3.27 L Hgb 10.0 L Hct 29.7 L MCV 90.8 MCH 30.7 MCHC 33.8 RDW 12.2 Plt Count 216 MPV 9.7 Absolute Neuts (auto) 14.6 Neutrophils % 90.8 H Lymphocytes % 3.4 L Monocytes % 5.5 Eosinophils % 0.0 Basophils % 0.3 Puncture Site Left radial ABG pH 7.45 ABG pCO2 at Pt Temp 47.9 H ABG pO2 at Pt Temp 80.5 ABG HCO3 33.0 H ABG O2 Sat (Measured) 96.0 ABG O2 Content 17.5 ABG Base Excess 8.1 H [place] Test Positive Oxygen Flow Rate Yes Sodium Potassium Chloride Carbon Dioxide Anion Gap BUN Creatinine Est GFR (CKD-EPI)AfAm Est GFR (CKD-EPI)NonAf Random Glucose Calcium Urine Color Yellow Urine Appearance Clear Urine pH 6.0 Urine Protein 1+ H Urine Glucose (UA) Negative Urine Ketones Trace Urine Blood Negative Urine Nitrite Negative Urine Bilirubin Negative Urine Urobilinogen 1.0 Ur Leukocyte Esterase Trace H Urine RBC 0-3 Urine WBC 0-3 Ur Transition Epith Cell 1+ 02/04/19 07:37 WBC RBC Hgb Hct MCV MCH MCHC RDW Plt Count MPV Absolute Neuts (auto) Neutrophils % Lymphocytes % Monocytes % Eosinophils % Basophils % Puncture Site ABG pH ABG pCO2 at Pt Temp ABG pO2 at Pt Temp ABG HCO3 ABG O2 Sat (Measured) ABG O2 Content ABG Base Excess [place] Test Oxygen Flow Rate Sodium 140 Potassium 4.2 Chloride 102 Carbon Dioxide 30 Anion Gap 8 BUN 26.0 H Creatinine 0.5 L Est GFR (CKD-EPI)AfAm 103.73 Est GFR (CKD-EPI)NonAf 89.50 Random Glucose 196 H Calcium 7.9 L Urine Color Urine Appearance Urine pH Urine Protein Urine Glucose (UA) Urine Ketones Urine Blood Urine Nitrite Urine Bilirubin Urine Urobilinogen Ur Leukocyte Esterase Urine RBC Urine WBC Ur Transition Epith Cell Active Medications Generic Name Dose Route Start Last Admin Trade Name Freq PRN Reason Stop Dose Admin Acetaminophen 650 mg 02/03/19 08:00 Tylenol - PO Q6H PRN PAIN OR FEVER Albuterol/Ipratropium 1 amp 02/03/19 08:00 02/04/19 08:32 Duoneb - NEB 1 amp RQID JOSELINE Administration Amlodipine Besylate 5 mg 02/04/19 10:00 02/04/19 10:36 Norvasc - PO 5 mg DAILY JOSELINE Administration Aspirin 325 mg 02/03/19 10:00 02/04/19 10:36 Asa - PO 325 mg DAILY JOSELINE Administration Budesonide/Formoterol Fumarate 1 puff 02/03/19 10:00 02/04/19 10:36 Symbicort 160/4.5mcg - IH 1 puff BID JOSELINE Administration Divalproex Sodium 750 mg 02/03/19 22:00 02/03/19 21:23 Depakote *Er* - PO 750 mg HS JOSELINE Administration Piperacillin Sod/Tazobactam 50 mls @ 100 mls/hr 02/03/19 12:15 02/04/19 10:36 Sod 3.375 gm/ Dextrose IVPB 100 mls/hr Q8H-IV JOSELINE Administration Protocol Methylprednisolone Sodium Succinate 40 mg 02/03/19 18:15 02/04/19 08:32 Solu-Medrol - IVPUSH 40 mg Q6H-IV JOSELINE Administration Pantoprazole Sodium 40 mg 02/03/19 10:00 02/04/19 10:36 Protonix - PO 40 mg DAILY JOSELINE Administration Sertraline HCl 25 mg 02/03/19 22:00 02/03/19 21:23 Zoloft - PO 25 mg HS JOSELINE Administration ASSESSMENT/PLAN 81 year-old female with a PMH significant for HTN, asthma/COPD, GERD, migraines , and chronic back pain. Hospitalized at [place] from 01/26-01/31/19 for left hip fracture s/p left hip hemiarthroplasty. Readmitted for multilobar pneumonia. Severe sepsis secondary to HCAP --02/03 CT: LLL infiltrate (new); small infiltrate TARYN; infiltrate RUL; small right pleural effusion --WBC 17.9k, p 121, lactic acid 2.4 on admission --now afebrile, persistent leukocytosis (on steroids) --cultures negative to date --continue Zosyn (day #3) Acute on chronic hypoxic respiratory failure Acute on chronic COPD --continue duonebs, Symbicort, solumedrol --titrate O2 <94% Left femoral neck fracture s/p left hip hemiarthroplasty 01/29 --working with PT --ortho following Hypertension --continue amlodipine 5mg GERD --Protonix Migraines --continue valproic acid, level therapeutic --continue sertraline FEN Fluids: PO intake adequate Electrolytes: replete as indicated Nutrition: dysphagia thick liquids DVT prophylaxis: OOB, ambulation, SCDs, ASA 325mg daily Physical therapy Dispo: continues to require inpatient care. Full code. Visit type - Emergency Visit Emergency Visit: Yes ED Registration Date: 02/03/19 Care time: The patient presented to the Emergency Department on the above date and was hospitalized for further evaluation of their emergent condition. - New Patient This patient is new to me today: No - Critical Care Critical Care patient: No
--- NOTE | 2019-02-04 15:06 | PN ---
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, Physician History of Present Illness: patient feels much better no new issues sitting in the chair - Current Medication List Current Medications: Active Medications Acetaminophen (Tylenol -) 650 mg PO Q6H PRN PRN Reason: PAIN OR FEVER Albuterol/Ipratropium (Duoneb -) 1 amp NEB RQID [facility] Last Admin: 02/04/19 08:32 Dose: 1 amp Amlodipine Besylate (Norvasc -) 5 mg PO DAILY [facility] Last Admin: 02/04/19 10:36 Dose: 5 mg Aspirin (Asa -) 325 mg PO DAILY [facility] Last Admin: 02/04/19 10:36 Dose: 325 mg Budesonide/Formoterol Fumarate (Symbicort 160/4.5mcg -) 1 puff IH BID [facility] Last Admin: 02/04/19 10:36 Dose: 1 puff Divalproex Sodium (Depakote *Er* -) 750 mg PO HS [facility] Last Admin: 02/03/19 21:23 Dose: 750 mg Docusate Sodium (Colace -) 300 mg PO [facility] Piperacillin Sod/Tazobactam (Sod 3.375 gm/ Dextrose) 50 mls @ 100 mls/hr IVPB Q8H-IV [facility]; Protocol Last Admin: 02/04/19 10:36 Dose: 100 mls/hr Methylprednisolone Sodium Succinate (Solu-Medrol -) 40 mg IVPUSH Q6H-IV [facility] Last Admin: 02/04/19 08:32 Dose: 40 mg Pantoprazole Sodium (Protonix -) 40 mg PO DAILY [facility] Last Admin: 02/04/19 10:36 Dose: 40 mg Polyethylene Glycol (Miralax (For Daily Use) -) 17 gm PO BID [facility] Sertraline HCl (Zoloft -) 25 mg PO [facility] Last Admin: 02/03/19 21:23 Dose: 25 mg - Objective Vital Signs: Vital Signs Temperature 98.6 F 02/04/19 14:20 Pulse Rate 98 H 02/04/19 14:20 Respiratory Rate 19 02/04/19 14:20 Blood Pressure 135/64 02/04/19 14:20 O2 Sat by Pulse Oximetry (%) 98 02/04/19 14:20 Constitutional: Yes: No Distress, Calm Cardiovascular: Yes: S1, S2 Respiratory: Yes: On Nasal O2, Poor Air Entry Gastrointestinal: Yes: Normal Bowel Sounds, Soft Musculoskeletal: Yes: WNL Extremities: Yes: Other (hematoma on the operated side) Neurological: Yes: Alert, Oriented Psychiatric: Yes: Alert, Oriented Labs: CBC, BMP 02/04/19 07:37 02/04/19 07:37 INR, PTT INR 1.09 (0.83-1.09) 02/03/19 00:29 Assessment/Plan Problem List - Problems (1) Pneumonia Code(s): J18.9 - PNEUMONIA, UNSPECIFIED ORGANISM Qualifiers: Pneumonia type: due to unspecified organism Laterality: right Lung location: lower lobe of lung Qualified Code(s): J18.1 - Lobar pneumonia, unspecified organism (2) Bronchitis Code(s): J40 - BRONCHITIS, NOT SPECIFIED ACUTE OR CHRONIC (3) Closed left hip fracture Code(s): S72.002A - FRACTURE OF UNSP PART OF NECK OF LEFT FEMUR, INIT (4) Shortness of breath Code(s): R06.02 - SHORTNESS OF BREATH (5) Asthma Code(s): J45.909 - UNSPECIFIED ASTHMA, UNCOMPLICATED (6) GERD (gastroesophageal reflux disease) Code(s): K21.9 - GASTRO-ESOPHAGEAL REFLUX DISEASE WITHOUT ESOPHAGITIS (7) Acute on chronic respiratory failure with hypoxemia Code(s): J96.21 - ACUTE AND CHRONIC RESPIRATORY FAILURE WITH HYPOXIA plan continue abx resp support asp precautions physio monitor hematoma rest as per the team
--- NOTE | 2019-02-04 15:20 | CONSULT ---
Consult - text type - Consultation Consultation Note: AVSS A & O X 3 BREATHING COMFORTABLY COMFORTABLE BANDAGES DRY AND INTACT NO SWELLING, ERYTHEMA. MILD ECCHYMOSIS(EXPECTED) CALF SOFT AND NT NVI IMP: ORTHOPEDICALLY STABLE. PLAN: OOB, WBAT, DC ABX SOON POSSIBLE, DC PLANNING
[2019-02-04] MEDS: DOCUSATE SODIUM 100 MG CAPSULE (FP) PO SCH (21:08)
[2019-02-04] MEDS: DIVALPROEX NA *ER* EXTEND REL 250 MG TABLET.SA PO SCH (21:09)
[2019-02-04] MEDS: POLYETHYLENE GLYCOL 3350 119 GM BTL PO SCH (21:09)
[2019-02-04] MEDS: SERTRALINE HCL 25 MG TABLET (FP) PO SCH (21:09)
[2019-02-05] MEDS ORDERED: DEXTROSE 5%-WATER - 50 ML IVPB ONE ×3 (00:42→16:59)
[2019-02-05] MEDS ORDERED: PIPERACILLIN/TAZOBACTAM 3.375 GM VIAL IVPB ONE ×3 (00:42→16:59)
[2019-02-05] MEDS: PIPERACILLIN/TAZOB 3.375 GM 3.375 GM in DEXTROSE 5%-WATER - 50 ML IVPB SCH ×3 (01:47→17:27)
[2019-02-05] MEDS: methylPREDNISolone NA SUCC 40 MG/1 ML VIAL IVPUSH SCH ×4 (03:21→21:35)
[2019-02-05] MEDS: ACETAMINOPHEN 325 MG TABLET (FP) PO PRN (07:05)
[2019-02-05] MEDS: ALBUTEROL SO4 2.5/IPRATROPIUM 0.5 INH SOL 3 ML VIAL.NEB. NEB SCH ×4 (08:22→21:34)
[2019-02-05 08:37] LABS: BASO % 3.2 % (0-2.0); EOS % 0.1 % (0-4.5); HEMATOCRIT 31.3 % (32.4-45.2); HEMOGLOBIN 10.4 GM/dl (10.7-15.3); LYMPH % 3.7 % (8-40); MCH 30.4 pg (25.7-33.7); MCHC 33.1 g/dl (32.0-36.0); MEAN CELL VOLUME 91.8 fl (80-96); MEAN PLT VOLUME 9.2 fl (7.5-11.1); MONO % 1.1 % (3.8-10.2); NEUT % 91.9 % (42.8-82.8); PLATELET COUNT 216 K/MM3 (134-434); RBC 3.41 M/mm3 (3.60-5.2); RDW 12.2 % (11.6-15.6); WHITE BLOOD COUNT 21.1 K/mm3 (4.0-10.8)
[2019-02-05 08:41] LABS: ALBUMIN 2.1 g/dl (3.4-5.0); BILIRUBIN,TOTAL 0.6 mg/dl (0.2-1); CALCIUM 8.2 mg/dl (8.5-10); CREATININE 0.5 mg/dl (0.55-1.3); MAGNESIUM 2.1 mg/dL (1.8-2.4); POTASSIUM 4.7 mmol/L (3.5-5.1); TOT PROT 5.2 g/dl (6.4-8.2)
--- NOTE | 2019-02-05 09:36 | PN ---
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 We reviewed compensatory swallowing strategies which she is aware of. Instead of holding her breath, she sometimes inhales, which can increase aspiration risk. Will continue to educate. No cough with puree,but occasionally with honey thick on tsp. Tongue white coating-Yogurt vs thrush? Asked nursing/[employer] to provide mouth care/ reassess for thrush. MBS as out pt. Swallowing tx upon d/c.
--- NOTE | 2019-02-05 10:00 | PN ---
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 (short form) - Note 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: Ortho Pt seen and examined s/p left hip lela- no complaints at this time Selected Entries 02/05/19 08:50 Temperature 98.1 F Pulse Rate 91 H Respiratory 20 Rate Blood Pressure 155/69 Laboratory Tests 02/05/19 07:15 WBC 21.1 H Hgb 10.4 L Hct 31.3 L Plt Count 216 dressing c/d/i, calf soft, nt nvi a/p PT wbat hip precautions dvt ppx pain control f/u med/ID
--- NOTE | 2019-02-05 10:18 | PN ---
Physical Exam: SUBJECTIVE: Patient seen and examined oob to chair. Son present. Patient says she feels better. OBJECTIVE: Vital Signs Period Temp Pulse Resp BP Sys/Carr Pulse Ox Last 24 Hr 98 F-98.7 F 86-109 17-20 134-158/61-69 90-98 GENERAL: The patient is awake, alert, and fully oriented. Weak. LUNGS: Left sided rales at base HEART: Regular rate and rhythm, S1, S2 ABDOMEN: Soft, nontender, nondistended LLE: 2+ DP pulses, warm, well-perfused; left hip surgical dressing c/d/i, ecchymosis extended distally down the leg NEUROLOGICAL: Cranial nerves II through XII grossly intact. Normal speech, gait not observed Laboratory Results - last 24 hr 02/03/19 02/05/19 02/05/19 10:58 07:15 07:15 WBC 21.1 H RBC 3.41 L Hgb 10.4 L Hct 31.3 L MCV 91.8 MCH 30.4 MCHC 33.1 RDW 12.2 Plt Count 216 MPV 9.2 Absolute Neuts (auto) 19.4 Neutrophils % 91.9 H Lymphocytes % 3.7 L Monocytes % 1.1 L Eosinophils % 0.1 Basophils % 3.2 H Sodium 143 Potassium 4.7 Chloride 105 Carbon Dioxide 30 Anion Gap 8 BUN 26.0 H Creatinine 0.5 L Est GFR (CKD-EPI)AfAm 103.73 Est GFR (CKD-EPI)NonAf 89.50 Random Glucose 171 H Calcium 8.2 L Magnesium 2.1 Total Bilirubin 0.6 AST 19 ALT 22 Alkaline Phosphatase 40 L Total Protein 5.2 L Albumin 2.1 L Urine Color Yellow Urine Appearance Clear Urine pH 6.0 Urine Protein 1+ H Urine Glucose (UA) Negative Urine Ketones Trace Urine Blood Negative Urine Nitrite Negative Urine Bilirubin Negative Urine Urobilinogen 1.0 Ur Leukocyte Esterase Trace H Urine RBC 0-3 Urine WBC 0-3 Ur Transition Epith Cell 1+ Active Medications Generic Name Dose Route Start Last Admin Trade Name Freq PRN Reason Stop Dose Admin Acetaminophen 650 mg 02/03/19 08:00 02/05/19 07:05 Tylenol - PO 650 mg Q6H PRN Administration PAIN OR FEVER Albuterol/Ipratropium 1 amp 02/03/19 08:00 06/26/19 08:22 Duoneb - NEB 1 amp RQID JOSELINE Administration Amlodipine Besylate 5 mg 02/04/19 10:00 02/04/19 10:36 Norvasc - PO 5 mg DAILY JOSELINE Administration Aspirin 325 mg 02/03/19 10:00 02/04/19 10:36 Asa - PO 325 mg DAILY JOSELINE Administration Budesonide/Formoterol Fumarate 1 puff 02/03/19 10:00 02/04/19 21:08 Symbicort 160/4.5mcg - IH 1 puff BID JOSELINE Administration Divalproex Sodium 750 mg 02/03/19 22:00 02/04/19 21:09 Depakote *Er* - PO 750 mg HS JOSELINE Administration Docusate Sodium 300 mg 02/04/19 22:00 02/04/19 21:08 Colace - PO 300 mg HS JOSELINE Administration Piperacillin Sod/Tazobactam 50 mls @ 100 mls/hr 02/03/19 12:15 02/05/19 01:47 Sod 3.375 gm/ Dextrose IVPB 100 mls/hr Q8H-IV JOSELINE Administration Protocol Methylprednisolone Sodium Succinate 40 mg 02/03/19 18:15 02/05/19 08:23 Solu-Medrol - IVPUSH 40 mg Q6H-IV JOSELINE Administration Pantoprazole Sodium 40 mg 02/03/19 10:00 02/04/19 10:36 Protonix - PO 40 mg DAILY JOSELINE Administration Polyethylene Glycol 17 gm 02/04/19 22:00 02/04/19 21:09 Miralax (For Daily Use) - PO 17 gm BID JOSELINE Administration Sertraline HCl 25 mg 02/03/19 22:00 02/04/19 21:09 Zoloft - PO 25 mg HS JOSELINE Administration ASSESSMENT/PLAN 81 year-old female with a PMH significant for HTN, asthma/COPD, GERD, migraines , and chronic back pain. Hospitalized at [place] from 01/26-01/31/19 for left hip fracture s/p left hip hemiarthroplasty. Readmitted for multilobar pneumonia. Severe sepsis secondary to HCAP --02/03 CT: LLL infiltrate (new); small infiltrate TARYN; infiltrate RUL; small right pleural effusion --WBC 17.9k, p 121, lactic acid 2.4 on admission --now afebrile, persistent leukocytosis (on steroids) --cultures negative to date --continue Zosyn (day #3) Acute on chronic hypoxic respiratory failure Acute on chronic COPD --continue duonebs, Symbicort, solumedrol --titrate O2 <94% Left femoral neck fracture s/p left hip hemiarthroplasty 01/29 --working with PT --ortho following Hypertension --continue amlodipine 5mg GERD --Protonix Migraines --continue valproic acid, level therapeutic --continue sertraline FEN Fluids: PO intake adequate Electrolytes: replete as indicated Nutrition: dysphagia thick liquids DVT prophylaxis: OOB, ambulation, SCDs, ASA 325mg daily Physical therapy Dispo: continues to require inpatient care. Full code. Visit type - Emergency Visit Emergency Visit: Yes ED Registration Date: 02/03/19 Care time: The patient presented to the Emergency Department on the above date and was hospitalized for further evaluation of their emergent condition. - New Patient This patient is new to me today: No - Critical Care Critical Care patient: No
[2019-02-05] MEDS ORDERED: PT OWN MED DRAWER 7, Y5N ONE (10:30)
[2019-02-05] MEDS: amLODIPine BESYLATE 5 MG TABLET (FP) PO SCH (10:33)
[2019-02-05] MEDS: PANTOPRAZOLE 40 MG TABLET (FP) PO SCH (10:33)
[2019-02-05] MEDS: ASPIRIN 325 MG TABLET PO SCH (10:33)
[2019-02-05] MEDS: POLYETHYLENE GLYCOL 3350 119 GM BTL PO SCH ×2 (10:34→21:36)
[2019-02-05] MEDS: BUDESONIDE/FORMETEROL FUMARATE 160/4.5 mcg INHALER IH SCH ×2 (10:34→21:35)
--- NOTE | 2019-02-05 13:18 | PN ---
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 (short form) - Note 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: PULMONARY OOB TO CHAIR APPEARS COMFORTABLE FAMILY PRESENT VSS/AFEBRILE Constitutional: Yes: Well Nourished, Calm Eyes: Yes: WNL HENT: Yes: WNL Neck: Yes: WNL Cardiovascular: Yes: Regular Rate and Rhythm, S1, S2 Respiratory: Yes: Rhonchi, Wheezes (less wheezes and rhonchi bilaterally) Gastrointestinal: Yes: Normal Bowel Sounds, Soft Extremities: Yes: WNL Edema: No Labs/meds/notes/images noted IMP ACUTE RESPIRATORY DISTRESS/HYPOXEMIA PNEUMONIA/ATELECTASIS ASTHMA/COPD EXACERBATION RECENT HIP FX/S/P REPAIR HTN ELEVATED LACTATE LEVEL PLAN CONTINUE ABX SUPPLEMENTAL O2 STEROIDS SAME DOSE INHALED BRONCHODILATORS DVT PROPHYLAXIS INCENTIVE SPIROMETER
--- NOTE | 2019-02-05 15:18 | PN ---
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, Physician History of Present Illness: comfortable still on nasal canula on steroids - Current Medication List Current Medications: Active Medications Acetaminophen (Tylenol -) 650 mg PO Q6H PRN PRN Reason: PAIN OR FEVER Last Admin: 02/05/19 07:05 Dose: 650 mg Albuterol/Ipratropium (Duoneb -) 1 amp NEB RQID [facility] Last Admin: 02/05/19 12:28 Dose: 1 amp Amlodipine Besylate (Norvasc -) 5 mg PO DAILY [facility] Last Admin: 02/05/19 10:33 Dose: 5 mg Aspirin (Asa -) 325 mg PO DAILY [facility] Last Admin: 02/05/19 10:33 Dose: 325 mg Budesonide/Formoterol Fumarate (Symbicort 160/4.5mcg -) 1 puff IH BID [facility] Last Admin: 02/05/19 10:34 Dose: 1 puff Divalproex Sodium (Depakote *Er* -) 750 mg PO HS [facility] Last Admin: 02/04/19 21:09 Dose: 750 mg Docusate Sodium (Colace -) 300 mg PO HS [facility] Last Admin: 02/04/19 21:08 Dose: 300 mg Piperacillin Sod/Tazobactam (Sod 3.375 gm/ Dextrose) 50 mls @ 100 mls/hr IVPB Q8H-IV [facility]; Protocol Last Admin: 02/05/19 10:36 Dose: 100 mls/hr Methylprednisolone Sodium Succinate (Solu-Medrol -) 40 mg IVPUSH Q6H-IV [facility] Last Admin: 02/05/19 14:15 Dose: 40 mg Pantoprazole Sodium (Protonix -) 40 mg PO DAILY [facility] Last Admin: 02/05/19 10:33 Dose: 40 mg Polyethylene Glycol (Miralax (For Daily Use) -) 17 gm PO BID [facility] Last Admin: 02/05/19 10:34 Dose: Not Given Sertraline HCl (Zoloft -) 25 mg PO HS [facility] Last Admin: 02/04/19 21:09 Dose: 25 mg - Objective Vital Signs: Vital Signs Temperature 98.4 F 02/05/19 13:53 Pulse Rate 93 H 02/05/19 13:53 Respiratory Rate 19 02/05/19 13:53 Blood Pressure 160/66 02/05/19 13:53 O2 Sat by Pulse Oximetry (%) 95 02/05/19 13:53 Constitutional: Yes: No Distress, Calm Cardiovascular: Yes: S1, S2 Respiratory: Yes: Regular, On Nasal O2, Poor Air Entry Gastrointestinal: Yes: Normal Bowel Sounds, Soft Musculoskeletal: Yes: WNL Extremities: Yes: WNL Neurological: Yes: Alert, Oriented Psychiatric: Yes: Alert, Oriented Labs: CBC, BMP 02/05/19 07:15 02/05/19 07:15 INR, PTT INR 1.09 (0.83-1.09) 02/03/19 00:29 Assessment/Plan Problem List - Problems (1) Pneumonia Code(s): J18.9 - PNEUMONIA, UNSPECIFIED ORGANISM Qualifiers: Pneumonia type: due to unspecified organism Laterality: right Lung location: lower lobe of lung Qualified Code(s): J18.1 - Lobar pneumonia, unspecified organism (2) Bronchitis Code(s): J40 - BRONCHITIS, NOT SPECIFIED ACUTE OR CHRONIC (3) Closed left hip fracture Code(s): S72.002A - FRACTURE OF UNSP PART OF NECK OF LEFT FEMUR, INIT (4) Shortness of breath Code(s): R06.02 - SHORTNESS OF BREATH (5) Asthma Code(s): J45.909 - UNSPECIFIED ASTHMA, UNCOMPLICATED (6) GERD (gastroesophageal reflux disease) Code(s): K21.9 - GASTRO-ESOPHAGEAL REFLUX DISEASE WITHOUT ESOPHAGITIS (7) Acute on chronic respiratory failure with hypoxemia Code(s): J96.21 - ACUTE AND CHRONIC RESPIRATORY FAILURE WITH HYPOXIA plan continue abx resp support asp precautions physio monitor hematoma rest as per the team pul on board
[2019-02-05] MEDS: SERTRALINE HCL 25 MG TABLET (FP) PO SCH (21:34)
[2019-02-05] MEDS: DIVALPROEX NA *ER* EXTEND REL 250 MG TABLET.SA PO SCH (21:36)
[2019-02-05] MEDS: DOCUSATE SODIUM 100 MG CAPSULE (FP) PO SCH (21:36)
[2019-02-06] MEDS ORDERED: PIPERACILLIN/TAZOBACTAM 3.375 GM VIAL IVPB ONE ×3 (01:19→17:39)
[2019-02-06] MEDS ORDERED: DEXTROSE 5%-WATER - 50 ML IVPB ONE ×3 (01:21→17:40)
[2019-02-06] MEDS: PIPERACILLIN/TAZOB 3.375 GM 3.375 GM in DEXTROSE 5%-WATER - 50 ML IVPB SCH ×3 (02:00→17:48)
[2019-02-06] MEDS: methylPREDNISolone NA SUCC 40 MG/1 ML VIAL IVPUSH SCH ×3 (03:00→17:48)
[2019-02-06] MEDS: ALBUTEROL SO4 2.5/IPRATROPIUM 0.5 INH SOL 3 ML VIAL.NEB. NEB SCH ×4 (07:47→22:00)
--- NOTE | 2019-02-06 07:55 | PN ---
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, Physician History of Present Illness: pulmonary alert,feeling better,less congested on nasal o2 sat 96% - Current Medication List Current Medications: Active Medications Acetaminophen (Tylenol -) 650 mg PO Q6H PRN PRN Reason: PAIN OR FEVER Last Admin: 02/05/19 07:05 Dose: 650 mg Albuterol/Ipratropium (Duoneb -) 1 amp NEB RQID [facility] Last Admin: 02/06/19 07:47 Dose: 1 amp Amlodipine Besylate (Norvasc -) 5 mg PO DAILY [facility] Last Admin: 02/05/19 10:33 Dose: 5 mg Aspirin (Asa -) 325 mg PO DAILY [facility] Last Admin: 02/05/19 10:33 Dose: 325 mg Budesonide/Formoterol Fumarate (Symbicort 160/4.5mcg -) 1 puff IH BID [facility] Last Admin: 02/05/19 21:35 Dose: 1 puff Divalproex Sodium (Depakote *Er* -) 750 mg PO HS [facility] Last Admin: 02/05/19 21:36 Dose: 750 mg Docusate Sodium (Colace -) 300 mg PO HS [facility] Last Admin: 02/05/19 21:36 Dose: Not Given Piperacillin Sod/Tazobactam (Sod 3.375 gm/ Dextrose) 50 mls @ 100 mls/hr IVPB Q8H-IV [facility]; Protocol Last Admin: 02/06/19 02:00 Dose: 100 mls/hr Methylprednisolone Sodium Succinate (Solu-Medrol -) 40 mg IVPUSH Q6H-IV [facility] Last Admin: 02/06/19 03:00 Dose: 40 mg Pantoprazole Sodium (Protonix -) 40 mg PO DAILY [facility] Last Admin: 02/05/19 10:33 Dose: 40 mg Polyethylene Glycol (Miralax (For Daily Use) -) 17 gm PO BID [facility] Last Admin: 02/05/19 21:36 Dose: Not Given Sertraline HCl (Zoloft -) 25 mg PO HS [facility] Last Admin: 02/05/19 21:34 Dose: 25 mg - Objective Vital Signs: Vital Signs Temperature 98.6 F 02/06/19 06:00 Pulse Rate 92 H 02/06/19 06:00 Respiratory Rate 20 02/06/19 06:00 Blood Pressure 166/79 02/06/19 06:00 O2 Sat by Pulse Oximetry (%) 93 L 02/06/19 06:00 Constitutional: Yes: Well Nourished, Calm Eyes: Yes: WNL HENT: Yes: WNL Neck: Yes: WNL Cardiovascular: Yes: Regular Rate and Rhythm, S1, S2 Respiratory: Yes: Rhonchi (less rhonchi and wheezes), Wheezes Gastrointestinal: Yes: Normal Bowel Sounds, Soft Extremities: Yes: WNL Edema: No Labs: CBC, BMP Problem List - Problems (1) Pneumonia Code(s): J18.9 - PNEUMONIA, UNSPECIFIED ORGANISM Qualifiers: Pneumonia type: due to unspecified organism Laterality: right Lung location: lower lobe of lung Qualified Code(s): J18.1 - Lobar pneumonia, unspecified organism (2) Bronchitis Code(s): J40 - BRONCHITIS, NOT SPECIFIED ACUTE OR CHRONIC (3) Closed left hip fracture Code(s): S72.002A - FRACTURE OF UNSP PART OF NECK OF LEFT FEMUR, INIT (4) Shortness of breath Code(s): R06.02 - SHORTNESS OF BREATH (5) Asthma Code(s): J45.909 - UNSPECIFIED ASTHMA, UNCOMPLICATED (6) GERD (gastroesophageal reflux disease) Code(s): K21.9 - GASTRO-ESOPHAGEAL REFLUX DISEASE WITHOUT ESOPHAGITIS (7) Acute on chronic respiratory failure with hypoxemia Code(s): J96.21 - ACUTE AND CHRONIC RESPIRATORY FAILURE WITH HYPOXIA Assessment/Plan IMP ACUTE RESPIRATORY DISTRESS/HYPOXEMIA IMPROVING PNEUMONIA/ATELECTASIS ASTHMA/COPD EXACERBATION RECENT HIP FX/S/P REPAIR HTN ELEVATED LACTATE LEVEL CORRECTED PLAN ABX PER ID SUPPLEMENTAL O2 STEROIDS Q 8 INHALED BRONCHODILATORS DVT PROPHYLAXIS INCENTIVE SPIROMETER OOB DR SOTO Problem List - Problems (1) Pneumonia Code(s): J18.9 - PNEUMONIA, UNSPECIFIED ORGANISM Qualifiers: Pneumonia type: due to unspecified organism Laterality: right Lung location: lower lobe of lung Qualified Code(s): J18.1 - Lobar pneumonia, unspecified organism (2) Bronchitis Code(s): J40 - BRONCHITIS, NOT SPECIFIED ACUTE OR CHRONIC (3) Closed left hip fracture Code(s): S72.002A - FRACTURE OF UNSP PART OF NECK OF LEFT FEMUR, INIT (4) Shortness of breath Code(s): R06.02 - SHORTNESS OF BREATH (5) Asthma Code(s): J45.909 - UNSPECIFIED ASTHMA, UNCOMPLICATED (6) GERD (gastroesophageal reflux disease) Code(s): K21.9 - GASTRO-ESOPHAGEAL REFLUX DISEASE WITHOUT ESOPHAGITIS (7) Acute on chronic respiratory failure with hypoxemia Code(s): J96.21 - ACUTE AND CHRONIC RESPIRATORY FAILURE WITH HYPOXIA
--- NOTE | 2019-02-06 08:34 | PN ---
Physical Exam: SUBJECTIVE: Patient seen and examined oob to chair. Says she feels "OK." OBJECTIVE: Vital Signs Period Temp Pulse Resp BP Sys/Carr Pulse Ox Last 24 Hr 97.9 F-98.6 F 91-120 19-20 134-166/61-79 92-96 GENERAL: The patient is awake, alert, and fully oriented. LUNGS: CTA; no wheezing; observed coughing with eating corn HEART: Regular rate and rhythm, S1, S2 ABDOMEN: Soft, nontender, nondistended LLE: 2+ DP pulses, warm, well-perfused; left hip surgical dressing c/d/i, ecchymosis extended distally down the leg NEUROLOGICAL: Cranial nerves II through XII grossly intact. Normal speech, gait not observed Laboratory Results - last 24 hr 02/05/19 02/05/19 07:15 07:15 WBC 21.1 H RBC 3.41 L Hgb 10.4 L Hct 31.3 L MCV 91.8 MCH 30.4 MCHC 33.1 RDW 12.2 Plt Count 216 MPV 9.2 Absolute Neuts (auto) 19.4 Neutrophils % 91.9 H Lymphocytes % 3.7 L Monocytes % 1.1 L Eosinophils % 0.1 Basophils % 3.2 H Sodium 143 Potassium 4.7 Chloride 105 Carbon Dioxide 30 Anion Gap 8 BUN 26.0 H Creatinine 0.5 L Est GFR (CKD-EPI)AfAm 103.73 Est GFR (CKD-EPI)NonAf 89.50 Random Glucose 171 H Calcium 8.2 L Magnesium 2.1 Total Bilirubin 0.6 AST 19 ALT 22 Alkaline Phosphatase 40 L Total Protein 5.2 L Albumin 2.1 L Active Medications Generic Name Dose Route Start Last Admin Trade Name Freq PRN Reason Stop Dose Admin Acetaminophen 650 mg 02/03/19 08:00 02/05/19 07:05 Tylenol - PO 650 mg Q6H PRN Administration PAIN OR FEVER Albuterol/Ipratropium 1 amp 02/03/19 08:00 02/06/19 07:47 Duoneb - NEB 1 amp RQID [facility] Administration Amlodipine Besylate 5 mg 02/04/19 10:00 02/05/19 10:33 Norvasc - PO 5 mg DAILY [facility] Administration Aspirin 325 mg 02/03/19 10:00 02/05/19 10:33 Asa - PO 325 mg DAILY [facility] Administration Budesonide/Formoterol Fumarate 1 puff 02/03/19 10:00 02/05/19 21:35 Symbicort 160/4.5mcg - IH 1 puff BID [facility] Administration Divalproex Sodium 750 mg 02/03/19 22:00 02/05/19 21:36 Depakote *Er* - PO 750 mg HS [facility] Administration Docusate Sodium 300 mg 02/04/19 22:00 02/05/19 21:36 Colace - PO Not Given HS [facility] Piperacillin Sod/Tazobactam 50 mls @ 100 mls/hr 02/03/19 12:15 02/06/19 02:00 Sod 3.375 gm/ Dextrose IVPB 100 mls/hr Q8H-IV [facility] Administration Protocol Methylprednisolone Sodium Succinate 40 mg 02/03/19 18:15 02/06/19 03:00 Solu-Medrol - IVPUSH 40 mg Q6H-IV [facility] Administration Pantoprazole Sodium 40 mg 02/03/19 10:00 02/05/19 10:33 Protonix - PO 40 mg DAILY [facility] Administration Polyethylene Glycol 17 gm 02/04/19 22:00 02/05/19 21:36 Miralax (For Daily Use) - PO Not Given BID [facility] Sertraline HCl 25 mg 02/03/19 22:00 02/05/19 21:34 Zoloft - PO 25 mg HS [facility] Administration Microbiology 02/04/19 13:00 Sputum - Expectorated Gram Stain - Final 02/04/19 13:00 Sputum - Expectorated Sputum Culture - Preliminary Lactose Fermenting Neg Bacilli Staphylococcus Latex Coag Pos Yeast Like Organism 02/03/19 00:29 Blood - Peripheral Venous Blood Culture - Preliminary NO GROWTH OBTAINED AFTER 72 HOURS, INCUBATION TO CONTINUE FOR 2 DAYS. 02/03/19 00:29 Blood - Peripheral Venous Blood Culture - Preliminary NO GROWTH OBTAINED AFTER 72 HOURS, INCUBATION TO CONTINUE FOR 2 DAYS. 02/03/19 00:29 Urine - Urine Clean Catch Urine Culture - Final Yeast Like Organism 02/03/19 00:29 Urine For Antigen Detection Legionella Antigen - Final 02/03/19 00:29 Urine For Antigen Detection Streptococcus pneumoniae Antigen (M - Final ASSESSMENT/PLAN 81 year-old female with a PMH significant for HTN, asthma/COPD, GERD, migraines , and chronic back pain. Hospitalized at [facility] from 6/16-01/31/19 for left hip fracture s/p left hip hemiarthroplasty. Readmitted for multilobar pneumonia. Severe sepsis secondary to HCAP --02/03 CT: LLL infiltrate (new); small infiltrate TARYN; infiltrate RUL; small right pleural effusion --WBC 17.9k, p 121, lactic acid 2.4 on admission --afebrile, persistent leukocytosis (on steroids) --02/03 urine: yeast --02/04 sputum culture: LFGNB, staph coag +, yeast --continue Zosyn (day #4); Vanc 1g x 1 --discuss with ID Acute on chronic hypoxic respiratory failure Acute on chronic COPD --desats to 89% on room air at rest today --continue duonebs, Symbicort, solumedrol --titrate O2 <94% Left femoral neck fracture s/p left hip hemiarthroplasty 01/29 --working with PT --ortho following Hypertension --continue amlodipine 5mg GERD --Protonix Migraines --continue valproic acid, level therapeutic --continue sertraline Dysphagia --several previous swallow studies done --coughing eating corn today --switch to dysphagia, pudding consistency liquids (honey thick + thickeners) FEN Fluids: PO intake adequate Electrolytes: replete as indicated Nutrition: dysphagia pudding thick DVT prophylaxis: OOB, ambulation, SCDs, ASA 325mg daily Physical therapy Dispo: continues to require inpatient care. Full code. Visit type - Emergency Visit Emergency Visit: Yes ED Registration Date: 02/03/19 Care time: The patient presented to the Emergency Department on the above date and was hospitalized for further evaluation of their emergent condition. - New Patient This patient is new to me today: No - Critical Care Critical Care patient: No
[2019-02-06] MEDS: amLODIPine BESYLATE 5 MG TABLET (FP) PO SCH (09:47)
[2019-02-06] MEDS: PANTOPRAZOLE 40 MG TABLET (FP) PO SCH (09:47)
[2019-02-06] MEDS: BUDESONIDE/FORMETEROL FUMARATE 160/4.5 mcg INHALER IH SCH ×2 (09:47→22:03)
[2019-02-06] MEDS: POLYETHYLENE GLYCOL 3350 119 GM BTL PO SCH ×2 (09:47→22:01)
[2019-02-06] MEDS: ASPIRIN 325 MG TABLET PO SCH (09:47)
--- NOTE | 2019-02-06 10:41 | PN ---
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, [employer]ER - Note 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: Selected Entries 02/05/19 02/05/19 02/05/19 02:00 06:00 08:49 Breakfast 50% Diet Tolerated Fair Supper Temperature 98.4 F 98.7 F 02/05/19 02/05/19 02/05/19 08:50 13:53 16:00 Breakfast Diet Tolerated Supper Temperature 98.1 F 98.4 F 98.6 F 02/05/19 02/05/19 02/05/19 17:39 19:38 22:43 Breakfast Diet Tolerated Well Supper 75% Temperature 97.9 F 98.2 F 02/06/19 02/06/19 02/06/19 01:31 06:00 09:44 Breakfast Diet Tolerated Supper Temperature 98.5 F 98.6 F 98.2 F Laboratory Tests 02/03/19 02/04/19 02/05/19 00:29 07:37 07:15 WBC 17.9 H 16.0 H 21.1 H Atelectasis/ PNA h/o aspiration- MBS 06/19/18 swallow reflex was brisk, with silent aspiration on honey thick liquid on a tsn with head flexed. Aspiration was eliminated with BREATH-HOLD technique with effortful swallow. Pt on honey thick liquid, using technique, however, efficiency and benefit can not be r/o at bedside. Discussed with PNP, Pulmonary, pt/daughter. To downgrade to pudding thick liquid (honey thick liquid plus added thickener) for now. Also on IV fluids. Daughter educated and will order pudding thick for home.Call placed to RD to review. Continue breath hold. Monitor Pulmonary status/nutrition/hydration. Also, tongue still coated. r/o thrush.
[2019-02-06] MEDS ORDERED: VANCOMYCIN 1 GRAM (PRE-DOCKED) 1,000 MG/250 ML BAG IVPB ONE (12:00)
--- NOTE | 2019-02-06 13:44 | PN ---
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, Physician - Current Medication List Current Medications: Active Medications Acetaminophen (Tylenol -) 650 mg PO Q6H PRN PRN Reason: PAIN OR FEVER Last Admin: 02/05/19 07:05 Dose: 650 mg Albuterol/Ipratropium (Duoneb -) 1 amp NEB RQID [facility] Last Admin: 02/06/19 11:41 Dose: 1 amp Amlodipine Besylate (Norvasc -) 5 mg PO DAILY [facility] Last Admin: 02/06/19 09:47 Dose: 5 mg Aspirin (Asa -) 325 mg PO DAILY [facility] Last Admin: 02/06/19 09:47 Dose: 325 mg Budesonide/Formoterol Fumarate (Symbicort 160/4.5mcg -) 1 puff IH BID [facility] Last Admin: 02/06/19 09:47 Dose: 1 puff Divalproex Sodium (Depakote *Er* -) 750 mg PO HS [facility] Last Admin: 02/05/19 21:36 Dose: 750 mg Docusate Sodium (Colace -) 300 mg PO HS [facility] Last Admin: 02/05/19 21:36 Dose: Not Given Piperacillin Sod/Tazobactam (Sod 3.375 gm/ Dextrose) 50 mls @ 100 mls/hr IVPB Q8H-IV [facility]; Protocol Last Admin: 02/06/19 09:48 Dose: 100 mls/hr Methylprednisolone Sodium Succinate (Solu-Medrol -) 40 mg IVPUSH Q8H-IV [facility] Pantoprazole Sodium (Protonix -) 40 mg PO DAILY [facility] Last Admin: 02/06/19 09:47 Dose: 40 mg Polyethylene Glycol (Miralax (For Daily Use) -) 17 gm PO BID [facility] Last Admin: 02/06/19 09:47 Dose: Not Given Sertraline HCl (Zoloft -) 25 mg PO HS [facility] Last Admin: 02/05/19 21:34 Dose: 25 mg - Objective Vital Signs: Vital Signs Temperature 98.2 F 02/06/19 09:44 Pulse Rate 89 02/06/19 09:44 Respiratory Rate 19 02/06/19 09:44 Blood Pressure 167/67 02/06/19 09:44 O2 Sat by Pulse Oximetry (%) 95 02/06/19 09:44 Labs: CBC, BMP 02/05/19 07:15 02/05/19 07:15 INR, PTT INR 1.09 (0.83-1.09) 02/03/19 00:29
[2019-02-06] MEDS: ACETAMINOPHEN 325 MG TABLET (FP) PO PRN (16:58)
[2019-02-06] MEDS: SERTRALINE HCL 25 MG TABLET (FP) PO SCH (22:00)
[2019-02-06] MEDS: DIVALPROEX NA *ER* EXTEND REL 250 MG TABLET.SA PO SCH (22:00)
[2019-02-06] MEDS: DOCUSATE SODIUM 100 MG CAPSULE (FP) PO SCH (22:01)
[2019-02-07] MEDS ORDERED: DEXTROSE 5%-WATER - 50 ML IVPB ONE ×3 (00:53→17:41)
[2019-02-07] MEDS ORDERED: PIPERACILLIN/TAZOBACTAM 3.375 GM VIAL IVPB ONE ×3 (00:53→17:41)
[2019-02-07] MEDS: PIPERACILLIN/TAZOB 3.375 GM 3.375 GM in DEXTROSE 5%-WATER - 50 ML IVPB SCH ×3 (02:11→17:50)
[2019-02-07] MEDS: methylPREDNISolone NA SUCC 40 MG/1 ML VIAL IVPUSH SCH ×3 (02:11→17:50)
[2019-02-07] MEDS: NYSTATIN 500,000 UNITS/5 ML SUSPENSION PO SCH ×2 (06:47→12:04)
[2019-02-07 08:17] LABS: HEMATOCRIT 32.8 % (32.4-45.2); HEMOGLOBIN 11.4 GM/dl (10.7-15.3); MCH 31.5 pg (25.7-33.7); MCHC 34.9 g/dl (32.0-36.0); MEAN CELL VOLUME 90.2 fl (80-96); MEAN PLT VOLUME 8.7 fl (7.5-11.1); PLATELET COUNT 240 K/MM3 (134-434); RBC 3.63 M/mm3 (3.60-5.2); RDW 12.1 % (11.6-15.6); WHITE BLOOD COUNT 26.2 K/mm3 (4.0-10.8)
[2019-02-07 08:20] LABS: ALBUMIN 2.5 g/dl (3.4-5.0); BILIRUBIN,TOTAL 0.9 mg/dl (0.2-1); CALCIUM 7.9 mg/dl (8.5-10); CREATININE 0.5 mg/dl (0.55-1.3); TOT PROT 5.6 g/dl (6.4-8.2)
[2019-02-07] MEDS: ALBUTEROL SO4 2.5/IPRATROPIUM 0.5 INH SOL 3 ML VIAL.NEB. NEB SCH ×4 (08:20→21:59)
[2019-02-07] MEDS ORDERED: VANCOMYCIN 1,000 MG in DEXTROSE 5%-WATER - 250 ML IVPB SCH (09:15)
--- NOTE | 2019-02-07 09:16 | PN ---
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, [employer] MACHINE [employer] - Note 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: Selected Entries 02/07/19 02/07/19 02:00 06:00 Temperature 98.6 F 97.9 F Laboratory Tests 02/05/19 02/07/19 07:15 07:42 WBC 21.1 H 26.2 H Nystatin oral suspension ordered for Thrush. Pt on pudding thick liquids. Pt OOB in chair. o2 sat 90. Walked this am, had pulm treatment, chest PT per nursing. Reports not feeling well, coughing and expectorating thick white phlegm. Pt reports eating dinner last night but limited appetite for breakfast. Had a yogurt, no liquids. Pt has IV. Tongue with thick white patches c/w thrush. Nystatin swish and spit given today due to known aspiration on liquids. Discussed with PNP. May need zara mgmt for esophagus? Possibly mix with apple sauce to swallow? Diflucan IV if not medically contraindicated. Getting magic cup but "too sweet" for pt. Consider mixing with yogurt for increased nutritional intake.
--- NOTE | 2019-02-07 09:24 | PN ---
Physical Exam: SUBJECTIVE: Patient seen and examined oob to chair. Feels SOB. OBJECTIVE: Vital Signs Period Temp Pulse Resp BP Sys/Carr Pulse Ox Last 24 Hr 97.9 F-98.8 F 79-99 19-20 142-168/57-77 93-98 GENERAL: The patient is awake, alert, and fully oriented. HEENT: Oral thrush LUNGS: Diminished breath sounds at the bases HEART: Regular rate and rhythm, S1, S2 ABDOMEN: Soft, nontender, nondistended LLE: 2+ DP pulses, warm, well-perfused; left hip surgical dressing c/d/i NEUROLOGICAL: Cranial nerves II through XII grossly intact. Normal speech, gait not observed Laboratory Results - last 24 hr 02/07/19 02/07/19 07:42 07:42 WBC 26.2 H RBC 3.63 Hgb 11.4 Hct 32.8 MCV 90.2 MCH 31.5 MCHC 34.9 RDW 12.1 Plt Count 240 MPV 8.7 Absolute Neuts (auto) 24.7 Neutrophils % No Result Required. Lymphocytes % No Result Required. Sodium 132 L Potassium 4.0 Chloride 96 L Carbon Dioxide 29 Anion Gap 7 L BUN 20.0 H Creatinine 0.5 L Est GFR (CKD-EPI)AfAm 103.73 Est GFR (CKD-EPI)NonAf 89.50 Random Glucose 148 H Calcium 7.9 L Magnesium 2.0 Total Bilirubin 0.9 AST 20 ALT 22 Alkaline Phosphatase 45 Total Protein 5.6 L Albumin 2.5 L Active Medications Generic Name Dose Route Start Last Admin Trade Name Freq PRN Reason Stop Dose Admin Acetaminophen 650 mg 02/03/19 08:00 02/06/19 16:58 Tylenol - PO 650 mg Q6H PRN Administration PAIN OR FEVER Albuterol/Ipratropium 1 amp 02/03/19 08:00 02/07/19 08:20 Duoneb - NEB 1 amp RQID [facility] Administration Amlodipine Besylate 5 mg 02/04/19 10:00 02/06/19 09:47 Norvasc - PO 5 mg DAILY [facility] Administration Aspirin 325 mg 02/03/19 10:00 02/06/19 09:47 Asa - PO 325 mg DAILY [facility] Administration Budesonide/Formoterol Fumarate 1 puff 02/03/19 10:00 02/06/19 22:03 Symbicort 160/4.5mcg - IH 1 puff BID [facility] Administration Divalproex Sodium 750 mg 02/03/19 22:00 02/06/19 22:00 Depakote *Er* - PO 750 mg HS [facility] Administration Docusate Sodium 300 mg 02/04/19 22:00 02/06/19 22:01 Colace - PO Not Given HS [facility] Piperacillin Sod/Tazobactam 50 mls @ 100 mls/hr 02/03/19 12:15 02/07/19 02:11 Sod 3.375 gm/ Dextrose IVPB 100 mls/hr Q8H-IV [facility] Administration Protocol Vancomycin HCl 1,000 mg/ 250 mls @ 166.667 mls/hr 02/07/19 09:15 Dextrose IVPB Q12H [facility] Protocol Methylprednisolone Sodium Succinate 40 mg 02/06/19 18:00 02/07/19 02:11 Solu-Medrol - IVPUSH 40 mg Q8H-IV [facility] Administration Nystatin 500,000 units 02/07/19 06:00 02/07/19 06:47 Nystatin Oral Suspension - PO 500,000 units Q6HPO [facility] Administration Pantoprazole Sodium 40 mg 02/03/19 10:00 02/06/19 09:47 Protonix - PO 40 mg DAILY [facility] Administration Polyethylene Glycol 17 gm 02/04/19 22:00 02/06/19 22:01 Miralax (For Daily Use) - PO Not Given BID [facility] Sertraline HCl 25 mg 02/03/19 22:00 02/06/19 22:00 Zoloft - PO 25 mg HS [facility] Administration Microbiology 02/04/19 13:00 Sputum - Expectorated Gram Stain - Final 02/04/19 13:00 Sputum - Expectorated Sputum Culture - Final Klebsiella Pneumoniae Staphylococcus Aureus Yeast Like Organism 02/03/19 00:29 Blood - Peripheral Venous Blood Culture - Preliminary NO GROWTH OBTAINED AFTER 96 HOURS, INCUBATION TO CONTINUE FOR 1 DAYS. 02/03/19 00:29 Blood - Peripheral Venous Blood Culture - Preliminary NO GROWTH OBTAINED AFTER 96 HOURS, INCUBATION TO CONTINUE FOR 1 DAYS. 02/03/19 00:29 Urine - Urine Clean Catch Urine Culture - Final Yeast Like Organism 02/03/19 00:29 Urine For Antigen Detection Legionella Antigen - Final 02/03/19 00:29 Urine For Antigen Detection Streptococcus pneumoniae Antigen (M - Final ASSESSMENT/PLAN 81 year-old female with a PMH significant for HTN, asthma/COPD, GERD, migraines , and chronic back pain. Hospitalized at [facility] from 01/26-01/31/19 for left hip fracture s/p left hip hemiarthroplasty. Readmitted for multilobar pneumonia. Severe sepsis secondary to Klebsiella and MSSA HCAP Oral candidiasis --02/03 CT: LLL infiltrate (new); small infiltrate TARYN; infiltrate RUL; small right pleural effusion --WBC 17.9k, p 121, lactic acid 2.4 on admission --afebrile, persistent leukocytosis (on steroids) --02/03 urine: yeast --02/04 sputum culture: Klebsiella, MSSA, +yeast --continue Zosyn (day #5) --start PO diflucan (day #1) --repeat blood cultures Acute on chronic hypoxic respiratory failure Acute on chronic COPD --desats to 89% on room air --continue duonebs, Symbicort, solumedrol Left femoral neck fracture s/p left hip hemiarthroplasty 01/29 --working with PT --ortho following Hypertension --continue amlodipine 5mg GERD --Protonix Migraines --continue valproic acid, level therapeutic --continue sertraline Dysphagia --several previous swallow studies done --switch to dysphagia, pudding consistency liquids (honey thick + thickeners) FEN Fluids: PO intake adequate Electrolytes: replete as indicated Nutrition: dysphagia pudding thick DVT prophylaxis: OOB, ambulation, SCDs, ASA 325mg daily Physical therapy Dispo: continues to require inpatient care. Full code. Visit type - Emergency Visit Emergency Visit: Yes ED Registration Date: 02/03/19 Care time: The patient presented to the Emergency Department on the above date and was hospitalized for further evaluation of their emergent condition. - New Patient This patient is new to me today: No - Critical Care Critical Care patient: No
[2019-02-07] MEDS ORDERED: PT OWN MED DRAWER 7, Y5N ONE ×4 (09:28→22:21)
[2019-02-07] MEDS ORDERED: VANCOMYCIN 1 GRAM (PRE-DOCKED) 1,000 MG/250 ML BAG IVPB SCH (09:30)
--- NOTE | 2019-02-07 09:35 | PN ---
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, PHARMACOVIGILANCE SPECIALIST - Note 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: Pt OOB in chair. o2 sat 90. Reports not feeling well, coughing and expectorating thick white phlegm.Pt reports eating dinner last night but limited appetite for breakfast. Had a yogurt, no liquids. Pt has IV. Tongue with thick white patches c/w thrush. Nystatin swish and spit given today. May need zara mgmt for esophagus? Possibly mux with apple sauce to swallow? Diflucan IV if not medically contraindicated. Getting magic cup but "too sweet" for pt. Consider mixing with yogurt for increased nutritional intake.
[2019-02-07] MEDS: POLYETHYLENE GLYCOL 3350 119 GM BTL PO SCH ×2 (09:37→22:04)
[2019-02-07] MEDS: PANTOPRAZOLE 40 MG TABLET (FP) PO SCH (09:37)
[2019-02-07] MEDS: amLODIPine BESYLATE 5 MG TABLET (FP) PO SCH (09:37)
[2019-02-07] MEDS: BUDESONIDE/FORMETEROL FUMARATE 160/4.5 mcg INHALER IH SCH ×2 (09:38→22:05)
[2019-02-07] MEDS: ASPIRIN 325 MG TABLET PO SCH (09:38)
--- NOTE | 2019-02-07 10:56 | PN ---
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, Physician History of Present Illness: patient still not feeling too well breathing better - Current Medication List Current Medications: Active Medications Acetaminophen (Tylenol -) 650 mg PO Q6H PRN PRN Reason: PAIN OR FEVER Last Admin: 02/06/19 16:58 Dose: 650 mg Albuterol/Ipratropium (Duoneb -) 1 amp NEB RQID [facility] Last Admin: 02/07/19 08:20 Dose: 1 amp Amlodipine Besylate (Norvasc -) 5 mg PO DAILY [facility] Last Admin: 02/07/19 09:37 Dose: 5 mg Aspirin (Asa -) 325 mg PO DAILY [facility] Last Admin: 02/07/19 09:38 Dose: 325 mg Budesonide/Formoterol Fumarate (Symbicort 160/4.5mcg -) 1 puff IH BID [facility] Last Admin: 02/07/19 09:38 Dose: 1 puff Divalproex Sodium (Depakote *Er* -) 750 mg PO HS [facility] Last Admin: 02/06/19 22:00 Dose: 750 mg Docusate Sodium (Colace -) 300 mg PO [facility] Last Admin: 02/06/19 22:01 Dose: Not Given Fluconazole (Diflucan -) 100 mg PO DAILY [facility] Piperacillin Sod/Tazobactam (Sod 3.375 gm/ Dextrose) 50 mls @ 100 mls/hr IVPB Q8H-IV [facility]; Protocol Last Admin: 02/07/19 09:38 Dose: 100 mls/hr Vancomycin HCl (Vancomycin (Pre-Docked)) 1,000 mg in 250 mls @ 166.667 mls/hr IVPB Q12H [facility] Stop: 02/07/19 22:59 Last Admin: 02/07/19 09:39 Dose: 166.667 mls/hr Vancomycin HCl 1,000 mg/ (Dextrose) 250 mls @ 166.667 mls/hr IVPB Q12H [facility]; Protocol Methylprednisolone Sodium Succinate (Solu-Medrol -) 40 mg IVPUSH Q8H-IV [facility] Last Admin: 02/07/19 09:38 Dose: 40 mg Nystatin (Nystatin Oral Suspension -) 500,000 units PO Q6HPO [facility] Last Admin: 02/07/19 06:47 Dose: 500,000 units Pantoprazole Sodium (Protonix -) 40 mg PO DAILY [facility] Last Admin: 02/07/19 09:37 Dose: 40 mg Polyethylene Glycol (Miralax (For Daily Use) -) 17 gm PO BID [facility] Last Admin: 02/07/19 09:37 Dose: Not Given Sertraline HCl (Zoloft -) 25 mg PO HS [facility] Last Admin: 02/06/19 22:00 Dose: 25 mg - Objective Vital Signs: Vital Signs Temperature 97.9 F 02/07/19 06:00 Pulse Rate 99 H 02/07/19 08:41 Respiratory Rate 20 02/07/19 08:41 Blood Pressure 168/71 02/07/19 08:41 O2 Sat by Pulse Oximetry (%) 93 L 02/07/19 08:41 Constitutional: Yes: No Distress, Calm Cardiovascular: Yes: Regular Rate and Rhythm Respiratory: Yes: Regular, Poor Air Entry Gastrointestinal: Yes: Normal Bowel Sounds, Soft Musculoskeletal: Yes: WNL Extremities: Yes: WNL Psychiatric: Yes: Alert, Oriented Labs: CBC, BMP 02/07/19 07:42 02/07/19 07:42 INR, PTT INR 1.09 (0.83-1.09) 02/03/19 00:29 Assessment/Plan Problem List - Problems (1) Pneumonia Code(s): J18.9 - PNEUMONIA, UNSPECIFIED ORGANISM Qualifiers: Pneumonia type: due to unspecified organism Laterality: right Lung location: lower lobe of lung Qualified Code(s): J18.1 - Lobar pneumonia, unspecified organism (2) Bronchitis Code(s): J40 - BRONCHITIS, NOT SPECIFIED ACUTE OR CHRONIC (3) Closed left hip fracture Code(s): S72.002A - FRACTURE OF UNSP PART OF NECK OF LEFT FEMUR, INIT (4) Shortness of breath Code(s): R06.02 - SHORTNESS OF BREATH (5) Asthma Code(s): J45.909 - UNSPECIFIED ASTHMA, UNCOMPLICATED (6) GERD (gastroesophageal reflux disease) Code(s): K21.9 - GASTRO-ESOPHAGEAL REFLUX DISEASE WITHOUT ESOPHAGITIS (7) Acute on chronic respiratory failure with hypoxemia Code(s): J96.21 - ACUTE AND CHRONIC RESPIRATORY FAILURE WITH HYPOXIA plan continue abx resp support asp precautions physio monitor hematoma rest as per the team pul on board will add diflucan
[2019-02-07] MEDS: FLUCONAZOLE 100 MG TABLET (UD) PO SCH (12:00)
--- NOTE | 2019-02-07 13:39 | PN ---
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 (short form) - Note 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: PULMONARY OOB TO CHAIR COUGHING WHILE EATING FAMILY PRESENT VSS/AFEBRILE Constitutional: Yes: Well Nourished, Calm Eyes: Yes: WNL HENT: Yes: WNL Neck: Yes: WNL Cardiovascular: Yes: Regular Rate and Rhythm, S1, S2 Respiratory: Yes: Rhonchi, Wheezes (less wheezes and rhonchi bilaterally) Gastrointestinal: Yes: Normal Bowel Sounds, Soft Extremities: Yes: WNL Edema: No Labs/meds/notes/images noted WBC'S INCREASING swallow eval last year : silent aspiration noted/diet changed to thickened liquids/honey consistency IMP ACUTE RESPIRATORY DISTRESS/HYPOXEMIA RESOLVED PNEUMONIA/ATELECTASIS CHRONIC SILENT ASPIRATION ASTHMA/COPD EXACERBATION RECENT HIP FX/S/P REPAIR HTN PLAN CONTINUE ABX PER ID SUPPLEMENTAL O2 STEROIDS TAPER INHALED BRONCHODILATORS DVT PROPHYLAXIS INCENTIVE SPIROMETER CONSIDER RE-CONSULT SWALLOW YARELY JEFFRIES MD
[2019-02-07] MEDS: SERTRALINE HCL 25 MG TABLET (FP) PO SCH (22:04)
[2019-02-07] MEDS: DOCUSATE SODIUM 100 MG CAPSULE (FP) PO SCH (22:04)
[2019-02-07] MEDS: DIVALPROEX NA *ER* EXTEND REL 250 MG TABLET.SA PO SCH (22:04)
[2019-02-08] MEDS ORDERED: PIPERACILLIN/TAZOBACTAM 3.375 GM VIAL IVPB ONE ×3 (00:18→15:50)
[2019-02-08] MEDS ORDERED: DEXTROSE 5%-WATER - 50 ML IVPB ONE ×3 (00:18→15:50)
[2019-02-08] MEDS: PIPERACILLIN/TAZOB 3.375 GM 3.375 GM in DEXTROSE 5%-WATER - 50 ML IVPB SCH ×3 (01:13→17:03)
[2019-02-08] MEDS: methylPREDNISolone NA SUCC 40 MG/1 ML VIAL IVPUSH SCH ×3 (01:13→21:54)
--- NOTE | 2019-02-08 08:14 | PN ---
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, Physician History of Present Illness: pulmonary alert,oob-chair,comfortable,-sob - Current Medication List Current Medications: Active Medications Acetaminophen (Tylenol -) 650 mg PO Q6H PRN PRN Reason: PAIN OR FEVER Last Admin: 02/06/19 16:58 Dose: 650 mg Albuterol/Ipratropium (Duoneb -) 1 amp NEB RQID [facility] Last Admin: 02/07/19 21:59 Dose: 1 amp Amlodipine Besylate (Norvasc -) 5 mg PO DAILY [facility] Last Admin: 02/07/19 09:37 Dose: 5 mg Aspirin (Asa -) 325 mg PO DAILY [facility] Last Admin: 02/07/19 09:38 Dose: 325 mg Budesonide/Formoterol Fumarate (Symbicort 160/4.5mcg -) 1 puff IH BID [facility] Last Admin: 02/07/19 22:05 Dose: 1 puff Divalproex Sodium (Depakote *Er* -) 750 mg PO HS [facility] Last Admin: 02/07/19 22:04 Dose: 750 mg Docusate Sodium (Colace -) 300 mg PO HS [facility] Last Admin: 02/07/19 22:04 Dose: Not Given Fluconazole (Diflucan -) 100 mg PO DAILY [facility] Last Admin: 02/07/19 12:00 Dose: 100 mg Piperacillin Sod/Tazobactam (Sod 3.375 gm/ Dextrose) 50 mls @ 100 mls/hr IVPB Q8H-IV JOSELINE; Protocol Last Admin: 02/08/19 01:13 Dose: 100 mls/hr Methylprednisolone Sodium Succinate (Solu-Medrol -) 20 mg IVPUSH Q8H-IV [facility] Last Admin: 02/08/19 01:13 Dose: 20 mg Pantoprazole Sodium (Protonix -) 40 mg PO DAILY [facility] Last Admin: 02/07/19 09:37 Dose: 40 mg Polyethylene Glycol (Miralax (For Daily Use) -) 17 gm PO BID [facility] Last Admin: 02/07/19 22:04 Dose: Not Given Sertraline HCl (Zoloft -) 25 mg PO HS [facility] Last Admin: 02/07/19 22:04 Dose: 25 mg - Objective Vital Signs: Vital Signs Temperature 98.7 F 02/08/19 06:00 Pulse Rate 88 02/08/19 06:00 Respiratory Rate 18 02/08/19 06:00 Blood Pressure 147/64 02/08/19 06:00 O2 Sat by Pulse Oximetry (%) 97 02/08/19 02:00 Constitutional: Yes: Well Nourished, Calm Eyes: Yes: WNL HENT: Yes: WNL Neck: Yes: WNL Cardiovascular: Yes: Regular Rate and Rhythm, S1, S2 Respiratory: Yes: Rales (few wheezes) Gastrointestinal: Yes: Normal Bowel Sounds, Soft Extremities: Yes: WNL Edema: No Labs: CBC, BMP 02/07/19 07:42 02/07/19 07:42 INR, PTT INR 1.09 (0.83-1.09) 02/03/19 00:29 Problem List - Problems (1) Pneumonia Code(s): J18.9 - PNEUMONIA, UNSPECIFIED ORGANISM Qualifiers: Pneumonia type: due to unspecified organism Laterality: right Lung location: lower lobe of lung Qualified Code(s): J18.1 - Lobar pneumonia, unspecified organism (2) Bronchitis Code(s): J40 - BRONCHITIS, NOT SPECIFIED ACUTE OR CHRONIC (3) Closed left hip fracture Code(s): S72.002A - FRACTURE OF UNSP PART OF NECK OF LEFT FEMUR, INIT (4) Shortness of breath Code(s): R06.02 - SHORTNESS OF BREATH (5) Asthma Code(s): J45.909 - UNSPECIFIED ASTHMA, UNCOMPLICATED (6) GERD (gastroesophageal reflux disease) Code(s): K21.9 - GASTRO-ESOPHAGEAL REFLUX DISEASE WITHOUT ESOPHAGITIS (7) Acute on chronic respiratory failure with hypoxemia Code(s): J96.21 - ACUTE AND CHRONIC RESPIRATORY FAILURE WITH HYPOXIA Assessment/Plan IMP ACUTE RESPIRATORY DISTRESS/HYPOXEMIA IMPROVING PNEUMONIA/ATELECTASIS ASTHMA/COPD EXACERBATION RECENT HIP FX/S/P REPAIR HTN ELEVATED LACTATE LEVEL CORRECTED PLAN ABX PER ID SUPPLEMENTAL O2 STEROIDS Q12 INHALED BRONCHODILATORS DVT PROPHYLAXIS INCENTIVE SPIROMETER OOB DR SOTO Problem List - Problems (1) Pneumonia Code(s): J18.9 - PNEUMONIA, UNSPECIFIED ORGANISM Qualifiers: Pneumonia type: due to unspecified organism Laterality: right Lung location: lower lobe of lung Qualified Code(s): J18.1 - Lobar pneumonia, unspecified organism (2) Bronchitis Code(s): J40 - BRONCHITIS, NOT SPECIFIED ACUTE OR CHRONIC (3) Closed left hip fracture Code(s): S72.002A - FRACTURE OF UNSP PART OF NECK OF LEFT FEMUR, INIT (4) Shortness of breath Code(s): R06.02 - SHORTNESS OF BREATH (5) Asthma Code(s): J45.909 - UNSPECIFIED ASTHMA, UNCOMPLICATED (6) GERD (gastroesophageal reflux disease) Code(s): K21.9 - GASTRO-ESOPHAGEAL REFLUX DISEASE WITHOUT ESOPHAGITIS (7) Acute on chronic respiratory failure with hypoxemia Code(s): J96.21 - ACUTE AND CHRONIC RESPIRATORY FAILURE WITH HYPOXIA
[2019-02-08] MEDS: ALBUTEROL SO4 2.5/IPRATROPIUM 0.5 INH SOL 3 ML VIAL.NEB. NEB SCH ×4 (08:21→21:53)
[2019-02-08] MEDS ORDERED: VANCOMYCIN 1,000 MG in DEXTROSE 5%-WATER - 250 ML IVPB SCH (09:30)
--- NOTE | 2019-02-08 10:22 | PN ---
Physical Exam: SUBJECTIVE: Patient seen and examined at bedside. Pt reports productive cough with yellow to brown/greenish sputum, denies chills, cp, sob,palpitations, abdominal pain, N/V/D or urinary symptoms. OBJECTIVE: Vital Signs Period Temp Pulse Resp BP Sys/Carr Pulse Ox Last 24 Hr 98.2 F-98.7 F 88-101 18-20 119-147/53-64 95-97 GENERAL: The patient is awake, alert, and fully oriented, in no acute distress. HEAD: Normal with no signs of trauma. EYES: PERRL, extraocular movements intact, sclera anicteric, conjunctiva clear. No ptosis. ENT: Ears normal, nares patent, oropharynx clear without exudates, moist mucous membranes. NECK: Trachea midline, full range of motion, supple. LUNGS: Breath sounds equal, clear to auscultation bilaterally, no wheezes, positive crackles, no accessory muscle use. HEART: Regular rate and rhythm, S1, S2 without murmur, rub or gallop. ABDOMEN: Soft, nontender, nondistended, normoactive bowel sounds, no guarding, no rebound, no hepatosplenomegaly, no masses. EXTREMITIES: 2+ pulses, warm, well-perfused, no edema, Left hip dsg intact . NEUROLOGICAL: Cranial nerves II through XII grossly intact. Normal speech, gait not observed. PSYCH: Normal mood, normal affect. SKIN: Warm, dry, normal turgor, no rashes or lesions noted Laboratory Results - last 24 hr 02/07/19 11:40 Vancomycin Pre-Dose 34.4 H* Active Medications Generic Name Dose Route Start Last Admin Trade Name Freq PRN Reason Stop Dose Admin Acetaminophen 650 mg 02/03/19 08:00 02/06/19 16:58 Tylenol - PO 650 mg Q6H PRN Administration PAIN OR FEVER Albuterol/Ipratropium 1 amp 02/03/19 08:00 02/08/19 08:21 Duoneb - NEB 1 amp RQID [facility] Administration Amlodipine Besylate 5 mg 02/04/19 10:00 02/07/19 09:37 Norvasc - PO 5 mg DAILY [facility] Administration Aspirin 325 mg 02/03/19 10:00 02/07/19 09:38 Asa - PO 325 mg DAILY [facility] Administration Budesonide/Formoterol Fumarate 1 puff 02/03/19 10:00 02/07/19 22:05 Symbicort 160/4.5mcg - IH 1 puff BID [facility] Administration Divalproex Sodium 750 mg 02/03/19 22:00 02/07/19 22:04 Depakote *Er* - PO 750 mg HS JOSELINE Administration Docusate Sodium 300 mg 02/04/19 22:00 02/07/19 22:04 Colace - PO Not Given HS JOSELINE Fluconazole 100 mg 02/07/19 11:00 02/07/19 12:00 Diflucan - PO 100 mg DAILY [facility] Administration Piperacillin Sod/Tazobactam 50 mls @ 100 mls/hr 02/03/19 12:15 02/08/19 01:13 Sod 3.375 gm/ Dextrose IVPB 100 mls/hr Q8H-IV [facility]SELINE Administration Protocol Methylprednisolone Sodium Succinate 20 mg 02/07/19 13:40 02/08/19 01:13 Solu-Medrol - IVPUSH 20 mg Q8H-IV JOSELINE Administration Pantoprazole Sodium 40 mg 02/03/19 10:00 02/07/19 09:37 Protonix - PO 40 mg DAILY [facility] Administration Polyethylene Glycol 17 gm 02/04/19 22:00 02/07/19 22:04 Miralax (For Daily Use) - PO Not Given BID [facility] Sertraline HCl 25 mg 02/03/19 22:00 02/07/19 22:04 Zoloft - PO 25 mg HS [facility] Administration Microbiology 02/03/19 00:29 Blood - Peripheral Venous Blood Culture - Final NO GROWTH AFTER 5 DAYS INCUBATION 02/03/19 00:29 Blood - Peripheral Venous Blood Culture - Final NO GROWTH AFTER 5 DAYS INCUBATION 02/04/19 13:00 Sputum - Expectorated Gram Stain - Final 02/04/19 13:00 Sputum - Expectorated Sputum Culture - Final Klebsiella Pneumoniae Staphylococcus Aureus Yeast Like Organism 02/03/19 00:29 Urine - Urine Clean Catch Urine Culture - Final Yeast Like Organism 02/03/19 00:29 Urine For Antigen Detection Legionella Antigen - Final 02/03/19 00:29 Urine For Antigen Detection Streptococcus pneumoniae Antigen (M - Final ASSESSMENT/PLAN: 81 year-old female with a PMH significant for HTN, asthma/COPD, GERD, migraines , and chronic back pain. Hospitalized at [place] from 01/26-01/31/19 for left hip fracture s/p left hip hemiarthroplasty. Readmitted for multilobar pneumonia. *Severe sepsis secondary to Klebsiella and MSSA HCAP Oral candidiasis -02/03 CT: LLL infiltrate (new); small infiltrate TARYN; infiltrate RUL; small right pleural effusion -WBC 17.9k, p 121, lactic acid 2.4 on admission -afebrile, persistent leukocytosis likely due to steroids) -02/03 urine: yeast -02/04 sputum culture: Klebsiella, MSSA, +yeast -continue Zosyn (day #6) -started PO diflucan (day #2) -repeat blood cultures preliminary neg *Acute on chronic hypoxic respiratory failure Acute on chronic COPD - pul following -desats on room air - O2 sat stable on RA -on Solumedrol taper done -continue duonebs, Symbicort *Left femoral neck fracture s/p left hip hemiarthroplasty 01/29 - PT and ortho following - bowel regimen - pain control *Hypertension- BP stable -continue amlodipine 5mg GERD -will cont on Protonix *Migraines -continue valproic acid and sertraline - Valporic acid level therapeutic *Dysphagia - Swallowing eval done -several previous swallow studies done -switched to dysphagia, pudding consistency liquids (honey thick + thickeners) FEN Fluids: PO intake adequate Electrolytes: replete as indicated Nutrition: dysphagia pudding thick DVT prophylaxis: OOB, ambulation, SCDs, ASA 325mg daily Physical therapy Dispo: continues to require inpatient care. Full code. Visit type - Emergency Visit Emergency Visit: Yes ED Registration Date: 02/03/19 Care time: The patient presented to the Emergency Department on the above date and was hospitalized for further evaluation of their emergent condition. - New Patient This patient is new to me today: No - Critical Care Critical Care patient: No
[2019-02-08 10:48] LABS: BASO % 1.4 % (0-2.0); HEMATOCRIT 36.2 % (32.4-45.2); HEMOGLOBIN 11.9 GM/dl (10.7-15.3); LYMPH % 1.8 % (8-40); MCH 29.7 pg (25.7-33.7); MCHC 32.9 g/dl (32.0-36.0); MEAN CELL VOLUME 90.2 fl (80-96); MEAN PLT VOLUME 8.1 fl (7.5-11.1); MONO % 0.6 % (3.8-10.2); NEUT % 96.2 % (42.8-82.8); PLATELET COUNT 271 K/MM3 (134-434); RBC 4.02 M/mm3 (3.60-5.2); RDW 11.9 % (11.6-15.6)
[2019-02-08 10:50] LABS: CALCIUM 7.9 mg/dl (8.5-10); CREATININE 0.5 mg/dl (0.55-1.3); POTASSIUM 4.4 mmol/L (3.5-5.1)
[2019-02-08 10:51] LABS: WHITE BLOOD COUNT 31.1 K/mm3 (4.0-10.8)
[2019-02-08] MEDS: amLODIPine BESYLATE 5 MG TABLET (FP) PO SCH (10:57)
[2019-02-08] MEDS: ASPIRIN 325 MG TABLET PO SCH (10:57)
[2019-02-08] MEDS: FLUCONAZOLE 100 MG TABLET (UD) PO SCH (10:58)
[2019-02-08] MEDS: BUDESONIDE/FORMETEROL FUMARATE 160/4.5 mcg INHALER IH SCH ×2 (10:58→21:56)
[2019-02-08] MEDS: PANTOPRAZOLE 40 MG TABLET (FP) PO SCH (10:58)
[2019-02-08 11:01] VITALS: BMI 28.9
[2019-02-08] MEDS: POLYETHYLENE GLYCOL 3350 119 GM BTL PO SCH ×2 (14:58→21:54)
[2019-02-08] MEDS: SODIUM CHLORIDE 1,000 ML IV SCH (14:58)
[2019-02-08] MEDS: SERTRALINE HCL 25 MG TABLET (FP) PO SCH (21:54)
[2019-02-08] MEDS: DOCUSATE SODIUM 100 MG CAPSULE (FP) PO SCH (21:54)
[2019-02-08] MEDS: DIVALPROEX NA *ER* EXTEND REL 250 MG TABLET.SA PO SCH (21:54)
[2019-02-08] MEDS ORDERED: PT OWN MED DRAWER 7, Y5N ONE (21:56)
[2019-02-09] MEDS ORDERED: DEXTROSE 5%-WATER - 50 ML IVPB ONE ×3 (01:09→18:59)
[2019-02-09] MEDS ORDERED: PIPERACILLIN/TAZOBACTAM 3.375 GM VIAL IVPB ONE ×3 (01:09→18:59)
[2019-02-09] MEDS: PIPERACILLIN/TAZOB 3.375 GM 3.375 GM in DEXTROSE 5%-WATER - 50 ML IVPB SCH ×3 (01:35→19:06)
[2019-02-09] MEDS ORDERED: PT OWN MED DRAWER 7, Y5N ONE ×2 (09:10→21:23)
[2019-02-09] MEDS: FLUCONAZOLE 100 MG TABLET (UD) PO SCH (09:15)
[2019-02-09] MEDS: PANTOPRAZOLE 40 MG TABLET (FP) PO SCH (09:15)
[2019-02-09] MEDS: ALBUTEROL SO4 2.5/IPRATROPIUM 0.5 INH SOL 3 ML VIAL.NEB. NEB SCH ×4 (09:15→20:27)
[2019-02-09] MEDS: ASPIRIN 325 MG TABLET PO SCH (09:15)
[2019-02-09] MEDS: BUDESONIDE/FORMETEROL FUMARATE 160/4.5 mcg INHALER IH SCH ×2 (09:15→21:41)
[2019-02-09] MEDS: amLODIPine BESYLATE 5 MG TABLET (FP) PO SCH (09:15)
[2019-02-09 09:24] LABS: EOS % 0.1 % (0-4.5); MONO % 0.4 % (3.8-10.2)
[2019-02-09 09:44] LABS: CREATININE 0.5 mg/dl (0.55-1.3); POTASSIUM 4.5 mmol/L (3.5-5.1)
[2019-02-09 09:49] LABS: BASO % 0.3 % (0-2.0); HEMATOCRIT 34.7 % (32.4-45.2); HEMOGLOBIN 11.8 GM/dl (10.7-15.3); LYMPH % 1.6 % (8-40); MCH 30.7 pg (25.7-33.7); MCHC 33.8 g/dl (32.0-36.0); MEAN CELL VOLUME 90.6 fl (80-96); MEAN PLT VOLUME 9.1 fl (7.5-11.1); NEUT % 97.6 % (42.8-82.8); PLATELET COUNT 239 K/MM3 (134-434); RBC 3.83 M/mm3 (3.60-5.2); RDW 12.1 % (11.6-15.6); WHITE BLOOD COUNT 27.9 K/mm3 (4.0-10.8)
[2019-02-09] MEDS: methylPREDNISolone NA SUCC 40 MG/1 ML VIAL IVPUSH SCH ×2 (10:00→21:27)
[2019-02-09] MEDS: POLYETHYLENE GLYCOL 3350 119 GM BTL PO SCH ×2 (11:26→21:27)
--- NOTE | 2019-02-09 12:28 | PN ---
Physical Exam: SUBJECTIVE: Patient seen and examined, sitting up eating breakfast, NAD, denies pain OBJECTIVE: Vital Signs Period Temp Pulse Resp BP Sys/Carr Pulse Ox Last 24 Hr 97.6 F-98.8 F 84-90 18-19 122-156/54-86 97-100 GENERAL: The patient is awake, alert, and fully oriented, in no acute distress. NECK: Trachea midline, full range of motion, supple. LUNGS: Rales bilaterally HEART: Regular rate and rhythm, S1, S2 without murmur, rub or gallop. ABDOMEN: Soft, nontender, nondistended, normoactive bowel sounds, no guarding, no rebound, no hepatosplenomegaly, no masses. EXTREMITIES: 2+ pulses, warm, well-perfused, no edema. NEUROLOGICAL: Cranial nerves II through XII grossly intact. Normal speech, gait not observed. PSYCH: Normal mood, normal affect. SKIN: Warm, dry, normal turgor, no rashes or lesions noted Laboratory Results - last 24 hr 02/09/19 02/09/19 06:35 06:35 WBC 27.9 H RBC 3.83 Hgb 11.8 Hct 34.7 MCV 90.6 MCH 30.7 MCHC 33.8 RDW 12.1 Plt Count 239 MPV 9.1 Absolute Neuts (auto) 27.3 Neutrophils % 97.6 H Lymphocytes % 1.6 L Monocytes % 0.4 L Eosinophils % 0.1 Basophils % 0.3 Sodium 132 L Potassium 4.5 Chloride 93 L Carbon Dioxide 26 Anion Gap 13 BUN 18.0 Creatinine 0.5 L Est GFR (CKD-EPI)AfAm 103.73 Est GFR (CKD-EPI)NonAf 89.50 Random Glucose 100 Calcium 8.0 L Active Medications Generic Name Dose Route Start Last Admin Trade Name Freq PRN Reason Stop Dose Admin Acetaminophen 650 mg 02/03/19 08:00 02/06/19 16:58 Tylenol - PO 650 mg Q6H PRN Administration PAIN OR FEVER Albuterol/Ipratropium 1 amp 02/03/19 08:00 02/09/19 09:15 Duoneb - NEB 1 amp RQID [facility] Administration Amlodipine Besylate 5 mg 02/04/19 10:00 02/09/19 09:15 Norvasc - PO 5 mg DAILY [facility] Administration Aspirin 325 mg 02/03/19 10:00 02/09/19 09:15 Asa - PO 325 mg DAILY [facility] Administration Budesonide/Formoterol Fumarate 1 puff 02/03/19 10:00 02/09/19 09:15 Symbicort 160/4.5mcg - IH 1 puff BID [facility] Administration Divalproex Sodium 750 mg 02/03/19 22:00 02/08/19 21:54 Depakote *Er* - PO 750 mg HS [facility]SELINE Administration Docusate Sodium 300 mg 02/04/19 22:00 02/08/19 21:54 Colace - PO 300 mg HS [facility]LINE Administration Fluconazole 100 mg 02/07/19 11:00 02/09/19 09:15 Diflucan - PO 100 mg DAILY [facility] Administration Piperacillin Sod/Tazobactam 50 mls @ 100 mls/hr 02/03/19 12:15 02/09/19 11:25 Sod 3.375 gm/ Dextrose IVPB 100 mls/hr Q8H-IV JOSELINE Administration Protocol Sodium Chloride 1,000 mls @ 75 mls/hr 02/08/19 13:45 02/08/19 14:58 Normal Saline - IV 75 mls/hr ASDIR [facility] Administration Methylprednisolone Sodium Succinate 20 mg 02/08/19 22:00 02/09/19 10:00 Solu-Medrol - IVPUSH 20 mg BID [facility] Administration Pantoprazole Sodium 40 mg 02/03/19 10:00 02/09/19 09:15 Protonix - PO 40 mg DAILY [facility] Administration Polyethylene Glycol 17 gm 02/04/19 22:00 02/09/19 11:26 Miralax (For Daily Use) - PO Not Given BID [facility] Sertraline HCl 25 mg 02/03/19 22:00 02/08/19 21:54 Zoloft - PO 25 mg HS [facility]SELINE Administration ASSESSMENT/PLAN: 81 year-old female with a PMH significant for HTN, asthma/COPD, GERD, migraines , and chronic back pain. Hospitalized at [place] from 01/26-01/31/19 for left hip fracture s/p left hip hemiarthroplasty. Readmitted for multilobar pneumonia. *Severe sepsis secondary to Klebsiella and MSSA HCAP *Oral candidiasis -02/03 CT: LLL infiltrate (new); small infiltrate TARYN; infiltrate RUL; small right pleural effusion -WBC 17.9k, p 121, lactic acid 2.4 on admission -afebrile, persistent leukocytosis likely due to steroids) -02/03 urine: yeast -02/04 sputum culture: Klebsiella, MSSA, +yeast -continue Zosyn (day #7) -started PO diflucan (day #3) -repeat blood cultures preliminary neg *Acute on chronic hypoxic respiratory failure *Acute on chronic COPD - pul following -desats on room air - O2 sat stable on RA -on Solumedrol taper done -continue duonebs, Symbicort *Left femoral neck fracture s/p left hip hemiarthroplasty 01/29 - PT and ortho following - bowel regimen - pain control *Hypertension- BP stable -continue amlodipine 5mg *GERD -will cont on Protonix *Migraines -continue valproic acid and sertraline - Valporic acid level therapeutic *Dysphagia - Swallowing eval done -several previous swallow studies done -switched to dysphagia, pudding consistency liquids (honey thick + thickeners) FEN Fluids: PO intake adequate Electrolytes: replete as indicated Nutrition: dysphagia pudding thick DVT prophylaxis: OOB, ambulation, SCDs, ASA 325mg daily Physical therapy Dispo: continues to require inpatient care. Full code. Visit type - Emergency Visit Emergency Visit: Yes ED Registration Date: 02/03/19 Care time: The patient presented to the Emergency Department on the above date and was hospitalized for further evaluation of their emergent condition. - New Patient This patient is new to me today: Yes Date on this admission: 02/09/19 - Critical Care Critical Care patient: No
[2019-02-09] MEDS: SODIUM CHLORIDE 1,000 ML IV SCH (16:29)
[2019-02-09] MEDS: NYSTATIN 500,000 UNITS/5 ML SUSPENSION PO SCH (20:50)
[2019-02-09] MEDS: DIVALPROEX NA *ER* EXTEND REL 250 MG TABLET.SA PO SCH (21:27)
[2019-02-09] MEDS: DOCUSATE SODIUM 100 MG CAPSULE (FP) PO SCH (21:28)
[2019-02-09] MEDS: SERTRALINE HCL 25 MG TABLET (FP) PO SCH (21:34)
[2019-02-09] MEDS: ALBUTEROL SO4 2.5/IPRATROPIUM 0.5 INH SOL 3 ML VIAL.NEB. NEB PRN (23:50)
[2019-02-10] MEDS: NYSTATIN 500,000 UNITS/5 ML SUSPENSION PO SCH ×5 (00:18→17:20)
[2019-02-10] MEDS ORDERED: DEXTROSE 5%-WATER - 50 ML IVPB ONE ×3 (01:45→17:10)
[2019-02-10] MEDS ORDERED: PIPERACILLIN/TAZOBACTAM 3.375 GM VIAL IVPB ONE ×3 (01:45→17:10)
[2019-02-10] MEDS: PIPERACILLIN/TAZOB 3.375 GM 3.375 GM in DEXTROSE 5%-WATER - 50 ML IVPB SCH ×3 (01:48→17:14)
--- NOTE | 2019-02-10 07:15 | PN ---
Physical Exam: SUBJECTIVE: Patient seen and examined oob to chair. Voices no complaints. OBJECTIVE: Vital Signs Period Temp Pulse Resp BP Sys/Carr Pulse Ox Last 24 Hr 98.1 F-98.7 F 83-129 16-19 122-141/54-70 96-98 GENERAL: The patient is awake, alert, and fully oriented. HEENT: Oral thrush LUNGS: Diminished breath sounds at the bases HEART: Regular rate and rhythm, S1, S2 ABDOMEN: Soft, nontender, nondistended LLE: 2+ DP pulses, warm, well-perfused; no edema NEUROLOGICAL: Cranial nerves II through XII grossly intact. Normal speech, gait not observed Laboratory Results - last 24 hr 02/09/19 02/09/19 06:35 06:35 WBC 27.9 H RBC 3.83 Hgb 11.8 Hct 34.7 MCV 90.6 MCH 30.7 MCHC 33.8 RDW 12.1 Plt Count 239 MPV 9.1 Absolute Neuts (auto) 27.3 Neutrophils % 97.6 H Lymphocytes % 1.6 L Monocytes % 0.4 L Eosinophils % 0.1 Basophils % 0.3 Sodium 132 L Potassium 4.5 Chloride 93 L Carbon Dioxide 26 Anion Gap 13 BUN 18.0 Creatinine 0.5 L Est GFR (CKD-EPI)AfAm 103.73 Est GFR (CKD-EPI)NonAf 89.50 Random Glucose 100 Calcium 8.0 L Active Medications Generic Name Dose Route Start Last Admin Trade Name Freq PRN Reason Stop Dose Admin Acetaminophen 650 mg 02/03/19 08:00 02/06/19 16:58 Tylenol - PO 650 mg Q6H PRN Administration PAIN OR FEVER Albuterol/Ipratropium 1 amp 02/03/19 08:00 02/09/19 20:27 Duoneb - NEB 1 amp RQID JOSELINE Administration Albuterol/Ipratropium 1 amp 02/09/19 23:48 02/09/19 23:50 Duoneb - NEB 1 amp Q4H PRN Administration SHORTNESS OF BREATH Amlodipine Besylate 5 mg 02/04/19 10:00 02/09/19 09:15 Norvasc - PO 5 mg DAILY [facility] Administration Aspirin 325 mg 02/03/19 10:00 02/09/19 09:15 Asa - PO 325 mg DAILY JO[facility]LINE Administration Budesonide/Formoterol Fumarate 1 puff 02/03/19 10:00 02/09/19 21:41 Symbicort 160/4.5mcg - IH 1 puff BID JOSELINE Administration Divalproex Sodium 750 mg 02/03/19 22:00 02/09/19 21:27 Depakote *Er* - PO 750 mg HS JOSELINE Administration Docusate Sodium 300 mg 02/04/19 22:00 02/09/19 21:28 Colace - PO 300 mg HS JOSELINE Administration Fluconazole 100 mg 02/07/19 11:00 02/09/19 09:15 Diflucan - PO 100 mg DAILY [facility] Administration Piperacillin Sod/Tazobactam 50 mls @ 100 mls/hr 02/03/19 12:15 02/10/19 01:48 Sod 3.375 gm/ Dextrose IVPB 100 mls/hr Q8H-IV JOSELINE Administration Protocol Sodium Chloride 1,000 mls @ 75 mls/hr 02/08/19 13:45 02/09/19 16:29 Normal Saline - IV 75 mls/hr ASDIR [facility] Administration Nystatin 500,000 units 02/09/19 20:00 02/10/19 06:19 Nystatin Oral Suspension - PO 500,000 units Q6HPO JOSELINE Administration Pantoprazole Sodium 40 mg 02/03/19 10:00 02/09/19 09:15 Protonix - PO 40 mg DAILY JO[facility] Administration Polyethylene Glycol 17 gm 02/04/19 22:00 02/09/19 21:27 Miralax (For Daily Use) - PO Not Given BID JOSELINE Prednisone 20 mg 02/10/19 10:00 Deltasone - PO DAILY JOSELINE Sertraline HCl 25 mg 02/03/19 22:00 02/09/19 21:34 Zoloft - PO 25 mg HS JOSELINE Administration ASSESSMENT/PLAN: 81 year-old female with a PMH significant for HTN, asthma/COPD, GERD, migraines , and chronic back pain. Hospitalized at [place] from 01/26-01/31/19 for left hip fracture s/p left hip hemiarthroplasty. Readmitted for multilobar pneumonia. Severe sepsis secondary to Klebsiella and MSSA HCAP Oral candidiasis --02/03 CT: LLL infiltrate (new); small infiltrate TARYN; infiltrate RUL; small right pleural effusion --WBC 17.9k, p 121, lactic acid 2.4 on admission --afebrile, persistent leukocytosis (on steroids) --02/03 urine: yeast --02/04 sputum culture: Klebsiella, MSSA, +yeast --continue Zosyn (day #8) --start PO diflucan (day #4) --repeat blood cultures NGTD Acute on chronic hypoxic respiratory failure Acute on chronic COPD --desats to 86% on room air; will discharge with home O2 --continue duonebs, Symbicort, tapering steroids Left femoral neck fracture s/p left hip hemiarthroplasty 01/29 --working with PT --ortho following Hypertension --continue amlodipine 5mg GERD --Protonix Migraines --continue valproic acid, level therapeutic --continue sertraline Dysphagia --several previous swallow studies done --switch to dysphagia, pudding consistency liquids (honey thick + thickeners) FEN Fluids: PO intake adequate Electrolytes: replete as indicated Nutrition: dysphagia pudding thick DVT prophylaxis: OOB, ambulation, SCDs, ASA 325mg daily Physical therapy Dispo: continues to require inpatient care. Full code. Likely discharge tomorrow. Visit type - Emergency Visit Emergency Visit: Yes ED Registration Date: 02/03/19 Care time: The patient presented to the Emergency Department on the above date and was hospitalized for further evaluation of their emergent condition. - New Patient This patient is new to me today: No - Critical Care Critical Care patient: No
[2019-02-10] MEDS: ALBUTEROL SO4 2.5/IPRATROPIUM 0.5 INH SOL 3 ML VIAL.NEB. NEB PRN (07:42)
[2019-02-10] MEDS: ALBUTEROL SO4 2.5/IPRATROPIUM 0.5 INH SOL 3 ML VIAL.NEB. NEB SCH ×4 (07:44→21:06)
[2019-02-10] MEDS: predniSONE 20 MG TABLET (UD) PO SCH (09:02)
[2019-02-10] MEDS: ASPIRIN 325 MG TABLET PO SCH (09:02)
[2019-02-10] MEDS: amLODIPine BESYLATE 5 MG TABLET (FP) PO SCH (09:03)
[2019-02-10] MEDS: PANTOPRAZOLE 40 MG TABLET (FP) PO SCH (09:03)
[2019-02-10] MEDS: POLYETHYLENE GLYCOL 3350 119 GM BTL PO SCH (09:04)
[2019-02-10] MEDS: FLUCONAZOLE 100 MG TABLET (UD) PO SCH (09:07)
[2019-02-10] MEDS: BUDESONIDE/FORMETEROL FUMARATE 160/4.5 mcg INHALER IH SCH ×2 (09:07→21:06)
--- NOTE | 2019-02-10 09:15 | PN ---
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, HEALTH TECHNICAL WRITER - Note 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: Selected Entries 02/07/19 02/07/19 02:00 06:00 Temperature 98.6 F 97.9 F Laboratory Tests 02/05/19 02/07/19 07:15 07:42 WBC 21.1 H 26.2 H Selected Entries 02/09/19 02/09/19 02/09/19 01:55 06:00 09:08 Breakfast 25% Lunch Supper Temperature 97.6 F 98.6 F 02/09/19 02/09/19 02/09/19 13:09 14:02 17:00 Breakfast Lunch 75% Supper 25% Temperature 98.7 F 02/09/19 02/09/19 02/10/19 18:00 22:00 01:32 Breakfast Lunch Supper Temperature 98.5 F 98.5 F 98.1 F 02/10/19 02/10/19 05:54 07:32 Breakfast Lunch Supper Temperature 98.3 F 98.4 F Laboratory Tests 02/07/19 02/08/19 02/09/19 07:42 10:25 06:35 WBC 26.2 H 31.1 H* 27.9 H Nystatin oral suspension ordered for Thrush. Pt on pudding thick liquids/iv. Pt OOB in chair. Weak. Hoarse voice. Reports not feeling well, coughing and expectorating thick villar phlegm with red, per pt. She was told its from the thrush/tongue. Tongue improving,no longer thick white patches but round areas. Nystatin swish and spit given and Diflucan po. Discussed with PNP and pt's daughter. I believe MBS is indicated to determine if pt is aspirating, severity of aspiration, consistencies pt can tolerate, trial of compensatory strategies to determine how to minimize aspiration. Pt's daughter said she feels her mother doesn't like the ambulance and that her legs will hurt. She will consider the mbs in a month. I educated and counseled her on the danger on ongoing aspiration and that an objective instrumental test is indicated to diagnose swallowing function. Bedside evaluation is not reliable and will not determine silent aspiration and stasis. Discussed with [employer] at length and recommended MBS at [facility], if pt agrees. She said that she would speak to EFRAÍN Wilburn.
[2019-02-10 10:53] LABS: BASO % 0.1 % (0-2.0); EOS % 0.1 % (0-4.5); HEMOGLOBIN 11.2 GM/dl (10.7-15.3); LYMPH % 3.4 % (8-40); MCH 30.7 pg (25.7-33.7); MEAN CELL VOLUME 90.4 fl (80-96); NEUT % 93.4 % (42.8-82.8); PLATELET COUNT 207 K/MM3 (134-434); RBC 3.65 M/mm3 (3.60-5.2); WHITE BLOOD COUNT 20.8 K/mm3 (4.0-10.8)
[2019-02-10 11:12] LABS: ALBUMIN 2.4 g/dl (3.4-5.0); BILIRUBIN,TOTAL 0.7 mg/dl (0.2-1); CALCIUM 7.8 mg/dl (8.5-10); CREATININE 0.5 mg/dl (0.55-1.3); POTASSIUM 3.8 mmol/L (3.5-5.1); TOT PROT 5.1 g/dl (6.4-8.2)
--- NOTE | 2019-02-10 13:06 | PN ---
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 (short form) - Note 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: PULMONARY OOB TO CHAIR APPEARS STABLE VSS/AFEBRILE Constitutional: Yes: Well Nourished, Calm Eyes: Yes: WNL HENT: Yes: WNL Neck: Yes: WNL Cardiovascular: Yes: Regular Rate and Rhythm, S1, S2 Respiratory: Yes: Rhonchi, Wheezes (less wheezes and rhonchi bilaterally) Gastrointestinal: Yes: Normal Bowel Sounds, Soft Extremities: Yes: WNL Edema: No Labs/meds/notes/images noted WBC'S INCREASING swallow eval last year : silent aspiration noted/diet changed to thickened liquids/honey consistency IMP ACUTE RESPIRATORY DISTRESS/HYPOXEMIA RESOLVED PNEUMONIA/ATELECTASIS CHRONIC SILENT ASPIRATION ASTHMA/COPD EXACERBATION RECENT HIP FX/S/P REPAIR HTN PLAN ABX PER ID SUPPLEMENTAL O2 STEROIDS TAPER INHALED BRONCHODILATORS DVT PROPHYLAXIS INCENTIVE SPIROMETER ADIA BERGERON CONSULT REVIEWED Leonarda JEFFRIES MD
--- NOTE | 2019-02-10 15:27 | PN ---
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, Physician - Current Medication List Current Medications: Active Medications Acetaminophen (Tylenol -) 650 mg PO Q6H PRN PRN Reason: PAIN OR FEVER Last Admin: 02/06/19 16:58 Dose: 650 mg Albuterol/Ipratropium (Duoneb -) 1 amp NEB RQID [facility] Last Admin: 02/10/19 12:11 Dose: 1 amp Albuterol/Ipratropium (Duoneb -) 1 amp NEB Q4H PRN PRN Reason: SHORTNESS OF BREATH Last Admin: 02/09/19 23:50 Dose: 1 amp Amlodipine Besylate (Norvasc -) 5 mg PO DAILY [facility] Last Admin: 02/10/19 09:03 Dose: 5 mg Aspirin (Asa -) 325 mg PO DAILY [facility] Last Admin: 02/10/19 09:02 Dose: 325 mg Budesonide/Formoterol Fumarate (Symbicort 160/4.5mcg -) 1 puff IH BID [facility] Last Admin: 02/10/19 09:07 Dose: 1 puff Divalproex Sodium (Depakote *Er* -) 750 mg PO HS [facility] Last Admin: 02/09/19 21:27 Dose: 750 mg Docusate Sodium (Colace -) 300 mg PO HS [facility] Last Admin: 02/09/19 21:28 Dose: 300 mg Fluconazole (Diflucan -) 100 mg PO DAILY [facility] Last Admin: 02/10/19 09:07 Dose: 100 mg Piperacillin Sod/Tazobactam (Sod 3.375 gm/ Dextrose) 50 mls @ 100 mls/hr IVPB Q8H-IV [facility]; Protocol Last Admin: 02/10/19 09:03 Dose: 100 mls/hr Sodium Chloride (Normal Saline -) 1,000 mls @ 75 mls/hr IV ASDIR [facility] Last Admin: 02/09/19 16:29 Dose: 75 mls/hr Nystatin (Nystatin Oral Suspension -) 500,000 units PO Q6HPO [facility] Last Admin: 02/10/19 12:11 Dose: 500,000 units Pantoprazole Sodium (Protonix -) 40 mg PO DAILY [facility] Last Admin: 02/10/19 09:03 Dose: 40 mg Polyethylene Glycol (Miralax (For Daily Use) -) 17 gm PO BID [facility] Last Admin: 02/10/19 09:04 Dose: Not Given Prednisone (Deltasone -) 20 mg PO DAILY [facility] Last Admin: 02/10/19 09:02 Dose: 20 mg Sertraline HCl (Zoloft -) 25 mg PO HS [facility] Last Admin: 02/09/19 21:34 Dose: 25 mg - Objective Vital Signs: Vital Signs Temperature 98.1 F 02/10/19 14:00 Pulse Rate 100 H 02/10/19 14:00 Respiratory Rate 18 02/10/19 14:00 Blood Pressure 126/52 L 02/10/19 14:00 O2 Sat by Pulse Oximetry (%) 98 02/10/19 14:00 Labs: CBC, BMP 02/10/19 09:50 02/10/19 09:50 INR, PTT INR 1.09 (0.83-1.09) 02/03/19 00:29
[2019-02-10] MEDS: SODIUM CHLORIDE 1,000 ML IV SCH (16:22)
[2019-02-10] MEDS: DOCUSATE SODIUM 100 MG CAPSULE (FP) PO SCH (21:06)
[2019-02-10] MEDS: SERTRALINE HCL 25 MG TABLET (FP) PO SCH (21:06)
[2019-02-10] MEDS: DIVALPROEX NA *ER* EXTEND REL 250 MG TABLET.SA PO SCH (21:06)
[2019-02-11] MEDS ORDERED: DEXTROSE 5%-WATER - 50 ML IVPB ONE ×2 (03:02→09:36)
[2019-02-11] MEDS ORDERED: PIPERACILLIN/TAZOBACTAM 3.375 GM VIAL IVPB ONE ×2 (03:02→09:36)
[2019-02-11] MEDS: PIPERACILLIN/TAZOB 3.375 GM 3.375 GM in DEXTROSE 5%-WATER - 50 ML IVPB SCH ×2 (03:06→10:32)
[2019-02-11] MEDS: NYSTATIN 500,000 UNITS/5 ML SUSPENSION PO SCH ×3 (03:06→12:59)
[2019-02-11] MEDS: POLYETHYLENE GLYCOL 3350 119 GM BTL PO SCH ×2 (05:47→10:24)
--- NOTE | 2019-02-11 08:57 | PN ---
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, Physician History of Present Illness: patient stable doing well still requiring oxygen - Current Medication List Current Medications: Active Medications Acetaminophen (Tylenol -) 650 mg PO Q6H PRN PRN Reason: PAIN OR FEVER Last Admin: 02/06/19 16:58 Dose: 650 mg Albuterol/Ipratropium (Duoneb -) 1 amp NEB Q4H PRN PRN Reason: SHORTNESS OF BREATH Last Admin: 02/09/19 23:50 Dose: 1 amp Amlodipine Besylate (Norvasc -) 5 mg PO DAILY [facility] Last Admin: 02/10/19 09:03 Dose: 5 mg Aspirin (Asa -) 325 mg PO DAILY [facility] Last Admin: 02/10/19 09:02 Dose: 325 mg Budesonide/Formoterol Fumarate (Symbicort 160/4.5mcg -) 1 puff IH BID [facility] Last Admin: 02/10/19 21:06 Dose: 1 puff Divalproex Sodium (Depakote *Er* -) 750 mg PO HS [facility] Last Admin: 02/10/19 21:06 Dose: 750 mg Docusate Sodium (Colace -) 300 mg PO HS [facility] Last Admin: 02/10/19 21:06 Dose: 300 mg Fluconazole (Diflucan -) 100 mg PO DAILY [facility] Last Admin: 02/10/19 09:07 Dose: 100 mg Piperacillin Sod/Tazobactam (Sod 3.375 gm/ Dextrose) 50 mls @ 100 mls/hr IVPB Q8H-IV [facility]; Protocol Last Admin: 02/11/19 03:06 Dose: 100 mls/hr Sodium Chloride (Normal Saline -) 1,000 mls @ 75 mls/hr IV ASDIR [facility] Last Admin: 02/10/19 16:22 Dose: 75 mls/hr Nystatin (Nystatin Oral Suspension -) 500,000 units PO Q6HPO [facility] Last Admin: 02/11/19 05:47 Dose: Not Given Pantoprazole Sodium (Protonix -) 40 mg PO DAILY [facility] Last Admin: 02/10/19 09:03 Dose: 40 mg Polyethylene Glycol (Miralax (For Daily Use) -) 17 gm PO BID [facility] Last Admin: 02/11/19 05:47 Dose: Not Given Prednisone (Deltasone -) 20 mg PO DAILY [facility] Last Admin: 02/10/19 09:02 Dose: 20 mg Sertraline HCl (Zoloft -) 25 mg PO HS [facility] Last Admin: 02/10/19 21:06 Dose: 25 mg - Objective Vital Signs: Vital Signs Temperature 98.6 F 02/11/19 05:20 Pulse Rate 90 02/11/19 05:20 Respiratory Rate 19 02/11/19 05:20 Blood Pressure 143/68 02/11/19 05:20 O2 Sat by Pulse Oximetry (%) 96 02/11/19 08:49 Constitutional: Yes: No Distress, Calm Cardiovascular: Yes: S1, S2 Respiratory: Yes: Regular, On Nasal O2, Poor Air Entry Gastrointestinal: Yes: Normal Bowel Sounds, Soft Musculoskeletal: Yes: WNL Extremities: Yes: Other Neurological: Yes: Alert, Oriented Psychiatric: Yes: Alert, Oriented Labs: CBC, BMP 02/10/19 09:50 02/10/19 09:50 INR, PTT INR 1.09 (0.83-1.09) 02/03/19 00:29 Assessment/Plan Problem List - Problems (1) Pneumonia Code(s): J18.9 - PNEUMONIA, UNSPECIFIED ORGANISM Qualifiers: Pneumonia type: due to unspecified organism Laterality: right Lung location: lower lobe of lung Qualified Code(s): J18.1 - Lobar pneumonia, unspecified organism (2) Bronchitis Code(s): J40 - BRONCHITIS, NOT SPECIFIED ACUTE OR CHRONIC (3) Closed left hip fracture Code(s): S72.002A - FRACTURE OF UNSP PART OF NECK OF LEFT FEMUR, INIT (4) Shortness of breath Code(s): R06.02 - SHORTNESS OF BREATH (5) Asthma Code(s): J45.909 - UNSPECIFIED ASTHMA, UNCOMPLICATED (6) GERD (gastroesophageal reflux disease) Code(s): K21.9 - GASTRO-ESOPHAGEAL REFLUX DISEASE WITHOUT ESOPHAGITIS (7) Acute on chronic respiratory failure with hypoxemia Code(s): J96.21 - ACUTE AND CHRONIC RESPIRATORY FAILURE WITH HYPOXIA plan continue abx can switch to oral augmentin 875 mg po bid for 7 more days also diflucan for another 7 more days resp support rest as per the team
[2019-02-11] MEDS: PANTOPRAZOLE 40 MG TABLET (FP) PO SCH (10:23)
[2019-02-11] MEDS: FLUCONAZOLE 100 MG TABLET (UD) PO SCH (10:23)
[2019-02-11] MEDS: predniSONE 20 MG TABLET (UD) PO SCH (10:23)
[2019-02-11] MEDS: amLODIPine BESYLATE 5 MG TABLET (FP) PO SCH (10:23)
[2019-02-11] MEDS: ASPIRIN 325 MG TABLET PO SCH (10:23)
[2019-02-11] MEDS: ALBUTEROL SO4 2.5/IPRATROPIUM 0.5 INH SOL 3 ML VIAL.NEB. NEB SCH (10:24)
--- NOTE | 2019-02-11 10:24 | PN ---
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, Physician History of Present Illness: PULMONARY ALERT,COMFORTABLE,-RESP DISTRESS,-SOB,MIN COUGH. O2 SAT 93% ON NASAL O2 - Current Medication List Current Medications: Active Medications Acetaminophen (Tylenol -) 650 mg PO Q6H PRN PRN Reason: PAIN OR FEVER Last Admin: 02/06/19 16:58 Dose: 650 mg Albuterol/Ipratropium (Duoneb -) 1 amp NEB Q4H PRN PRN Reason: SHORTNESS OF BREATH Last Admin: 02/09/19 23:50 Dose: 1 amp Amlodipine Besylate (Norvasc -) 5 mg PO DAILY [facility] Last Admin: 02/10/19 09:03 Dose: 5 mg Aspirin (Asa -) 325 mg PO DAILY [facility] Last Admin: 02/10/19 09:02 Dose: 325 mg Budesonide/Formoterol Fumarate (Symbicort 160/4.5mcg -) 1 puff IH BID [facility] Last Admin: 02/10/19 21:06 Dose: 1 puff Divalproex Sodium (Depakote *Er* -) 750 mg PO HS [facility] Last Admin: 02/10/19 21:06 Dose: 750 mg Docusate Sodium (Colace -) 300 mg PO HS [facility] Last Admin: 02/10/19 21:06 Dose: 300 mg Fluconazole (Diflucan -) 100 mg PO DAILY [facility] Last Admin: 02/10/19 09:07 Dose: 100 mg Piperacillin Sod/Tazobactam (Sod 3.375 gm/ Dextrose) 50 mls @ 100 mls/hr IVPB Q8H-IV [facility]; Protocol Last Admin: 02/11/19 03:06 Dose: 100 mls/hr Sodium Chloride (Normal Saline -) 1,000 mls @ 75 mls/hr IV ASDIR [facility] Last Admin: 02/10/19 16:22 Dose: 75 mls/hr Nystatin (Nystatin Oral Suspension -) 500,000 units PO Q6HPO [facility] Last Admin: 02/11/19 05:47 Dose: Not Given Pantoprazole Sodium (Protonix -) 40 mg PO DAILY [facility] Last Admin: 02/10/19 09:03 Dose: 40 mg Polyethylene Glycol (Miralax (For Daily Use) -) 17 gm PO BID [facility] Last Admin: 02/11/19 05:47 Dose: Not Given Prednisone (Deltasone -) 20 mg PO DAILY [facility] Last Admin: 02/10/19 09:02 Dose: 20 mg Sertraline HCl (Zoloft -) 25 mg PO HS [facility] Last Admin: 02/10/19 21:06 Dose: 25 mg - Objective Vital Signs: Vital Signs Temperature 98.6 F 02/11/19 05:20 Pulse Rate 90 02/11/19 05:20 Respiratory Rate 19 02/11/19 05:20 Blood Pressure 143/68 02/11/19 05:20 O2 Sat by Pulse Oximetry (%) 96 02/11/19 08:49 Constitutional: Yes: Well Nourished, Calm Eyes: Yes: WNL HENT: Yes: WNL Neck: Yes: WNL Cardiovascular: Yes: Regular Rate and Rhythm, S1, S2 Respiratory: Yes: Wheezes (FEW WHEEZES) Gastrointestinal: Yes: Normal Bowel Sounds, Soft Extremities: Yes: WNL Edema: No Labs: CBC, BMP Problem List - Problems (1) Pneumonia Code(s): J18.9 - PNEUMONIA, UNSPECIFIED ORGANISM Qualifiers: Pneumonia type: due to unspecified organism Laterality: right Lung location: lower lobe of lung Qualified Code(s): J18.1 - Lobar pneumonia, unspecified organism (2) Bronchitis Code(s): J40 - BRONCHITIS, NOT SPECIFIED ACUTE OR CHRONIC (3) Closed left hip fracture Code(s): S72.002A - FRACTURE OF UNSP PART OF NECK OF LEFT FEMUR, INIT (4) Shortness of breath Code(s): R06.02 - SHORTNESS OF BREATH (5) Asthma Code(s): J45.909 - UNSPECIFIED ASTHMA, UNCOMPLICATED (6) GERD (gastroesophageal reflux disease) Code(s): K21.9 - GASTRO-ESOPHAGEAL REFLUX DISEASE WITHOUT ESOPHAGITIS (7) Acute on chronic respiratory failure with hypoxemia Code(s): J96.21 - ACUTE AND CHRONIC RESPIRATORY FAILURE WITH HYPOXIA Assessment/Plan IMP ACUTE RESPIRATORY DISTRESS/HYPOXEMIA IMPROVED PNEUMONIA/ATELECTASIS CLINICALLY IMPROVED ASTHMA/COPD EXACERBATION RECENT HIP FX/S/P REPAIR HTN ELEVATED LACTATE LEVEL CORRECTED PLAN ABX PER ID HOME O2 PREDNISONE INHALED BRONCHODILATORS INCENTIVE SPIROMETER F/U CHEST X-RAYS OUTPATIENT DR SOTO Problem List - Problems (1) Pneumonia Code(s): J18.9 - PNEUMONIA, UNSPECIFIED ORGANISM Qualifiers: Pneumonia type: due to unspecified organism Laterality: right Lung location: lower lobe of lung Qualified Code(s): J18.1 - Lobar pneumonia, unspecified organism (2) Bronchitis Code(s): J40 - BRONCHITIS, NOT SPECIFIED ACUTE OR CHRONIC (3) Closed left hip fracture Code(s): S72.002A - FRACTURE OF UNSP PART OF NECK OF LEFT FEMUR, INIT (4) Shortness of breath Code(s): R06.02 - SHORTNESS OF BREATH (5) Asthma Code(s): J45.909 - UNSPECIFIED ASTHMA, UNCOMPLICATED (6) GERD (gastroesophageal reflux disease) Code(s): K21.9 - GASTRO-ESOPHAGEAL REFLUX DISEASE WITHOUT ESOPHAGITIS (7) Acute on chronic respiratory failure with hypoxemia Code(s): J96.21 - ACUTE AND CHRONIC RESPIRATORY FAILURE WITH HYPOXIA
[2019-02-11] MEDS: BUDESONIDE/FORMETEROL FUMARATE 160/4.5 mcg INHALER IH SCH (10:32)
--- NOTE | 2019-02-11 11:58 | DS ---
Physical Exam: SUBJECTIVE: Patient seen and examined oob to chair. OBJECTIVE: Vital Signs Period Temp Pulse Resp BP Sys/Carr Pulse Ox Last 24 Hr 98.1 F-98.6 F 90-106 17-19 115-152/52-68 95-100 PHYSICAL EXAM GENERAL: The patient is awake, alert, and fully oriented. HEENT: Oral thrush, improved LUNGS: Diminished breath sounds at the bases HEART: Regular rate and rhythm, S1, S2 ABDOMEN: Soft, nontender, nondistended LLE: 2+ DP pulses, warm, well-perfused; no edema NEUROLOGICAL: Cranial nerves II through XII grossly intact. Normal speech, gait not observed HOSPITAL COURSE: Date of Admission:02/03/19 Date of Discharge: 02/11/19 Pre-hospital course 81 year-old female with a PMH significant for HTN, asthma/COPD, GERD, migraines , and chronic back pain. Hospitalized at [facility] from 01/26-01/31/19 for left hip fracture s/p left hip hemiarthroplasty. Readmitted for multilobar pneumonia. Subsequent hospital course by problem list Severe sepsis secondary to Klebsiella and MSSA HCAP Oral candidiasis --02/03 CT: LLL infiltrate (new); small infiltrate TARYN; infiltrate RUL; small right pleural effusion --WBC 17.9k, p 121, lactic acid 2.4 on admission --afebrile throughout hospital stay; persistent leukocytosis (on steroids) --02/03 urine: (+) yeast --02/04 sputum culture: (+) Klebsiella, (+) MSSA, (+) yeast --02/03, 02/07 blood cultures negative --treated with Zosyn x 8 days and Diflucan x 4 days --discharged on augmentin and Diflucan for an additional 10 days of treatment Acute on chronic hypoxic respiratory failure Acute on chronic COPD --desats to 86% on room air; will discharge with home O2 --continued duonebs, Symbicort, tapering steroids Left femoral neck fracture s/p left hip hemiarthroplasty 01/29 --working with PT --seen and evaluated by ortho during hospital stay Hypertension --continued amlodipine 5mg GERD --Protonix Migraines --continued valproic acid, level therapeutic --continued sertraline Dysphagia --several previous swallow studies done --switch to dysphagia, pudding consistency liquids (honey thick + thickeners) Minutes to complete discharge: 35 Discharge Summary Reason For Visit: LIZZETTE, SOB Current Active Problems Acute on chronic respiratory failure with hypoxemia (Acute) Pneumonia (Acute) Condition: Improved - Instructions Diet, Activity, Other Instructions: Two prescriptions have been sent to your pharmacy, one for augmentin and one for diflucan. Both are antibiotics. Take as directed and be sure to finish all the medication. It is also recommended you take a higher dose of amlodipine for better blood pressure control. A prescription for amlodipine 5mg daily has been sent to your phamacy. You should discuss this with Dr. Roy. Referrals: Huy Roy MD [Primary Care Provider] - Disposition: HOME - Home Medications Comprehensive Discharge Medication List: Ambulatory Orders Budesonide/Formeterol Fumarate [SYMBICORT 160/4.5mcg -] 1 inh PO BID 03/12/17 Pantoprazole Sodium 40 mg PO DAILY 11/24/17 Divalproex *ER* [Depakote *ER* -] 750 mg PO HS 08/02/18 Sertraline HCl [Zoloft] 25 mg PO HS 01/26/19 Aspirin [ASA -] 325 mg PO DAILY tablet 01/31/19 Prednisone [Deltasone] 20 mg PO ASDIR #13 tablet 01/31/19 Amlodipine Besylate [Norvasc -] 5 mg PO DAILY #30 tablet 02/11/19 Amox-Tr/K Cl [Augmentin - 875Mg Tablet] 1 tab PO BID #20 tablet 02/11/19 Fluconazole [Diflucan -] 100 mg PO DAILY #10 tablet 02/11/19 This patient is new to me today: No Emergency Visit: Yes ED Registration Date: 02/03/19 Care time: The patient presented to the Emergency Department on the above date and was hospitalized for further evaluation of their emergent condition. Critical Care patient: No - Discharge Referral Referred to [facility] Med P.C.: Yes Physician Referral: Huy Roy MD (Int Med)
--- NOTE | 2019-02-11 13:49 | EKG ---
Test Reason : Blood Pressure : / mmHG Vent. Rate : 124 BPM Atrial Rate : 124 BPM P-R Int : 168 ms QRS Dur : 080 ms QT Int : 286 ms P-R-T Axes : 072 007 055 degrees QTc Int : 410 ms SINUS TACHYCARDIA POSSIBLE ANTERIOR INFARCT (CITED ON OR BEFORE 03-FEB-2019) ABNORMAL ECG WHEN COMPARED WITH ECG OF 03-FEB-2019 12:22, NO SIGNIFICANT CHANGE WAS FOUND Confirmed by MD VERONICA, JUSTIN ([id number]) on 02/11/2019 1:49:30 PM Referred By: DEBORA Confirmed By:JUSTIN MARTIN MD
[2019-02-11 13:57] VITALS: BP 136/50; PULSE 101; TEMP 98.4
== END 2019-02-11 16:31 | disposition home or self-care (01) | DRG 871 ==
LOC: FER 00:20 → FM/S 02:59 → UNDOADMOB 03:48 → OBSVTOIN 11:38 → FM/S 12:59
PROVIDERS: ADMIT Internal Medicine; ATTEND Nurse Practitioner Acute Care
DX: A41.01 Sepsis due to Methicillin susceptible Staphylococcus aureus (principal); J96.21 Acute and chronic respiratory failure with hypoxia; J15.211 Pneumonia due to Methicillin susceptible Staphylococcus aureus; J44.1 Chronic obstructive pulmonary disease with (acute) exacerbation; J44.0 Chronic obstructive pulmonary disease with (acute) lower respiratory infection; J90 Pleural effusion, not elsewhere classified; B37.0 Candidal stomatitis; J98.11 Atelectasis; J45.901 Unspecified asthma with (acute) exacerbation; R65.20 Severe sepsis without septic shock; J44.9 Chronic obstructive pulmonary disease, unspecified; I10 Essential (primary) hypertension; R13.10 Dysphagia, unspecified; K21.9 Gastro-esophageal reflux disease without esophagitis; G43.909 Migraine, unspecified, not intractable, without status migrainosus; D72.829 Elevated white blood cell count, unspecified
CPT/HCPCS: 36415; 36600; 71045-TC-FY; 71250-TC; 73700-TC-RT; 80048; 80053; 81003; 81015; 82803; 83605; 83735; 84484; 85025; 85610; 85730; 87040; 87070; 87077; 87086; 87186; 87205; 87899; 93005; 94640; 97116-GP; 97162-GP; 99285-25; G0378; G0480; J0131; J7030

== ENCOUNTER 2021-04-07 18:14 | Emergency (ER) | payer OTHER, MEDICARE ==
[2021-04-07 18:38] VITALS: BMI 26.9
[2021-04-07] MEDS ORDERED: DIPHTH,PERTUSS(ACELL),TET 0.5 ML DISP.SYRIN IM ONE ×2 (19:13→19:19)
[2021-04-07] MEDS ORDERED: ACETAMINOPHEN 500 MG TABLET (FP) PO ONE (19:57)
[2021-04-07] MEDS ORDERED: ACETAMINOPHEN 325 MG TABLET (FP) ONE (19:58)
[2021-04-07 21:51] VITALS: BP 167/90; PULSE 104; TEMP 97.8
== END 2021-04-07 22:09 | disposition home or self-care (01) ==
LOC: FER 18:14
PROC: 0JQ10ZZ Repair Face Subcutaneous Tissue and Fascia, Open Approach (ICD-10-PCS; principal; 2021-04-07)
PROC: 3E0234Z Introduction of Serum, Toxoid and Vaccine into Muscle, Percutaneous Approach (ICD-10-PCS; 2021-04-07)
DX: S42.201A Unspecified fracture of upper end of right humerus, initial encounter for closed fracture (principal); S01.81XA Laceration without foreign body of other part of head, initial encounter; W19.XXXA Unspecified fall, initial encounter; Y92.9 Unspecified place or not applicable
CPT/HCPCS: 12011; 70450-TC; 72125-TC; 73030-TC-RT-FY; 73060-TC-RT-FY; 90471; 90715; 99285-25

== ENCOUNTER 2021-04-16 10:23 | Emergency (ER) | payer OTHER, MEDICARE ==
[2021-04-16 10:33] VITALS: BP 172/81; PULSE 84; TEMP 98.1; BMI 26.6
== END 2021-04-16 10:37 | disposition home or self-care (01) ==
LOC: FER 10:23
DX: Z48.02 Encounter for removal of sutures (principal)
CPT/HCPCS: 99281-25

== ENCOUNTER → 2021-12-19 | Day surgery (SDC) | payer OTHER, MEDICARE | END | disposition home or self-care (01) | LOC: JRADIR 07:56 | PROVIDERS: ATTEND Internal Medicine Geriatric Medicine | PROC: 0G9K3ZX Drainage of Thyroid Gland, Percutaneous Approach, Diagnostic (ICD-10-PCS; principal; 2021-12-19) | DX: E04.1 Nontoxic single thyroid nodule (principal) | CPT/HCPCS: 10005; 76942; 88173; 88305-TC ==